=== PATIENT | female | born 1950 | race Caucasian/White ===

== ENCOUNTER → 2018-01-26 11:09 | Outpatient (REF) | payer MEDICARE, OTHER, SELFPAY ==
[2018-01-26 13:25] LABS: Magnesium 1.4 mg/dL (1.8-2.4)
== END ==
LOC: NCHCN 11:09
PROVIDERS: Visit Provider Nurse Practitioner Family
DX: E83.42 Hypomagnesemia (principal)
CPT/HCPCS: 83735

== ENCOUNTER 2018-03-09 00:25 | Outpatient (CLI) | payer MEDICARE, OTHER, SELFPAY ==
--- NOTE | 2018-03-09 07:42 | DI.MAMMO_ITS ---
SYMPTOM/DIAGNOSIS: SCREENING, Z12.31 MAMMOGRAMS: Mammograms were interpreted according to the usual protocol including computer analysis with CAD system, tomosynthesis and C view imaging. Comparison with prior examinations. Breast density D. Stable calcifications are seen in both breasts. No suspicious masses or microcalcifications are seen. The skin and axilla are unremarkable. No evidence for malignancy. IMPRESSION: No evidence for malignancy, yearly mammography is recommended. Category 2, D. MQSA ASSESSMENT OF FINDINGS: Negative with benign findings. Category 2. Patient will receive a letter notifying them of these results. BI-RADS category D. The breasts are extremely dense, which lowers the sensitivity of mammography.
== END 2018-03-09 00:45 ==
PROVIDERS: PCP Nurse Practitioner Family; Visit Provider Nurse Practitioner Family
DX: Z12.31 Encounter for screening mammogram for malignant neoplasm of breast (principal)
CPT/HCPCS: 77063; 77067

== ENCOUNTER 2018-03-09 12:53 | Outpatient (REF) | payer MEDICARE, OTHER, SELFPAY ==
[2018-03-09 14:09] LABS: Magnesium 1.7 mg/dL (1.8-2.4)
== END 2018-03-09 13:13 ==
LOC: NCHCN 12:53
PROVIDERS: PCP Nurse Practitioner Family; Visit Provider Nurse Practitioner Family
DX: K74.60 Unspecified cirrhosis of liver (principal); R16.0 Hepatomegaly, not elsewhere classified; M81.0 Age-related osteoporosis without current pathological fracture; G62.9 Polyneuropathy, unspecified; E83.42 Hypomagnesemia; G47.00 Insomnia, unspecified; I10 Essential (primary) hypertension; N39.3 Stress incontinence (female) (male)
CPT/HCPCS: 83735

== ENCOUNTER 2018-07-12 21:37 | Outpatient (REF) | payer MEDICARE, OTHER, SELFPAY ==
[2018-07-12 22:28] LABS: Abs Immature Grans 0.02 k/cumm (0.0-0.09); Absolute Eosinophil Count 0.14 k/cumm (0.0-0.7); Absolute Lymphocyte Count 1.79 k/cumm (1.2-3.4); Absolute Monocyte Count 1.99 k/cumm (0.11-0.7); Absolute Neutrophil Count 4.21 k/cumm (1.2-6.7); Basophils % 1.2; Eosinophils % 1.7; HCT 40.5 % (36.0-46.0); HGB 13.7 g/dL (12.0-15.5); Immature Grans % 0.2; Lymphocytes % 21.7; Mean Corp. HGB Concentration 33.8 g/dL (32.0-36.0); Mean Corpuscular Hemoglobin 35.2 pg (27.0-33.0); Mean Corpuscular Volume 104.1 fL (80-95); Monocytes % 24.1; Neutrophils % 51.1; RBC 3.89 m/cumm (4.00-5.20); RBC Distribution Width 16.2 % (11.7-14.6); White Blood Cell Count 8.25 k/cumm (4.4-10.8)
[2018-07-12 22:48] LABS: Platelet Count 88 x1000/uL (130-400)
[2018-07-12 22:49] LABS: Diff Comment Agrees w/ Instrument
[2018-07-12 22:50] LABS: Polychromasia Present
[2018-07-12 23:28] LABS: ALT 75 U/L (12-78); AST 221 U/L (15-37); Albumin 2.9 g/dL (3.4-5.0); Alkaline Phosphatase 183 U/L (46-116); Anion Gap 14.4 mmol/L (3-11); BUN 17 mg/dL (7-18); Bilirubin, Total 2.7 mg/dL (0.2-1.0); CO2 24.6 mmol/L (21.0-32.0); CREATININE 0.76 mg/dL (0.55-1.02); Calcium 8.7 mg/dL (8.5-10.1); Chloride 103 mmol/L (98-107); Cholesterol 276 mg/dL (50-200); Glucose 111 mg/dL (70-100); HDL Cholesterol 26 mg/dL (40-60); LDL CHOLESTEROL 151 mg/dL (<100); Magnesium 1.5 mg/dL (1.8-2.4); Potassium 3.6 mmol/L (3.5-5.1); Sodium 142 mmol/L (136-145); Total Protein 7.3 g/dL (6.4-8.2); Triglyceride 619 mg/dL (30-150)
[2018-07-13 00:16] LABS: TSH (W/Ref FT4) 3.76 uIU/mL (0.358-3.74)
[2018-07-13 00:34] LABS: FREE T4 1.18 ng/dL (0.76-1.46)
== END 2018-07-12 21:57 ==
LOC: NCHCN 21:37
PROVIDERS: PCP Nurse Practitioner Family; Visit Provider Nurse Practitioner Family
DX: E83.42 Hypomagnesemia (principal); I10 Essential (primary) hypertension; R42 Dizziness and giddiness; F32.9 Major depressive disorder, single episode, unspecified; K74.60 Unspecified cirrhosis of liver; M81.0 Age-related osteoporosis without current pathological fracture; G62.9 Polyneuropathy, unspecified
CPT/HCPCS: 80053; 80061; 83721; 83735; 84439; 84443; 85025

== ENCOUNTER 2018-07-21 01:59 | Outpatient (CLI) | payer MEDICARE, OTHER, SELFPAY ==
[2018-07-21 09:21] LABS: Triglyceride 241 mg/dL (30-150); Vitamin B12 1882 pg/mL (193-986)
[2018-07-23 12:20] LABS: Thiamine (Vitamin B1), WB 150 nmol/L (70-180)
== END 2018-07-21 02:19 ==
PROVIDERS: PCP Nurse Practitioner Family; Visit Provider Nurse Practitioner Family
DX: E78.1 Pure hyperglyceridemia (principal); K74.60 Unspecified cirrhosis of liver; D75.89 Other specified diseases of blood and blood-forming organs; D69.6 Thrombocytopenia, unspecified
CPT/HCPCS: 36415; 82607; 84425; 84478

== ENCOUNTER 2018-10-12 09:00 | Outpatient (REF) | payer MEDICARE, OTHER, SELFPAY ==
[2018-10-12 13:25] LABS: Magnesium 1.4 mg/dL (1.8-2.4); TSH (W/Ref FT4) 2.66 uIU/mL (0.358-3.74)
== END 2018-10-12 09:20 ==
LOC: NCHCN 09:00
PROVIDERS: PCP Nurse Practitioner Family; Visit Provider Nurse Practitioner Family
DX: E83.42 Hypomagnesemia (principal); E03.9 Hypothyroidism, unspecified; E87.1 Hypo-osmolality and hyponatremia; I10 Essential (primary) hypertension
CPT/HCPCS: 83735; 84443

== ENCOUNTER 2019-02-11 12:17 | Emergency (ER) | payer MEDICARE, OTHER, SELFPAY ==
[2019-02-11] VITALS (15 sets, daily range): BP systolic 171–193; BP diastolic 76–93; PULSE 96–131; RESP 14–23; TEMP 37.2; O2SAT 94–97
--- NOTE | 2019-02-11 12:27 | W.ED.GENAD ---
Discharge Plan Disposition Patient Disposition: HOME Condition: Good Discharge Details Chief Complaint: GenMedical Clinical Impression: Acute dehydration Primary Care Provider: Nohemy Raines ED Provider: Mike Brower Home Meds and New Rx's Prescriptions: Continued niacin 250 MG capsule, extended release 250 mg PO Q OTHER DAY RF: 0 calcium carbonate [Calcium 500] 500 MG tablet 500 mg PO 2 tabs daily RF: 0 epinephrine 0.3 MG/0.3 ML auto-injector 0.3 mg IM PRN RF: 0 cholecalciferol (vitamin D3) 1,000 UNIT capsule 1,000 unit PO DAILY RF: 0 multivitamin [Multi-Day] 1 EACH tablet 1 ea PO DAILY RF: 0 magnesium oxide 400 MG tablet 250 mg PO DAILY RF: 0 VITAMIN C 500 mg PO DAILY RF: 0 lidocaine 15 GM cream 15 gm Topical Q4H PRN Qty: 1 RF: 1 lisinopril 10 MG tablet 10 mg PO DAILY RF: 0 Discharge Instructions Instructions: Dehydration (ED) Additional Instructions: At this time there is no clear evidence of infectious etiology. I am concerned that taking all of your pills on an empty stomach, and being dehydrated may have certainly been a cause of your symptoms. Please make sure to drink 10 to 12 cups of water per day, follow-up closely with your primary care provider. Your platelets are still low, and your bilirubin is still high. Please follow-up closely with your family doctor in regards to this. If you notice any worsening of your symptoms, or any new symptoms such as vomiting, diarrhea, fever, chills, shortness of breath, chest pain, numbness, weakness, or fainting , please return immediately to the emergency department for reevaluation. Please follow up with your primary care provider as soon as possible for reassessment and reevaluation. As always, it was a pleasure participating in your medical care today. Referrals: Nohemy Raines [Primary Care Provider] - Discharge Data Discharge Date/Time-TO BE ENTERED AT DEPARTURE: 02/11/19 16:04 Medical Decision Making This is a pleasant 68-year-old female without any significant past medical history who presents today for evaluation of Reiger's. She woke up this morning and had notable Reiger's and chills. She had no other complaints whatsoever. Review of systems is negative for pelvic, urinary, abdominal, or chest complaints. No clinical evidence of fever, chest pain or shortness of breath. She does have slightly atypical pupils, which may just be chronic anisocoria, however with her atypical symptoms we will get a CT scan of the head for further evaluation. Will evaluate for infectious etiology, rehydrate and reassess. 12 PM Work-up assessment demonstrates normal laboratory work-up, no white count, hemoglobin stable, platelets are slightly low at 61, and bilirubin is slightly high at 3.8. Platelets have been low like this before, bilirubin is usually slightly elevated but not this high. CT scan reveals no evidence of significant gallbladder or ductal pathology, however liver is notably inflamed. Transaminases demonstrate an elevated AST however this is lower than her normal. Troponin and proBNP are benign. TSH normal. Urinalysis negative for any evidence of infection. Ketones are slightly elevated in the urine. CT scan of the head is negative for acute process, chest x-ray negative for acute process and pneumonia, CT abdomen pelvis negative for acute process per Dr. Bonner. There is evidence of notable heterogenicity of the liver, as well as some esophageal varices. Patient denies any hematemesis. She states that she knows her liver is inflamed, and states that she is following up with her primary care provider in regards to this. Patient was given 1 L of normal saline, and after rehydration she states that she is feeling much better and would like to go home. Her shaking and rigors have completely resolved. She remains afebrile, heart rate is completely resolved, blood pressure normal. No clinical evidence of significant urosepsis or sepsis. With a relatively unremarkable work-up, signs and symptoms appear to be consistent with mild dehydration causing her symptomatology. In the absence of any other life-threatening or significant infectious etiology being determined at this point and with the patient requesting to go home I feel that she can be discharged home with close follow-up. Recommend continuation of hydration at home, we discussed red flags for which to return. I have extensively reviewed the treatment plan and discharge instructions with the patient. I have addressed all patient concerns at this time. The patient was made aware of what symptoms to monitor for that would warrant a return to the emergency department. Discussed the plan with the patient, they demonstrate verbal understanding and agreement with our assessment and plan at this time. EKG 12: 24 Rate 114, intervals normal, sinus tachycardia, no significant ST elevation, minimal nonspecific T wave depression less than 1 mm in V5, no reciprocal elevations, Q waves in lead III. NONCONTRAST HEAD CT: There are no prior comparison exams. There is mild atrophy consistent with the patient's age. The ventricles are normal in size. There is no evidence of mass, acute infarct or hemorrhage. There is minimal mucosal thickening of the ethmoid sinuses. The mastoid air cells appear clear. The orbits are unremarkable. IMPRESSION: Negative head CT. ABDOMEN AND PELVIC CT: The liver shows innumerable low density nodules, the largest near the diaphragm in the left lobe. Ascites is seen around the liver. There is some nodularity to the liver surface and the liver is enlarged and extends into the pelvis. The liver size appears to have increased when compared with the previous exam. There is no biliary dilatation. Stones are seen in the gallbladder. There is no abnormal gallbladder distension or wall thickening. The spleen is normal in size. There are numerous varices in a recannulated umbilical vein and extending along the abdominal wall. The portal vein appears patent. There are dilated veins on the right side of the pelvis extending cephalad and terminating in the splenic vein. The pancreas and adrenals appear normal. The kidneys and bladder are unremarkable. A fibroid is seen in the uterus. There is a small amount of fluid in the pelvis. There are prominent diverticula of the descending and sigmoid colon. The appendix appears normal. There is no abnormal bowel distension or wall thickening. No abscess is seen. The lung bases are clear. The bones have a patchy appearance which could be related to osteoporosis. There are degenerative disc changes at L 4-5. IMPRESSION: Markedly enlarged liver with extremely heterogeneous enhancement with numerous low density lesions. There are prominent varices and a small amount of ascites. PA AND LATERAL CHEST: Comparison is made with 07/24/10. The heart size is at the upper limits of normal. The lungs are clear. No infiltrate, effusion, pulmonary edema or mass is seen. IMPRESSION: No acute abnormality. HPI General Date/Time Provider Initiated Documentation: 02/11/19 12:25. HPI Narrative: This is a 68-year-old female with a past medical history of high cholesterol, who presents today for evaluation of Reiger's. Patient states that this morning when she woke up she had mild shaking, she went to her PCP for assessment, was notably concerned with her symptoms and recommended evaluation in the ER. She does admit to mild intermittent headaches over the last week or so, but is currently asymptomatic. She denies any other symptoms. She denies chest pain, shortness of breath, fever, nausea, vomiting, abdominal pain, flank pain, dysuria, hematuria, increase in urinary frequency, numbness, tingling, or weakness. She denies any symptoms like this before. Patient was brought by EMS, EMS did note normal vitals and blood sugar, but also did note slight asymmetry between her right and left eye. Uncertain if this is acute or chronic. Related Data Home Medications Medication Instructions Recorded Confirmed calcium carbonate [Calcium 500] 500 mg PO 2 tabs daily 09/01/13 02/11/19 cholecalciferol (vitamin D3) 1,000 unit PO DAILY 09/01/13 02/11/19 epinephrine 0.3 mg IM PRN 09/01/13 02/11/19 multivitamin [Multi-Day] 1 ea PO DAILY 09/01/13 02/11/19 niacin 250 mg PO Q OTHER DAY 09/01/13 02/11/19 magnesium oxide 250 mg PO DAILY 10/26/15 02/11/19 Vitamin C 500 mg PO DAILY 08/27/16 02/11/19 lidocaine 15 gm TOPICAL Q4H PRN #1 tube 09/24/16 02/11/19 lisinopril 10 mg PO DAILY 09/26/16 02/11/19 Allergies Allergy/AdvReac Type Severity Reaction Status Date / Time hydrochlorothiazide Allergy Severe Unverified 02/11/19 12:31 simvastatin Allergy Severe Kidney Unverified 02/11/19 12:31 failure venom-honey bee Allergy Severe Unverified 02/11/19 12:31 General Stated Complaint: GenMedical KARTHIK: 2 Review of Systems Review of Systems All systems reviewed & are unremarkable except as noted in HPI and below PFSH Medical History Hyperlipidemia Surgical History (Updated 10/02/16 @ 15:40 by Mariya Mcnamara) Colonoscopy - MAC (09/29/16) Social History Smoking/Tobacco Use Status: Former Tobacco Use Alcohol Intake: current Alcohol Intake frequency: holidays/special occasions only Drug use: Never Substance use type: does not use Do you feel safe at home: Yes Do you feel safe in your relationship?: Yes Exam Narrative Exam Narrative: 1.Const: Well-nourished, Well-developed, appearing stated age 2.Eyes: Pupils reactive to light bilaterally, right pupil is slightly smaller when compared to the left. Uncertain if this is acute or chronic. 3.ENT: Atraumatic external nose and ears. Moist MM. Neck: Symmetric, trachea midline, No thyromegaly. Patient demonstrates good movement of cervical neck. There is no nuchal rigidity, no nuchal tenderness. Patient is able to flex the neck without any difficulty or significant pain. Negative Kernig's and Brudzinski sign. 4.CVS: +S1/S2, No murmurs or gallops. Peripheral pulses 2+ and equal in all extremities. Brisk capillary refill in all extremities. 5.RESP: Unlabored respiratory effort. Clear to auscultation bilaterally. No wheezes rales or rhonchi 6.GI: Soft, Nontender/Nondistended, No hepatosplenomegaly. No guarding or rebound. No suprapubic tenderness. 7.MSK: Normocephalic/Atraumatic, Extremities w/o deformity or ttp No cyanosis or clubbing, Normal movement of all extremities 8.Skin: Warm, Dry. No rashes or lesions. 9.Neuro: environmental studies professor II-XII grossly intact. Sensation grossly intact, no focal neurologic deficits. All 6 cardinal planes of vision are fully intact. No evidence of rotatory or vertical nystagmus. The patient demonstrated a normal [id number]-[id number], good dexterity. There was no evidence of dysdiadochokinesia. Patient was able to ambulate without difficulty. There was no wide-based gait. Romberg, and [id number]-[id number] are both normal on testing. Sensation was intact bilaterally as well as muscle strength bilaterally for all extremities. Patient was able to verbalize butter cup with no slurring, or miss pronunciation. No asterixis. Cerebellar function testing is normal. The patient demonstrates a normal hints exam with no findings concerning for a central event. No vertical nystagmus. The head impulse test is negative for any significant central abnormality. Normal test of skew. No suggestion of a central cerebellar event. 10.Psych: (AAO) x3. Appropriate mood and affect Course Vital Signs Temperature 37.2 C 02/11/19 12:16 Pulse 118 H 02/11/19 12:16 Respiratory Rate 20 02/11/19 12:16 Blood Pressure 193/93 H 02/11/19 12:16 Pulse Oximetry 96 02/11/19 12:16 Temperature 37.2 C 02/11/19 12:16 Pulse 118 H 02/11/19 12:16 Respiratory Rate 20 02/11/19 12:16 Blood Pressure 193/93 H 02/11/19 12:16 Blood Pressure Position Sitting 02/11/19 12:16 Pulse Oximetry 96 02/11/19 12:16 Oxygen Delivery Method Room Air 02/11/19 12:16 Oxygen Flow Rate 0 02/11/19 12:16
[2019-02-11] MEDS: Normal Saline 500 ML 1000 ML IV ×2 (12:43→15:30)
[2019-02-11 12:50] LABS: Absolute Basophil Count 0.08 k/cumm (0.0-0.2); Absolute Eosinophil Count 0.02 k/cumm (0.0-0.7); Absolute Lymphocyte Count 0.99 k/cumm (1.2-3.4); Absolute Monocyte Count 1.53 k/cumm (0.11-0.7); Absolute Neutrophil Count 3.28 k/cumm (1.2-6.7); Basophils % 1.4; Eosinophils % 0.3; HCT 41.5 % (36.0-46.0); HGB 14.1 g/dL (12.0-15.5); Lymphocytes % 16.8; Mean Corpuscular Hemoglobin 34.4 pg (27.0-33.0); Mean Corpuscular Volume 101.2 fL (80-95); Mean Platelet Volume 12.1 fL (8.0-11.0); Monocytes % 25.9; Neutrophils % 55.6; RBC Distribution Width 14.5 % (11.7-14.6)
[2019-02-11 13:09] LABS: Bilirubin Negative (Negative); Blood Negative (Negative); Glucose Negative (Negative); Ketones 15 mg/dL (Negative); Leukocyte Esterase Negative (Negative); Nitrite Negative (Negative); Specific Gravity 1.015 (1.005-1.025); pH >= 9.0 (5-8)
[2019-02-11 13:12] LABS: Diff Comment Diff Reviewed; Platelet Count 61 x1000/uL (130-400)
[2019-02-11 13:13] LABS: Macrocytosis 2+
[2019-02-11 13:17] LABS: ALT 55 U/L (14-59); AST 165 U/L (15-37); Albumin 3.4 g/dL (3.4-5.0); Alkaline Phosphatase 135 U/L (46-116); Anion Gap 15.1 mmol/L (3-11); BUN 14 mg/dL (7-18); Bilirubin, Total 3.8 mg/dL (0.2-1.0); CO2 23.9 mmol/L (21.0-32.0); CREATININE 0.65 mg/dL (0.55-1.02); Calcium 9.8 mg/dL (8.5-10.1); Chloride 103 mmol/L (98-107); Glucose 142 mg/dL (70-100); NT-proBNP 162 pg/mL; Potassium 3.6 mmol/L (3.5-5.1); Sodium 142 mmol/L (136-145); TSH (W/Ref FT4) 3.08 uIU/mL (0.36-3.74); Total Protein 8.4 g/dL (6.4-8.2); Troponin I < 0.05 ng/mL (0.00-0.06)
[2019-02-11 13:19] LABS: Bacteria Negative HPF (Negative); Clarity CLOUDY (Clear); Epithelial Cells Rare HPF (Negative); RBC 0-2 (0-2); WBC 0-2 HPF (0-5)
[2019-02-11 13:20] LABS: C & S Indicated? No; Casts Negative LPF (Negative); Crystals Many Amorphous HPF (Negative); Mucus Negative (Negative)
[2019-02-11 13:25] LABS: INR 1.2 (0.9-1.1); PTT Activated 26.9 sec (21.0-31.4); Prothrombin Time 12.1 sec (9.3-11.0)
--- NOTE | 2019-02-11 13:47 | NUR.NOTE ---
Nursing Note: MD Brower made aware of patient BP 190 systolic.
--- NOTE | 2019-02-11 14:04 | DI.CT_ITS ---
SYMPTOM/DIAGNOSIS: HEADACHES, DIZZY, RIGORS NONCONTRAST HEAD CT: There are no prior comparison exams. There is mild atrophy consistent with the patient's age. The ventricles are normal in size. There is no evidence of mass, acute infarct or hemorrhage. There is minimal mucosal thickening of the ethmoid sinuses. The mastoid air cells appear clear. The orbits are unremarkable. IMPRESSION: Negative head CT.
--- NOTE | 2019-02-11 14:12 | DI.COMBO_ITS ---
SYMPTOM/DIAGNOSIS: RIGORS, MILD COUGH, ELEVATED BILI ABDOMEN AND PELVIC CT: The liver shows innumerable low density nodules, the largest near the diaphragm in the left lobe. Ascites is seen around the liver. There is some nodularity to the liver surface and the liver is enlarged and extends into the pelvis. The liver size appears to have increased when compared with the previous exam. There is no biliary dilatation. Stones are seen in the gallbladder. There is no abnormal gallbladder distension or wall thickening. The spleen is normal in size. There are numerous varices in a recannulated umbilical vein and extending along the abdominal wall. The portal vein appears patent. There are dilated veins on the right side of the pelvis extending cephalad and terminating in the splenic vein. The pancreas and adrenals appear normal. The kidneys and bladder are unremarkable. A fibroid is seen in the uterus. There is a small amount of fluid in the pelvis. There are prominent diverticula of the descending and sigmoid colon. The appendix appears normal. There is no abnormal bowel distension or wall thickening. No abscess is seen. The lung bases are clear. The bones have a patchy appearance which could be related to osteoporosis. There are degenerative disc changes at L 4-5. IMPRESSION: Markedly enlarged liver with extremely heterogeneous enhancement with numerous low density lesions. There are prominent varices and a small amount of ascites. PA AND LATERAL CHEST: Comparison is made with 07/24/10. The heart size is at the upper limits of normal. The lungs are clear. No infiltrate, effusion, pulmonary edema or mass is seen. IMPRESSION: No acute abnormality.
== END 2019-02-11 16:04 | disposition home or self-care (01) ==
PROVIDERS: Emergency Provider Student in an Organized Health Care Education/Training Program; PCP Nurse Practitioner Family
DX: E86.0 Dehydration (principal); I85.00 Esophageal varices without bleeding; D69.6 Thrombocytopenia, unspecified; R82.4 Acetonuria; R93.2 Abnormal findings on diagnostic imaging of liver and biliary tract
CPT/HCPCS: 36415; 80053; 87040; 93005; 99285; 70450; 71046; 74177; 81003; 81015; 83880; 84443; 84484; 85025; 85610; 85730; 93010

== ENCOUNTER 2019-05-27 04:56 | Inpatient (IN) | payer MEDICARE, OTHER, SELFPAY ==
[2019-05-27] VITALS (58 sets, daily range): BP systolic 110–196; BP diastolic 50–88; PULSE 83–113; RESP 0–28; TEMP 36.5–38; O2SAT 88–99
--- NOTE | 2019-05-27 04:36 | ED.GENADUL_ITS ---
Discharge Plan Disposition Patient Disposition: [facility] INPATIENT Condition: Stable Discharge Details Chief Complaint: AMS/LOC Clinical Impression: Loss of consciousness, Hyperbilirubinemia Primary Care Provider: Nohemy Raines ED Provider: Dillan Davis Home Meds and New Rx's Prescriptions: No Action niacin 250 MG capsule, extended release 250 mg PO Q OTHER DAY RF: 0 calcium carbonate [Calcium 500] 500 MG tablet 500 mg PO 2 tabs daily RF: 0 epinephrine 0.3 MG/0.3 ML auto-injector 0.3 mg IM PRN RF: 0 cholecalciferol (vitamin D3) 1,000 UNIT capsule 1,000 unit PO DAILY RF: 0 multivitamin [Multi-Day] 1 EACH tablet 1 ea PO DAILY RF: 0 magnesium oxide 400 MG tablet 250 mg PO DAILY RF: 0 VITAMIN C 500 mg PO DAILY RF: 0 lidocaine 15 GM cream 15 gm Topical Q4H PRN Qty: 1 RF: 1 lisinopril 10 MG tablet 10 mg PO DAILY RF: 0 Medical Decision Making 69 yo female with hx of htn and alcohol abuse comes in after a fall. She is not sure why she was awake but fell to the ground. Her reportedly per EMS heard her fall and she was unresponsive for 10 minutes without reported seizure activity then slowly came to and initially was combative. When ems arrived she was oriented x1 and on arrival to the ED is caox4 and has no focal neuro deficits and NIH of 0. She has no complaints other than posterior head pain where she has a hematoma. No chest pain/tenderness, no abdominal pain/tenderness and no pain in extremities with full rom and noback pain or tenderness. Suspect she may have had a seizure given she was not responding for 10 minutes then didn't return to baseline quickly making syncope less likely and she also had incontinence. Will obtian ct head and c spine and obtain lab work and monitor. BGFS per ems was 120. She does have dried blood from both nares and apparently had a nose bleed earlier in the night where ems went to and it had stopped so she refused transport pt's labs show thrombocytopenia, bilirubin of 7 likely from her heavy alcohol use for years, and mild anion gap acidosis. imaging unremarkable. She remains hd stable, is very unsteady on her feet. Spoke with Dr. Murry who will admit for syncope vs seizure Differential Diagnosis Differential Diagnosis: seizure, syncope, tbi, concussion Medical Records Medical records reviewed: Yes I reviewed the patient's medical records. Imaging Data Radiologic Study: Attestation: I personally reviewed and interpreted this imaging study as follows: Imaging: CT Scan Radiologist's impression: no acute findings on head or c spine ct Lab Data Lab results reviewed: Yes I reviewed the patient's lab results. ECG Data Attestation: I personally reviewed and interpreted this ECG (s) as follows: Prior ECG tracings: not available for review Interpretation: sinus rhythm, rate of 99, pr 131, qtc 475 HPI General Mode of arrival: EMS . Date/Time Provider Initiated Documentation: 05/27/19 05:37 . Limitations to Documentation: no limitations . Information obtained by: patient . History of Present Illness 69 year old F presents to the emergency department with the chief complaint of fall, described as moderate, Patient started experiencing this hour(s) (1) and it has been constant. No relieving factors improve symptom(s), No exacerbating factors reported . Related Data Home Medications Medication Instructions Recorded Confirmed calcium carbonate [Calcium 500] 500 mg PO 2 tabs daily 09/01/13 02/11/19 cholecalciferol (vitamin D3) 1,000 unit PO DAILY 09/01/13 02/11/19 epinephrine 0.3 mg IM PRN 09/01/13 02/11/19 multivitamin [Multi-Day] 1 ea PO DAILY 09/01/13 02/11/19 niacin 250 mg PO Q OTHER DAY 09/01/13 02/11/19 magnesium oxide 250 mg PO DAILY 10/26/15 02/11/19 Vitamin C 500 mg PO DAILY 08/27/16 02/11/19 lidocaine 15 gm TOPICAL Q4H PRN #1 tube 09/24/16 02/11/19 lisinopril 10 mg PO DAILY 09/26/16 02/11/19 Allergies Allergy/AdvReac Type Severity Reaction Status Date / Time hydrochlorothiazide Allergy Severe Unverified 02/11/19 12:31 simvastatin Allergy Severe Kidney Unverified 02/11/19 12:31 failure venom-honey bee Allergy Severe Unverified 02/11/19 12:31 General KARTHIK: 2 Review of Systems All systems reviewed & are unremarkable except as noted in HPI and below Constitutional Constitutional: Denies chills, Denies fever(s) and Denies weakness Cardiovascular Cardiovascular: Denies chest pain and Denies dyspnea Respiratory Respiratory: Denies cough and Denies dyspnea Gastrointestinal Gastrointestinal: Denies abdominal pain, Denies nausea and Denies vomiting Musculoskeletal Musculoskeletal: Denies joint swelling Neurologic Neurologic: Denies weakness PFSH Medical History Hyperlipidemia Surgical History (Updated 10/02/16 @ 15:40 by Mariya Mcnamara) Colonoscopy - MAC (09/29/16) Social History Smoking/Tobacco Use Status: Former Tobacco Use Alcohol Intake: current Alcohol Intake frequency: holidays/special occasions only Drug use: Never Substance use type: does not use Do you feel safe at home: Yes Do you feel safe in your relationship?: Yes Exam Const General: no acute distress Orientation: alert HENMT Head: no palpable skull fracture Ears: external ears normal General nose exam: no nasal discharge Mouth: moist mucous membranes Eyes General: appearance normal, both eyes and all related structures Neck Neck: normal visual inspection Resp Effort & Inspection: normal respiratory effort and able to speak in complete sentences Cardio Rate: regular rate Skin General skin exam: jaundice Neuro General: alert and oriented x3 Extrem General: normal to inspection Psych Mental Status: mental status grossly normal
[2019-05-27 04:45] LABS: Abs Immature Grans 0.02 k/cumm (0.0-0.09); HGB 12.8 g/dL (12.0-15.5); Mean Corp. HGB Concentration 34.6 g/dL (32.0-36.0); Mean Corpuscular Hemoglobin 36.2 pg (27.0-33.0); Mean Corpuscular Volume 104.5 fL (80-95); Mean Platelet Volume 11.8 fL (8.0-11.0); RBC 3.54 m/cumm (4.00-5.20); RBC Distribution Width 15.7 % (11.7-14.6); White Blood Cell Count 7.59 k/cumm (4.4-10.8)
--- NOTE | 2019-05-27 05:04 | NUR.NOTE ---
Nursing Note: Pt cleaned up, was incontinent of stool during fall. Slow to respond but appropriate answers. Denies every having ETOH withdrawl or similar symptoms. States drinks ETOH daily, and had been drinking on the evening of 05/26/19.
[2019-05-27 05:06] LABS: Absolute Eosinophil Count 0.08 k/cumm (0.0-0.7); Absolute Lymphocyte Count 1.59 k/cumm (1.2-3.4); Absolute Monocyte Count 2.35 k/cumm (0.11-0.7); Absolute Neutrophil Count 3.57 k/cumm (1.2-6.7); Diff Comment Manual Differential
--- NOTE | 2019-05-27 05:06 | NUR.NOTE ---
Nursing Note: Pt to CT scan for scans of head and neck. Accompanied by polysomnographic technologist.
[2019-05-27 05:07] LABS: ALT 30 U/L (14-59); AST 103 U/L (15-37); Albumin 2.5 g/dL (3.4-5.0); Alkaline Phosphatase 136 U/L (46-116); Anion Gap 15.6 mmol/L (3-11); BUN 11 mg/dL (7-18); Bilirubin, Total 7.1 mg/dL (0.2-1.0); CO2 20.4 mmol/L (21.0-32.0); CREATININE 0.83 mg/dL (0.55-1.02); Calcium 8.6 mg/dL (8.5-10.1); Chloride 103 mmol/L (98-107); ETHANOL BLOOD < 3.0 mg/dL (<3); Glucose 127 mg/dL (74-106); Macrocytosis 2+; Magnesium 1.2 mg/dL (1.8-2.4); NT-proBNP 890 pg/mL (<300); Potassium 3.5 mmol/L (3.5-5.1); Sodium 139 mmol/L (136-145)
[2019-05-27 05:09] LABS: Troponin I < 0.05 ng/Ml (<0.06)
--- NOTE | 2019-05-27 05:10 | DI.CT_ITS ---
EXAM: CT HEAD CERVICAL SPINE WO CLINICAL HISTORY: fall, pain TECHNIQUE: The exam was performed according to the usual protocol. COMPARISON: CT HEAD WO from 02/11/2019 FINDINGS: CT head: The ventricles and sulci are consistent with the patient's age. There is no acute intracranial hemor rhage, midline shift or mass effect. The ventricles are intact. The basilar cisterns are patent. T he calvarium is intact. There are findings of chronic sinus disease. No fluid levels are seen in th e visualized paranasal sinuses. The mastoid air cells are well pneumatized. There is a scalp hemato ma overlying the right parietal bone. CT spine: No acute fractures or subluxations are seen in the cervical spine. Degenerative changes are present throughout the cervical spine. The odontoid is intact. The lateral masses are well aligned. The so ft tissues are unremarkable. IMPRESSION: 1. No acute intracranial process or calvarial fracture. 2. Right parietal scalp hematoma. 3. No acute fracture or subluxation in the cervical spine.
--- NOTE | 2019-05-27 05:24 | DI.VRAD_ITS ---
PROCEDURE INFORMATION: Exam: CT Head Without Contrast Exam date and time: 05/27/2019 4:58 AM Age: 69 years old Clinical history: Injury or trauma; Fall; Initial encounter; Blunt trauma (contusions or hematomas); Consciousness not specified; Injury date: 05/27/2019 TECHNIQUE: Imaging protocol: Computed tomography of the head without contrast. Radiation optimization: All CT scans at this facility use at least one of these dose optimization techniques: automated exposure control; mA and/or kV adjustment per patient size (includes targeted exams where dose is matched to clinical indication); or iterative reconstruction. COMPARISON: CT HEAD WO 02/11/2019 1:58 PM FINDINGS: Brain: Age-related involutional changes and chronic microvascular ischemic disease. No evidence for acute transcortical infarct. No mass effect or midline shift. No extra-axial collection. No acute intracranial hemorrhage. Basal cisterns are patent. Ventricles: Normal. No ventriculomegaly. Bones/joints: No acute calvarial fracture. Sinuses: Mucosal thickening involving the maxillary sinuses. Mastoid air cells: Visualized mastoid air cells are well aerated. Soft tissues: Right frontal scalp hematoma. No radiopaque foreign body. IMPRESSION: 1. Right frontal scalp hematoma. No radiopaque foreign body. No acute calvarial fracture. 2. No evidence for acute transcortical infarct, acute intracranial hemorrhage, or mass effect. PROCEDURE INFORMATION: Exam: CT Cervical Spine Without Contrast Exam date and time: 05/27/2019 4:58 AM Age: 69 years old Clinical history: Injury or trauma; Fall; Initial encounter; Blunt trauma (contusions or hematomas); Consciousness not specified; Injury date: 05/27/2019 TECHNIQUE: Imaging protocol: Computed tomography images of the cervical spine without contrast. Radiation optimization: All CT scans at this facility use at least one of these dose optimization techniques: automated exposure control; mA and/or kV adjustment per patient size (includes targeted exams where dose is matched to clinical indication); or iterative reconstruction. COMPARISON: CT HEAD WO 02/11/2019 1:58 PM FINDINGS: Vertebrae: No acute fracture or traumatic subluxation. No spondylolisthesis. The atlantooccipital and atlantoaxial articulations are intact. Facet joint alignments are maintained. Discs/Spinal canal/Neural foramina: Age-related degenerative disc disease. Multilevel degenerative changes of the cervical spine. Other bones/joints: Occipital condyles are intact. Prevertebral Space: No prevertebral soft tissue swelling. Soft tissues: Unremarkable. Lungs: Interlobular septal thickening seen at both lung apices. IMPRESSION: 1. No acute fracture or traumatic subluxation. 2. Interlobular septal thickening seen at both lung apices. This may represent pulmonary vascular congestion. Dictated and Authenticated by: Danish Lares MD. Ordering:MITESH Grimaldo MD
--- NOTE | 2019-05-27 05:42 | NUR.NOTE ---
Nursing Note:Pt very shaky on initial attempt to get out bed.
[2019-05-27 05:57] LABS: INR 1.4 (0.9-1.1); PTT Activated 27.8 sec (21.0-31.4); Prothrombin Time 13.8 sec (9.3-11.0)
[2019-05-27 06:00] LABS: Bilirubin, Direct 4.58 mg/dL (0.00-0.20)
--- NOTE | 2019-05-27 06:04 | W.PM.HP.N ---
Date of service: 05/27/19 Time of Service: 06:04 Assessment and Plan Assessment and plan (1) Loss of consciousness: Status: Acute Assessment and plan: LOC. Unclear if primary event was seizure, syncope or mechanical fall -- and whether subsequent confusion was due to primary inciting event or to concussion. All of this in the setting of worsening hepatic synthetic function (and unsteadiness) which in turn is likely secondary to ongoing alcohol use. LOC: will watch on telemetry and use seizure precautions. Unsteadiness PT consult Liver failure, w/o encephalopathy. trial dose Vitamin K, track labs Etoh: [place] protocol History of Present Illness History of Present Illness Chief Complaint: LOC Narrative: 69 female with h/o alcohol abuse. In usual state of health earlier today, then heard a crash, found patient on floor unresponsive, lasting 10 minutes. Came to , combative, confusion resolved by time of arrival in ER. In ER findings of note for scalp hematoma, bilirubin of 7.1 (most recent prior 3.8), Mg 1.2, INR 1.[address] head and spine (except for scalp hematoma). patient noted to be very unsteady on feet, admitted for further management. Patient has no recollection of these events, history per and ER. Review of Systems All systems reviewed & are unremarkable except as noted in HPI and below PFSH Medical History Hyperlipidemia Surgical History Colonoscopy - MAC (09/29/16) Social History Smoking/Tobacco Use Status: Former Tobacco Use Alcohol Intake: current Alcohol Intake frequency: holidays/special occasions only Drug use: Never Substance use type: does not use Do you feel safe at home: Yes Do you feel safe in your relationship?: Yes Meds Home Medications and Allergies Home Medications Medication Instructions Recorded Confirmed Type calcium carbonate [Calcium 500] 500 mg PO 2 tabs daily 09/01/13 02/11/19 History cholecalciferol (vitamin D3) 1,000 unit PO DAILY 09/01/13 02/11/19 History epinephrine 0.3 mg IM PRN 09/01/13 02/11/19 History multivitamin [Multi-Day] 1 ea PO DAILY 09/01/13 02/11/19 History niacin 250 mg PO Q OTHER DAY 09/01/13 02/11/19 History magnesium oxide 250 mg PO DAILY 10/26/15 02/11/19 History Vitamin C 500 mg PO DAILY 08/27/16 02/11/19 History lidocaine 15 gm TOPICAL Q4H PRN #1 tube 09/24/16 02/11/19 History lisinopril 10 mg PO DAILY 09/26/16 02/11/19 History Allergies Allergy/AdvReac Type Severity Reaction Status Date / Time hydrochlorothiazide Allergy Severe Unverified 02/11/19 12:31 simvastatin Allergy Severe Kidney Unverified 02/11/19 12:31 failure venom-honey bee Allergy Severe Unverified 02/11/19 12:31 Exam Narrative Exam Narrative: 147/81, 102, 16, 36.9. HEENT blood per nares, and contusion of tip of tongue. Neck supple; lungs clear; heart RRR; abdomen distended, some guarding, no hepatomegaly by palpation or percussion, no splenomegaly; pelvic/rectal deferred; extremities w/o edema; neuro Ox3, moves all 4s, tremulous, no asterixis Results Labs Result diagrams: 05/27/19 04:15 05/27/19 04:15 Labs: Laboratory Results - last 24 hr 05/27/19 05/27/19 05/27/19 04:15 04:15 04:15 WBC 7.59 RBC 3.54 L Hgb 12.8 Hct 37.0 MCV 104.5 H MCH 36.2 H MCHC 34.6 RDW 15.7 H Plt Count 70 L MPV 11.8 H Immature Gran % 0.0 Neutrophils % 47.0 Lymphocytes % 21.0 Monocytes % 31.0 Eosinophils % 1.0 Basophils % 0.0 Absolute Neutrophils 3.57 Absolute Lymphocytes 1.59 Absolute Monocytes 2.35 H Absolute Eosinophils 0.08 Absolute Basophils 0.00 Differential Comment Manual differential RBC Morphology See below Macrocytosis 2+ PT INR APTT Sodium 139 Potassium 3.5 Chloride 103 Carbon Dioxide 20.4 L Anion Gap 15.6 H BUN 11 Creatinine 0.83 Estimated GFR/1.73 m2 >= 60.00 Glucose 127 H Calcium 8.6 Magnesium 1.2 L Total Bilirubin 7.1 H Conjugated Bilirubin 4.58 H AST 103 H ALT 30 Alkaline Phosphatase 136 H Troponin I < 0.05 NT-Pro-B Natriuret Pep 890 Total Protein 7.0 Albumin 2.5 L Ethyl Alcohol < 3.0 05/27/19 04:15 WBC RBC Hgb Hct MCV MCH MCHC RDW Plt Count MPV Immature Gran % Neutrophils % Lymphocytes % Monocytes % Eosinophils % Basophils % Absolute Neutrophils Absolute Lymphocytes Absolute Monocytes Absolute Eosinophils Absolute Basophils Differential Comment RBC Morphology Macrocytosis PT 13.8 H INR 1.4 H APTT 27.8 Sodium Potassium Chloride Carbon Dioxide Anion Gap BUN Creatinine Estimated GFR/1.73 m2 Glucose Calcium Magnesium Total Bilirubin Conjugated Bilirubin AST ALT Alkaline Phosphatase Troponin I NT-Pro-B Natriuret Pep Total Protein Albumin Ethyl Alcohol Last Vital Signs Temp 36.9 C 05/27/19 04:52 Pulse 102 H 05/27/19 04:52 Resp 16 05/27/19 04:57 BP 147/81 H 05/27/19 04:52 Pulse Ox 99 05/27/19 04:52
[2019-05-27] MEDS: MAGNESIUM SULFATE 2 GM/50 ML BAG IVPB ×2 (06:40→11:22)
[2019-05-27] MEDS: levETIRAcetam 1,000 MG in Normal Saline 100 ML 400 MG IVPB (06:45)
[2019-05-27] MEDS: LORazepam 2 MG/ML VIAL 1 MG IVP (06:49)
--- NOTE | 2019-05-27 07:36 | DI.CT_ITS ---
EXAM: CT ABDOMEN WO CLINICAL HISTORY: abdominal distension, liver failure TECHNIQUE: The exam was performed according to the usual protocol. COMPARISON: CT ABDOMEN PELVIS W from 02/11/2019 FINDINGS: Small bilateral pleural effusions and bilateral subjacent infiltrates. These may represent atelectas is or pneumonia. There is a nodular contour to the liver. There is an enlarged left lobe. There are numerous hypoden se nodules seen throughout the liver. This is unchanged compared to the CT scan from 02/11/2019. Th e findings are consistent with a cirrhotic liver. There is cholelithiasis. There is gallbladder wall thickening and pericholecystic fluid. This may b e due to the abdominal ascites. No biliary ductal dilatation is present. Pancreas is unremarkable. The spleen is at the upper limits of normal in size. The adrenal glands are unremarkable. The kidneys show no evidence of nephrolithiasis or hydronephrosis. There is atherosclerosis of the abdominal aorta but no aneurysmal dilatation. There is mild to moderate amount of abdominal ascites. There are prominent varices seen in the anterior abdomen and abdominal wall. Bowel shows no evidence of obstruction. There is colonic diverticulosis but no evidence of acute div erticulitis. Degenerative changes are seen in the spine. IMPRESSION: 1. Findings of hepatic cirrhosis and sequelae of portal venous hypertension. [id number] ascite s. 2. Small bilateral pleural effusions and subjacent infiltrates which may represent atelectasis or pne umonia. 3. Cholelithiasis and gallbladder wall thickening. This may be due to the abdominal ascites. Acute cholecystitis should also be considered. 4. Colonic diverticulosis but no evidence of acute diverticulitis.
--- NOTE | 2019-05-27 07:58 | DI.VRAD_ITS ---
PROCEDURE INFORMATION: Exam: CT Abdomen Without Contrast Exam date and time: 05/27/2019 7:37 AM Age: 69 years old Clinical history: Other: Abdominal distention, liver failure TECHNIQUE: Imaging protocol: Computed tomography images of the abdomen without contrast. Radiation optimization: All CT scans at this facility use at least one of these dose optimization techniques: automated exposure control; mA and/or kV adjustment per patient size (includes targeted exams where dose is matched to clinical indication); or iterative reconstruction. COMPARISON: CT ABDOMEN PELVIS W 02/11/2019 2:04 PM report 02/11/2019. FINDINGS: Lungs: Bibasilar consolidations which may be atelectasis or less likely pneumonia. Pleural space: Small pleural effusions, left side larger than right. Liver: Enlarged cirrhotic appearing liver. There are numerous tiny hypodensities throughout the liver which may be small cysts or regenerating nodules. These were previously described. Gallbladder and bile ducts: Cholelithiasis. Gallbladder is moderately distended with a thickened wall which may be related to acute cholecystitis versus hydrops. No biliary ductal dilatation. Pancreas: Normal. No ductal dilation. Spleen: Spleen is within upper limits of normal. Adrenals: Normal. No mass. Kidneys and ureters: No renal stones or hydronephrosis. Stomach and bowel: Scattered colonic diverticula. Normal caliber small bowel. Intraperitoneal space: No free air. Mild ascites. Lymph nodes: Unremarkable. No enlarged lymph nodes. Vasculature: Prominent varices are seen in the anterior abdominal wall. Atherosclerotic aorta without aneurysm . Bones/joints: Degenerative changes in the spine IMPRESSION: 1. Cholelithiasis and gallbladder wall thickening which may be related to inflammation or hydrops. Correlate clinically for possible acute cholecystitis. 2. Mild ascites. 3. Cirrhotic liver with sequela of portal venous hypertension. 4. Small pleural effusions and bibasilar consolidations which likely represent atelectasis. 5. Colonic diverticulosis. Dictated and Authenticated by: Meredith Duncan MD. Ordering:RHETT Clements MD
[2019-05-27] MEDS: Multivitamin TAB 1 TAB PO (08:15)
[2019-05-27] MEDS: Folic Acid 1 MG TAB PO (08:42)
[2019-05-27] MEDS: Thiamine 100 MG TAB PO (08:42)
--- NOTE | 2019-05-27 10:00 | PT.INNT ---
Date of service: 05/27/19 Time of Service: 10:01 PT Notes Visit Reasons: SYNCOPE VS SEIZURE Referral for skilled PT services received today at 12/07/2018 for unsteadiness and recent fall. Per ICU nurse, patient has had no sleep and and recently had two episodes of tonic-clonic seizures. Patient is currently sleeping at time of visit. PT and nurse both agreed to hold off on evaluation until later today to have a more productive session. Patient will be seen this afternoon for PT evaluation as ordered. Thank you very much for this referral. Onelia Means PT, DPT, CLT [facility] Inpatient [facility] at [facility]
--- NOTE | 2019-05-27 10:46 | PHARADMIT ---
Addendum entered by Eleonora Layne 05/31/19 12:41: Pharmacy Note Subjective low grade fevers but improving Objective CIWA zero, temp 37.7, stool heme negative, cloudy/dark urine K+ 3.5, Mag 1.6, LFT's/Bili down Imaging shows possible Gallstones on ultrasound, enlarged liver Assessment Lorazepam for CIWA dc'd Lactulose continues (via NG tube) Zosyn changed to Unasyn for 5 days Holding DVT prophylaxis due to heme+ stool yesterday and epistaxis Plan Possible Cholecysectomy as outpt, discharge likely Thursday06/01/19 Addendum entered by Jaison Barrera III 05/30/19 15:07: Pharmacy Note Subjective Alcoholic cirrhosis, CIWA withdrawal appears complete. NG tube removed. Fever of unresolved origin has subsided. Paracentesis and CSK,urine and blood cultures:negative.Plan is to continue IV ABX as proph for aspiration pneumonia Objective BP-106/46 VS-OK Mag-1.6 K+3.4 SCr-0.86 INR-1.4 stool heme + (Lovenox dc'd) Assessment Zyson continues, No Lorazepam usage since 05/29 (10:39).Lactulose for encephalopathy continues (Ammonia -41H) Plan Hepatic encephalopathy improving on Lactulose, Addendum entered by Mary Patino 05/29/19 14:54: Pharmacy Note Subjective continues to be febrile Objective BP-105/51 RR-18 Tmax-39.2 mag-1.6 CIWA-22 this morning Assessment ongoing fever despite starting zosyn(cover for possible aspiration pneumonia) paracentesis and LP done zosyn continues (day 2 starts this evening) IV mag replacement given lactulose changed from MT to PO, IV fluids stopped and X1 dose lasix give Plan ECHO tomorrow, watch VS and mag, micro results Addendum entered by Mary Patino 05/28/19 14:12: Pharmacy Note Subjective pt actively withdrawing per morning report Objective Bp-115/53 other VS okay K+3.3 mag-1.4 CIWA-16 Assessment mag replacement given CIWA meds changed, currently has oxazepam PO and lorazepam IV ordered Plan continue to watch VS, labs and for med changes Original Note: Admission Pharmacy Clinical Review Syncope vs. seizure Code Status Full Code Current Weight 57.5 kg Renally Cleared and Narrow Therapeutic Index Meds Crcl ~48.9 mL/min current meds okay QTc Value / Action Taken QTc 475 BP Control, Fever BP 128/69 afebrile Electrolytes reviewed mag 1.2 replacement given DVT Prophylaxis none Opiate Usage / Scheduled Bowel Regimen Ordered no/no Plt/SCr for Heparin / Enoxaparin plt 70 SCr 0.83 INR for Warfarin n/a H/H stable, WBC/Bands h/h 12.8/37.0 WBC 7.59 Antibiotic appropriateness none Cultures and Sensitivities none Surgical ABX d/c within 24 hr n/a DM control / Insulin Dosing BG 127 none Heart Failure (Check EF%) (MELODIE's, B-Block, Diuretics) none IV to PO Switch n/a Home Meds Reviewed -multiple forms of vitamin D increase risk of toxicity -separate admin of calcium carbonate from multivitamin Home Meds Not Ordered niacin, magnesium oxide(IV replacement given), ascorbic acid, lisinopril, cholecalciferol, calcium carbonate, lidocaine(PRN/unconfirmed), epinephrine(PRN) Comments pt. had seizure in ED per morning report/ED visit note AST-103, T.Bilirubin-7.1
[2019-05-27] MEDS: LORazepam 1 MG TAB PO/SL ×5 (11:20→23:06)
--- NOTE | 2019-05-27 12:12 | PDOC.CMIN ---
Care Management Initial Assess REASON FOR HOSPITALIZATION:: [id number] PAST MEDICAL HISTORY/PAST SURGICAL HISTORY:: Alcohol abuse, Hyperlipidemia, Colonoscopy-MAC PREVIOUS FUNCTIONAL STATUS/SOCIAL/FAMILY SUPPORTS:: Meredith resides in [place], [place] with her , Tyree. She is independent with all ADLs in the community. CURRENT FUNCTIONAL STATUS:: Per ICU nurse, patient has had no sleep and and recently had two episodes of tonic-clonic seizures. Patient is currently sleeping at time of visit. She remains on CIWA protocol at this time. ADVANCE DIRECTIVES:: None on file at [facility]. Has patient been provided with information about the portal?: Yes Did the patient sign up for the portal?: Yes (Previously ) CODE STATUS:: Full Code INSURANCE COVERAGE / FINANCIAL ISSUES:: Medicare: [employer] notice. [employer] CURRENT HOME/COMMUNITY SERVICES/EQUIPMENT:: No current services or equipment. PRIMARY CARE PHYSICIAN:: Nohemy Raines POTENTIAL DISCHARGE NEEDS:: Discussion re: community [id number] supports for alcohol treatment. Referral to Bench Technician. Evaluations for futher needs. PATIENT/FAMILY EDUCATION NEEDS:: Review discharge instructions, discuss Ask Me Three. ANTICIPATED BARRIERS TO DISCHARGE:: None identified at this time. TRANSPORTATION:: Via private vehicle with her . PLAN:: Meredith will discharge home when ready per MD. She will be provided sober resources and meet with a Bench Technician, when able. CM will continue to follow and support discharge planning considerations.
[2019-05-27] MEDS: Lactated Ringers 1,000 ML 1000 ML IV (13:57)
[2019-05-27] MEDS: Normal Saline Flush 10 ML SYR IVP ×2 (13:57→21:14)
--- NOTE | 2019-05-27 15:09 | CHAPLAIN ---
Meredith was in bed, awake but not totally coherent when I visited. I explained my role and offered support. Meredith is a member of the [facility] and I let her know that Fr. Aguirre may be visiting today and she can accept or decline his offer to visit.
--- NOTE | 2019-05-27 15:53 | CHAPLAIN ---
I went back to meet Meredith's Darren. He's staying a bit longer and then going home to take care of animals. I explained my role and offered support and brought a prayer shawl for Meredith who was sleeping at the time.
--- NOTE | 2019-05-27 16:19 | PT.INTREAT ---
Date of service: 05/27/19 Time of Service: 16:19 PT Notes Visit Reasons: SYNCOPE VS SEIZURE A second attempt at evaluation was made in the afternoon for patient but nurses stated that patient continues to be not appropriate for PT due to withrawal symptoms and ill-response to Ativan intake. Will wait for another referral as soon as patient becomes suitable and ready for services. STAFF DEVELOPER consulted and updated of plan. Thank you very much for this referral. Onelia Means PT, DPT, CLT [facility] Inpatient [facility] at [facility]
--- NOTE | 2019-05-27 16:38 | W.PM.PROGNOT ---
Date of Service Date of service: 05/27/19 Time of Service: 16:38 Assessment and Plan Assessment and plan (1) Alcohol withdrawal: Status: Acute Assessment and plan: with alcohol withdrawal seizure on arrival. will continue to monitor on CIWA and lorazepam per protocol (2) Alcoholic cirrhosis: Status: Acute Assessment and plan: MELD score is currently 31 indicating a 52.6% 3 month mortality. she does have mild-moderate ascites and peripheral edema, she may ultimately benefit from diuretic regimen. she is having some intermittent somnolence which may be secondary to benzos, however we will check an ammonia level (3) Thrombocytopenia: Status: Chronic Assessment and plan: secondary to alcohol abuse, will monitor (4) Hypomagnesemia: Status: Acute Assessment and plan: monitor and replete prn Objective Objective Clinical Data: Abnormal lab results 05/27/19 05/27/19 05/27/19 Range/Units 04:15 04:15 04:15 RBC 3.54 L (4.00-5.20) m/cumm MCV 104.5 H (80-95) fL MCH 36.2 H (27.0-33.0) pg RDW 15.7 H (11.7-14.6) % Plt Count 70 L (130-400) x1000/uL MPV 11.8 H (8.0-11.0) fL Absolute Monocytes 2.35 H (0.11-0.7) k/cumm PT (9.3-11.0) sec INR (0.9-1.1) Carbon Dioxide 20.4 L (21.0-32.0) mmol/L Anion Gap 15.6 H (3-11) mmol/L Glucose 127 H (74-106) mg/dL Magnesium 1.2 L (1.8-2.4) mg/dL Total Bilirubin 7.1 H (0.2-1.0) mg/dL Conjugated Bilirubin 4.58 H (0.00-0.20) mg/dL AST 103 H (15-37) U/L Alkaline Phosphatase 136 H (46-116) U/L Albumin 2.5 L (3.4-5.0) g/dL 05/27/19 Range/Units 04:15 RBC (4.00-5.20) m/cumm MCV (80-95) fL MCH (27.0-33.0) pg RDW (11.7-14.6) % Plt Count (130-400) x1000/uL MPV (8.0-11.0) fL Absolute Monocytes (0.11-0.7) k/cumm PT 13.8 H (9.3-11.0) sec INR 1.4 H (0.9-1.1) Carbon Dioxide (21.0-32.0) mmol/L Anion Gap (3-11) mmol/L Glucose (74-106) mg/dL Magnesium (1.8-2.4) mg/dL Total Bilirubin (0.2-1.0) mg/dL Conjugated Bilirubin (0.00-0.20) mg/dL AST (15-37) U/L Alkaline Phosphatase (46-116) U/L Albumin (3.4-5.0) g/dL Vital Signs Temperature 37.6 C H 05/27/19 12:55 Temperature Source Tympanic 05/27/19 12:55 Pulse 92 H 05/27/19 16:03 Pulse 86 05/27/19 15:30 Respiratory Rate 16 05/27/19 15:30 Respiratory Effort Non-Labored 05/27/19 12:55 Respiratory Depth Normal 05/27/19 12:55 Respiratory Pattern Normal 05/27/19 12:55 Blood Pressure 132/71 05/27/19 14:52 Blood Pressure Mean 86 05/27/19 14:52 Blood Pressure Position Supine 05/27/19 09:55 Pulse Oximetry 95 05/27/19 15:30 Oxygen Delivery Method Room Air 05/27/19 12:55 Oxygen Flow Rate 0 05/27/19 12:55 Pain Level 3 05/27/19 12:55 Intake & Output 05/26/19 05/27/19 05/27/19 23:59 11:59 23:59 Intake Total 160 / 1400 1240 / 1400 Output Total 200 / 200 Balance 160 / 1200 1040 / 1200 Weight 57.5 kg Intake: IV 160 / 1160 1000 / 1160 Oral 240 / 240 Output: Urine 200 / 200 Other: Urine Color Dark Moni Brown Urine Odor Strong Voiding Methods Bedpan Laboratory Results WBC 7.59 k/cumm (4.4-10.8) 05/27/19 04:15 RBC 3.54 m/cumm (4.00-5.20) L 05/27/19 04:15 Hgb 12.8 g/dL (12.0-15.5) 05/27/19 04:15 Hct 37.0 % (36.0-46.0) 05/27/19 04:15 MCV 104.5 fL (80-95) H 05/27/19 04:15 MCH 36.2 pg (27.0-33.0) H 05/27/19 04:15 MCHC 34.6 g/dL (32.0-36.0) 05/27/19 04:15 RDW 15.7 % (11.7-14.6) H 05/27/19 04:15 Plt Count 70 x1000/uL (130-400) L 05/27/19 04:15 MPV 11.8 fL (8.0-11.0) H 05/27/19 04:15 Immature Gran % 0.0 05/27/19 04:15 Neutrophils % 47.0 05/27/19 04:15 Lymphocytes % 21.0 05/27/19 04:15 Monocytes % 31.0 05/27/19 04:15 Eosinophils % 1.0 05/27/19 04:15 Basophils % 0.0 05/27/19 04:15 Absolute Neutrophils 3.57 k/cumm (1.2-6.7) 05/27/19 04:15 Absolute Lymphocytes 1.59 k/cumm (1.2-3.4) 05/27/19 04:15 Absolute Monocytes 2.35 k/cumm (0.11-0.7) H 05/27/19 04:15 Absolute Eosinophils 0.08 k/cumm (0.0-0.7) 05/27/19 04:15 Absolute Basophils 0.00 k/cumm (0.0-0.2) 05/27/19 04:15 Differential Comment Manual differential 05/27/19 04:15 RBC Morphology See below 05/27/19 04:15 Macrocytosis 2+ 05/27/19 04:15 PT 13.8 sec (9.3-11.0) H 05/27/19 04:15 INR 1.4 (0.9-1.1) H 05/27/19 04:15 APTT 27.8 sec (21.0-31.4) 05/27/19 04:15 Sodium 139 mmol/L (136-145) 05/27/19 04:15 Potassium 3.5 mmol/L (3.5-5.1) 05/27/19 04:15 Chloride 103 mmol/L (98-107) 05/27/19 04:15 Carbon Dioxide 20.4 mmol/L (21.0-32.0) L 05/27/19 04:15 Anion Gap 15.6 mmol/L (3-11) H 05/27/19 04:15 BUN 11 mg/dL (7-18) 05/27/19 04:15 Creatinine 0.83 mg/dL (0.55-1.02) 05/27/19 04:15 Estimated GFR/1.73 m2 >= 60.00 (mL/min/1.73m2) 05/27/19 04:15 Glucose 127 mg/dL (74-106) H 05/27/19 04:15 Calcium 8.6 mg/dL (8.5-10.1) 05/27/19 04:15 Magnesium 1.2 mg/dL (1.8-2.4) L 05/27/19 04:15 Total Bilirubin 7.1 mg/dL (0.2-1.0) H 05/27/19 04:15 Conjugated Bilirubin 4.58 mg/dL (0.00-0.20) H 05/27/19 04:15 AST 103 U/L (15-37) H 05/27/19 04:15 ALT 30 U/L (14-59) 05/27/19 04:15 Alkaline Phosphatase 136 U/L (46-116) H 05/27/19 04:15 Troponin I < 0.05 ng/Ml (<0.06) 05/27/19 04:15 NT-Pro-B Natriuret Pep 890 pg/mL (<300) 05/27/19 04:15 Total Protein 7.0 g/dL (6.4-8.2) 05/27/19 04:15 Albumin 2.5 g/dL (3.4-5.0) L 05/27/19 04:15 Ethyl Alcohol < 3.0 mg/dL (<3) 05/27/19 04:15
[2019-05-27 18:09] LABS: Ammonia 62 umol/L (11-32)
[2019-05-28] VITALS (37 sets, daily range): BP systolic 112–155; BP diastolic 53–97; PULSE 80–119; RESP 15–34; TEMP 37.2–38.9; O2SAT 80–98
[2019-05-28] MEDS: LORazepam 1 MG TAB PO/SL ×3 (01:22→07:08)
[2019-05-28] MEDS: Normal Saline Flush 10 ML SYR IVP ×2 (03:31→04:11)
[2019-05-28] MEDS: LORazepam 2 MG/ML VIAL IVP ×6 (03:31→21:58)
[2019-05-28 06:55] LABS: HCT 33.6 % (36.0-46.0); HGB 11.5 g/dL (12.0-15.5); Mean Corp. HGB Concentration 34.2 g/dL (32.0-36.0); Mean Corpuscular Hemoglobin 35.7 pg (27.0-33.0); Mean Corpuscular Volume 104.3 fL (80-95); Mean Platelet Volume 11.3 fL (8.0-11.0); RBC 3.22 m/cumm (4.00-5.20); RBC Distribution Width 15.9 % (11.7-14.6)
[2019-05-28 07:11] LABS: Ammonia 73 umol/L (11-32); INR 1.4 (0.9-1.1); Prothrombin Time 14.2 sec (9.3-11.0)
[2019-05-28 07:14] LABS: ALT 26 U/L (14-59); AST 78 U/L (15-37); Anion Gap 7.8 mmol/L (3-11); BUN 11 mg/dL (7-18); Bilirubin, Total 5.6 mg/dL (0.2-1.0); CO2 25.2 mmol/L (21.0-32.0); CREATININE 0.64 mg/dL (0.55-1.02); Calcium 8.2 mg/dL (8.5-10.1); Chloride 108 mmol/L (98-107); Glucose 93 mg/dL (74-106); Magnesium 1.4 mg/dL (1.8-2.4); Potassium 3.3 mmol/L (3.5-5.1); Sodium 141 mmol/L (136-145)
[2019-05-28 07:18] LABS: Platelet Count 74 x1000/uL (130-400)
--- NOTE | 2019-05-28 08:18 | PDOC.CMPRO ---
Care Management Progress Note S/O: Meredith remains in the ICU at this time on CIWA protocol with lorazepam for alcohol withdrawal with seizure. She was lying in bed, and unable to meaningfully engage with this medical technical writer. Per MD, Meredith has alcoholic cirrhosis, mild-moderate ascites and peripheral edema. Per RN, Meredith is disoriented, has had periods of agitation and is requiring increased medications. CM continues to follow. A: 69 year old female admitted to [facility] 05/27/19 for [id number] P: Meredith will discharge home when ready per MD. She will be provided sober resources and meet with a Environmental Consultant, when able. CM will continue to follow and support discharge planning considerations.
[2019-05-28] MEDS: MAGNESIUM SULFATE 4 GM/100 ML BAG IVPB (09:37)
--- NOTE | 2019-05-28 14:07 | W.PM.PROGNOT ---
Date of Service Date of service: 05/28/19 Time of Service: 14:07 Assessment and Plan Assessment and plan (1) Alcohol withdrawal: Status: Acute Assessment and plan: Reported alcohol withdrawal seizure on arrival. will continue to monitor on CIWA. Oxezapam prefered with cirrhosis, but will have to use lorazepam for now given not taking PO. (2) Alcoholic cirrhosis: Status: Acute Assessment and plan: MELD score 31 on admission, Child Frances Medina score 12, both suggesting poor prognosis. She may recover some synthetic function off alcohol, continue to monitor. Per ascites developing over the past 2 months, has likely had ongoing alcohol consumption. Report of low grade fever overnight. No fever currently, no abdominal pain to suggest SBP. Alternative explanation for mental status. Will d/w surgery. (3) Hypomagnesemia: Status: Acute Assessment and plan: monitor and continue to supplument, given another 4g today. also replacing potassium in fluids (4) Hepatic encephalopathy: Status: Acute Assessment and plan: Ammonia only mildly elevated, but I am concerned that may be contributing to mental status. She isn't able to take po, will write for enemas. (5) Alcohol dependence: Status: Acute Assessment and plan: As above, discuss treatment supports when MS improves. (6) DVT prophylaxis: Status: Acute Assessment and plan: Will give lovenox as cirrhosis is pro-coagulant state despite low platelets and elevated INR. Subjective Subjective Interval history since last seen: Patient is not responding to questioning, mumbles concerns about her mother who is moving to a SNF. Per she was alert and oriented prior to her seizure-like event. He has never seen her like this. He states he has caught her sneaking alcohol on 2-3 occaisions. Exam Narrative Exam Narrative: 147/81, 102, 16, 36.9. HEENT blood per nares, and contusion of tip of tongue. Neck supple; lungs clear; heart RRR; abdomen distended, some guarding, no hepatomegaly by palpation or percussion, no splenomegaly; pelvic/rectal deferred; extremities w/o edema; neuro Ox3, moves all 4s, tremulous, no asterixis Objective Objective Clinical Data: Abnormal lab results 05/27/19 05/28/19 05/28/19 Range/Units 17:39 06:32 06:32 RBC 3.22 L (4.00-5.20) m/cumm Hgb 11.5 L (12.0-15.5) g/dL Hct 33.6 L (36.0-46.0) % MCV 104.3 H (80-95) fL MCH 35.7 H (27.0-33.0) pg RDW 15.9 H (11.7-14.6) % Plt Count 74 L (130-400) x1000/uL MPV 11.3 H (8.0-11.0) fL PT (9.3-11.0) sec INR (0.9-1.1) Potassium 3.3 L (3.5-5.1) mmol/L Chloride 108 H (98-107) mmol/L Calcium 8.2 L (8.5-10.1) mg/dL Magnesium 1.4 L (1.8-2.4) mg/dL Total Bilirubin 5.6 H (0.2-1.0) mg/dL AST 78 H (15-37) U/L Ammonia 62 H (11-32) umol/L 05/28/19 05/28/19 Range/Units 06:32 06:32 RBC (4.00-5.20) m/cumm Hgb (12.0-15.5) g/dL Hct (36.0-46.0) % MCV (80-95) fL MCH (27.0-33.0) pg RDW (11.7-14.6) % Plt Count (130-400) x1000/uL MPV (8.0-11.0) fL PT 14.2 H (9.3-11.0) sec INR 1.4 H (0.9-1.1) Potassium (3.5-5.1) mmol/L Chloride (98-107) mmol/L Calcium (8.5-10.1) mg/dL Magnesium (1.8-2.4) mg/dL Total Bilirubin (0.2-1.0) mg/dL AST (15-37) U/L Ammonia 73 H (11-32) umol/L Vital Signs Temperature 37.4 C 05/28/19 03:45 Temperature Source Temporal Artery Scan 05/27/19 19:51 Pulse 80 05/28/19 08:01 Pulse 80 05/28/19 08:01 Respiratory Rate 21 05/28/19 11:31 Respiratory Effort Non-Labored 05/28/19 11:31 Respiratory Depth Normal 05/28/19 11:31 Respiratory Pattern Normal 05/28/19 11:31 Blood Pressure 115/53 L 05/28/19 08:01 Blood Pressure Mean 68 05/28/19 08:01 Blood Pressure Position Supine 05/27/19 09:55 Pulse Oximetry 96 05/28/19 11:32 Oxygen Delivery Method Room Air 05/28/19 11:32 Oxygen Flow Rate 0 05/28/19 11:32 Pain Level 0 05/28/19 03:45 Comment 05/28/19 01:05 Intake & Output 05/27/19 05/28/19 05/28/19 23:59 11:59 23:59 Intake Total 2290 / 2450 120 / 120 Output Total 450 / 450 Balance 1840 / 2000 120 / 120 Weight 55.7 kg Intake: IV 2050 / 2210 Oral 240 / 240 120 / 120 Output: Urine 450 / 450 Other: Urine Color Dark Moni Dark Moni Brown Urine Appearance Clear Hematuria Urine Odor Strong Strong Comment pt voided last to commode. moderate amt of urine voided into brief Stool Size Small Stool Characteristics Soft Brown Voiding Methods Bedside Commode Diaper Incontinent Laboratory Results WBC 6.00 k/cumm (4.4-10.8) 05/28/19 06:32 RBC 3.22 m/cumm (4.00-5.20) L 05/28/19 06:32 Hgb 11.5 g/dL (12.0-15.5) L 05/28/19 06:32 Hct 33.6 % (36.0-46.0) L 05/28/19 06:32 MCV 104.3 fL (80-95) H 05/28/19 06:32 MCH 35.7 pg (27.0-33.0) H 05/28/19 06:32 MCHC 34.2 g/dL (32.0-36.0) 05/28/19 06:32 RDW 15.9 % (11.7-14.6) H 05/28/19 06:32 Plt Count 74 x1000/uL (130-400) L 05/28/19 06:32 MPV 11.3 fL (8.0-11.0) H 05/28/19 06:32 Immature Gran % 0.0 05/27/19 04:15 Neutrophils % 47.0 05/27/19 04:15 Lymphocytes % 21.0 05/27/19 04:15 Monocytes % 31.0 05/27/19 04:15 Eosinophils % 1.0 05/27/19 04:15 Basophils % 0.0 05/27/19 04:15 Absolute Neutrophils 3.57 k/cumm (1.2-6.7) 05/27/19 04:15 Absolute Lymphocytes 1.59 k/cumm (1.2-3.4) 05/27/19 04:15 Absolute Monocytes 2.35 k/cumm (0.11-0.7) H 05/27/19 04:15 Absolute Eosinophils 0.08 k/cumm (0.0-0.7) 05/27/19 04:15 Absolute Basophils 0.00 k/cumm (0.0-0.2) 05/27/19 04:15 Differential Comment Manual differential 05/27/19 04:15 RBC Morphology See below 05/27/19 04:15 Macrocytosis 2+ 05/27/19 04:15 PT 14.2 sec (9.3-11.0) H 05/28/19 06:32 INR 1.4 (0.9-1.1) H 05/28/19 06:32 APTT 27.8 sec (21.0-31.4) 05/27/19 04:15 Sodium 141 mmol/L (136-145) 05/28/19 06:32 Potassium 3.3 mmol/L (3.5-5.1) L 05/28/19 06:32 Chloride 108 mmol/L (98-107) H 05/28/19 06:32 Carbon Dioxide 25.2 mmol/L (21.0-32.0) 05/28/19 06:32 Anion Gap 7.8 mmol/L (3-11) 05/28/19 06:32 BUN 11 mg/dL (7-18) 05/28/19 06:32 Creatinine 0.64 mg/dL (0.55-1.02) 05/28/19 06:32 Estimated GFR/1.73 m2 >= 60.00 (mL/min/1.73m2) 05/28/19 06:32 Glucose 93 mg/dL (74-106) 05/28/19 06:32 Calcium 8.2 mg/dL (8.5-10.1) L 05/28/19 06:32 Magnesium 1.4 mg/dL (1.8-2.4) L 05/28/19 06:32 Total Bilirubin 5.6 mg/dL (0.2-1.0) H 05/28/19 06:32 Conjugated Bilirubin 4.58 mg/dL (0.00-0.20) H 05/27/19 04:15 AST 78 U/L (15-37) H 05/28/19 06:32 ALT 26 U/L (14-59) 05/28/19 06:32 Alkaline Phosphatase 136 U/L (46-116) H 05/27/19 04:15 Ammonia 73 umol/L (11-32) H 05/28/19 06:32 Troponin I < 0.05 ng/Ml (<0.06) 05/27/19 04:15 NT-Pro-B Natriuret Pep 890 pg/mL (<300) 05/27/19 04:15 Total Protein 7.0 g/dL (6.4-8.2) 05/27/19 04:15 Albumin 2.5 g/dL (3.4-5.0) L 05/27/19 04:15 Ethyl Alcohol < 3.0 mg/dL (<3) 05/27/19 04:15
--- NOTE | 2019-05-28 17:00 | SCONE_ITS ---
Date of service: 05/28/19 Time of Service: 17:00 Assessment and Plan Assessment and plan (1) Fever of undetermined origin: Status: Acute Assessment and plan: A\\ 69 year old female with hx of alcohol abuse and ascitis presented to ER after fall. She was confused and had a seizure. Today patient has had fevers without known source. I was asked to do a paracenthesis to get fluid for cultures. Patient unable to consent herself. Called and spoke to patients and got consent over the phone. P\\ Parasenthesis with US Risks, benefits, complications of the procedure were reviewed with her . Complications include but are not limited to bleeding, pain, infection, injury to his bowel. Questions were entertained and answered to his satisfaction and he wished to proceed. No guarantees were given or implied. History of Present Illness History of Present Illness Chief Complaint: alcoholic cirrhosis, fevers of unknown origin Narrative: 69 female with h/o alcohol abuse. In usual state of health earlier today, then heard a crash, found patient on floor unresponsive, lasting 10 minutes. Came to , combative, confusion resolved by time of arrival in ER yesterday 05/27/19. In ER findings of note for scalp hematoma, bilirubin of 7.1 (most recent prior 3.8), Mg 1.2, INR 1.[address] head and spine (except for scalp hematoma). patient noted to be very unsteady on feet, admitted for further management. I was called to evaluate patient for a Paracenthesis for fevers of unknown origin. Patient is not able to give me a history. History from chart Consults Consult date: 05/28/19 Requesting physician: Bishop Sainz Review of Systems Unobtainable due to mental status Constitutional Constitutional: Reports fever(s) [facility] Social History (Updated 05/28/19 @ 17:05 by Chanel Cuevas MD) Smoking/Tobacco Use Status: Former Tobacco Use Alcohol Intake: current Alcohol Intake frequency: 3 or more drinks per day Drug use: Never Substance use type: does not use Do you feel safe at home: Yes Do you feel safe in your relationship?: Yes Exam Const General: ill appearing Orientation: alert and confused HENMT Head: hematoma Eyes Sclera: scleral abnormality bilaterally GI Inspection: caput medusae present Palpation: soft, hepatomegaly and ascites Results Last Vital Signs Temp 101.3 F H 05/28/19 15:45 Pulse 93 H 05/28/19 15:45 Resp 21 05/28/19 15:45 BP 134/67 05/28/19 15:45 Pulse Ox 95 05/28/19 15:45 Labs Result diagrams: 05/28/19 06:32 05/28/19 06:32 Labs: Laboratory Results - last 24 hr 05/27/19 05/28/19 05/28/19 17:39 06:32 06:32 WBC 6.00 RBC 3.22 L Hgb 11.5 L Hct 33.6 L MCV 104.3 H MCH 35.7 H MCHC 34.2 RDW 15.9 H Plt Count 74 L MPV 11.3 H PT INR Sodium 141 Potassium 3.3 L Chloride 108 H Carbon Dioxide 25.2 Anion Gap 7.8 BUN 11 Creatinine 0.64 Estimated GFR/1.73 m2 >= 60.00 Glucose 93 Calcium 8.2 L Magnesium 1.4 L Total Bilirubin 5.6 H AST 78 H ALT 26 Ammonia 62 H 05/28/19 05/28/19 06:32 06:32 WBC RBC Hgb Hct MCV MCH MCHC RDW Plt Count MPV PT 14.2 H INR 1.4 H Sodium Potassium Chloride Carbon Dioxide Anion Gap BUN Creatinine Estimated GFR/1.73 m2 Glucose Calcium Magnesium Total Bilirubin AST ALT Ammonia 73 H Procedures Paracentesis Time out performed: Yes Indication: possible spontaneous bacterial peritonitis Procedure: diagnostic paracentesis Location: LLQ Local anesthetic used: lidocaine 1% Amount of anesthesia used (ml): 5 Bedside ultrasound used: yes, Ascites confirmed and location marked Preparation: sterile prep and drape Amount of fluid obtained (ml): 20 Fluid: clear Post procedure exam: normal BP, normal HR and normal SpO2 Patient tolerated procedure: well Complications: none
--- NOTE | 2019-05-28 17:13 | NUR.NOTE ---
Nursing Note: At approx 1655 MD Cuevas in to perform paracentesis on patient. Consent obtained from over the phone as patient is not oriented and unable to consent for self at this time. Procedure performed without incident, fluid obtained and sent to the lab for testing. Patient tolerated procedure well.
[2019-05-28] MEDS: POTASSIUM CHLORIDE/D5-0.45NACL 1,000 ML 100 MEQ IV (17:58)
[2019-05-28] MEDS: PIPERACILLIN/TAZO 3.375 GM in Normal Saline 50 ML IVPB (18:06)
[2019-05-28] MEDS: Enoxaparin 40 MG/0.4 ML SYR SC (20:42)
[2019-05-28] MEDS: Lactulose 20 GM/30 ML CUP 200 GM PR (20:42)
[2019-05-29] VITALS (46 sets, daily range): BP systolic 105–161; BP diastolic 51–94; PULSE 81–126; RESP 13–32; TEMP 38–39.2; O2SAT 91–97
[2019-05-29] MEDS: PIPERACILLIN/TAZO 3.375 GM in Normal Saline 50 ML IVPB ×4 (00:36→17:14)
[2019-05-29] MEDS: LORazepam 2 MG/ML VIAL IVP ×2 (04:12→10:39)
[2019-05-29 06:05] LABS: *AMPHETAMINES SCREEN URINE Negative (Negative); *BARBITURATES SCREEN URINE Negative (Negative); *BENZODIAZEPINES SCREEN URINE Negative (Negative); Cannabinoids THC Negative (Negative); Cocaine Screen,Urine Negative (Negative); METHADONE URINE SCREEN Negative (Negative); OPIATES URINE SCREEN Negative (Negative)
[2019-05-29 06:10] LABS: Tricyclic Antidepressants Negative (Negative)
[2019-05-29 06:11] LABS: Clarity Sl Cloudy (Clear); Leukocyte Esterase Negative (Negative); Nitrite Negative (Negative); pH 7.5 (5-8)
[2019-05-29 06:12] LABS: Bilirubin Moderate (Negative); Glucose Negative (Negative); Ketones Negative (Negative); Urobilinogen >=8.0 EU/dL (Up TO 0.2)
[2019-05-29 06:13] LABS: Blood Small (Negative)
[2019-05-29 06:15] LABS: Epithelial Cells Moderate HPF (Negative); Other Cells Negative (Negative)
[2019-05-29 06:16] LABS: Bacteria Few HPF (Negative); C & S Indicated? No; Casts Negative LPF (Negative); Crystals Negative HPF (Negative); Mucus Negative (Negative)
[2019-05-29 07:20] LABS: Abs Immature Grans 0.03 k/cumm (0.0-0.09); HCT 34.9 % (36.0-46.0); Mean Corp. HGB Concentration 34.4 g/dL (32.0-36.0); Mean Corpuscular Hemoglobin 35.8 pg (27.0-33.0); Mean Corpuscular Volume 104.2 fL (80-95); Mean Platelet Volume 11.6 fL (8.0-11.0); RBC 3.35 m/cumm (4.00-5.20); RBC Distribution Width 16.1 % (11.7-14.6); White Blood Cell Count 6.49 k/cumm (4.4-10.8)
[2019-05-29 07:33] LABS: ALT 26 U/L (14-59); AST 77 U/L (15-37); Albumin 2.3 g/dL (3.4-5.0); Alkaline Phosphatase 117 U/L (46-116); Anion Gap 11.3 mmol/L (3-11); BUN 9 mg/dL (7-18); Bilirubin, Total 6.5 mg/dL (0.2-1.0); CO2 21.7 mmol/L (21.0-32.0); CREATININE 0.78 mg/dL (0.55-1.02); Chloride 106 mmol/L (98-107); Glucose 108 mg/dL (74-106); Magnesium 1.6 mg/dL (1.8-2.4); Potassium 3.9 mmol/L (3.5-5.1); Sodium 139 mmol/L (136-145); Total Protein 6.5 g/dL (6.4-8.2)
[2019-05-29 07:38] LABS: Absolute Lymphocyte Count 0.32 k/cumm (1.2-3.4); Absolute Monocyte Count 1.69 k/cumm (0.11-0.7); Absolute Neutrophil Count 4.48 k/cumm (1.2-6.7); Atypical Lymphocytes % 3; Platelet Count 85 x1000/uL (130-400)
[2019-05-29 07:40] LABS: Diff Comment Manual Differential; Macrocytosis 2+; Nucleated RBC 1 /100WBC; Polychromasia Present; Target Cells 2+
[2019-05-29] MEDS: POTASSIUM CHLORIDE/D5-0.45NACL 1,000 ML 100 MEQ IV (08:34)
[2019-05-29] MEDS: MAGNESIUM SULFATE 2 GM/50 ML BAG IVPB (10:40)
[2019-05-29 11:10] LABS: Glucose (CSF) 73 mg/dL (40-70); Total Protein (CSF) 31 mg/dL (15-45)
--- NOTE | 2019-05-29 11:29 | W.ED.PROC ---
Procedures Lumbar Puncture Time Out Performed: Yes Patient Position: right lateral decubitus Skin Prep: Povidone-Iodine 1% Local Anesthetic: Lidocaine 1% Amount of anesthesia used (mL): 6 Spinal Needle Gauge: 20G Interspace Used: L4-L5 Fluid Initially Obtained: clear Additional Comments: minimal bleeding, approximately 5cc.
[2019-05-29 11:42] LABS: Clarity Clear; RBC 40 /mm3 (0-5); Tube # 5; Xanthochromia Absent
[2019-05-29 11:44] LABS: RBC Tube#1 CSF 1238 /mm3 (0-5); WBC 2 /mm3 (0-5)
--- NOTE | 2019-05-29 12:13 | DI.RAD_ITS ---
EXAM: XR PORTABLE CHEST AP INDICATION: fever. COMPARISON: XR CHEST 2V PA LATERAL from 02/11/2019 TECHNIQUE: 2D digital imaging was performed. FINDINGS: Lungs are not well inflated. Leads overlie the chest. There is mild respiratory motion. There is vascular prominence, peribronchial thickening and increased interstitial markings suspicious for pulm onary edema. There are asymmetric increased densities at the right lung base which could represent a symmetric edema, small effusion versus pneumonia. IMPRESSION: Findings consistent with CHF. Superimposed pneumonia is also a possibility.
--- NOTE | 2019-05-29 12:23 | DI.VRAD_ITS ---
PROCEDURE INFORMATION: Exam: XR Chest, 1 View Exam date and time: 05/29/2019 11:35 AM Age: 69 years old Clinical history: Other: Fever TECHNIQUE: Imaging protocol: XR of the chest Views: 1 view. COMPARISON: CR XR CHEST 2V PA LATERAL 02/11/2019 2:16 PM FINDINGS: Lungs: Markedly worsened appearance of the lungs compared to 02/11/19; streaky opacities in both lungs may represent pulmonary edema. Superimposed pneumonia is difficult to exclude. Pleural space: Small right pleural effusion is noted. No pneumothorax is seen Heart/Mediastinum: The cardiac silhouette appears normal in size Bones/joints: Visualized bones are grossly intact IMPRESSION: New onset pulmonary edema and small right pleural effusion Superimposed pneumonia is difficult to exclude Dictated and Authenticated by: Modesto Paz MD. Ordering:TRISH Alas MD
--- NOTE | 2019-05-29 13:10 | W.PM.PROGNOT ---
Date of Service Date of service: 05/29/19 Time of Service: 13:11 Assessment and Plan Assessment and plan (1) Fever of undetermined origin: Status: Acute Assessment and plan: I am concerned with ongoing fever that has developed since admission, a/w depressed mental status. Paracentesis not c/w SBP, LP not c/w CSF infection. U/a not c/w UTI. CT abd/pelvis on admission did not suggest infection. CT chest did suggest possible pneumonia. Given this and risk of aspiration, tachypnea, continued on Pip/tazo to cover aspiration pneumonia. Repeat CXR today difficult to assess for pneumonia, but did suggest CHF, see below. (2) Alcohol withdrawal: Status: Acute Assessment and plan: No longer scoring significantly on CIWA, may have residual lorazepam effect, especially with liver disease, but I'm not sure this fully explains depressed mental status. (3) Alcoholic cirrhosis: Status: Acute Assessment and plan: MELD score 31 on admission, Child Frances Medina score 12, both suggesting poor prognosis. Liver function roughly stable, monitor periodically. (4) Hypomagnesemia: Status: Acute Assessment and plan: monitor and continue to supplument, given another 2g today. also replacing potassium in fluids, improved. (5) Hepatic encephalopathy: Status: Acute Assessment and plan: Ammonia only mildly elevated, but I am still concerned that may be contributing to mental status. She isn't able to take po, enemas haven't been working. Will use NGT. (6) CHF (congestive heart failure): Status: Chronic Assessment and plan: No h/o CHF but at risk for dilated cardiomyopathy with alcohol use disorder. Get echo when available tomorrow. For now, try furosemide and stop IV fluids for now. (7) DVT prophylaxis: Status: Acute Assessment and plan: Will give lovenox as cirrhosis is pro-coagulant state despite low platelets and slightly elevated INR, as long as not actively bleeding. Subjective Subjective Patient reports: denies diarrhea and vomiting Interval history since last seen: Pt not responsive. 24 hr: Surgery performed paracentesis, cell count not c/w SBP Pip/tazo started at time of paracentesis Continued febrile overnight, depressed mental status. no seizure events Attempted lactulose enema but not retaining Dr. Vyas from ED performed LP this morning per request Repeat CXR c/w CHF, cannot rule out pneumonia Exam Narrative Exam Narrative: GEN: Not responsive to voice, withdrawls from pain. HEENT: no new bleeding/bruising. +icterus, eyelids crusty, pupils 3mm and reactive alla. MMM. Neck supple, no masses/LAD lungs: CTAB. tachypneic but not coughing. Heart: RRR, no murmurs/gallops. abdomen: distended with shifting dullness, fluid wave. not tender, no palpable organomegaly. +caput medusa. extremities no cyanosis or edema; neuro: moves all 4s but not to command. not tremulous, no asterixis Objective Objective Clinical Data: Abnormal lab results 05/29/19 05/29/19 05/29/19 Range/Units 04:50 06:21 06:21 RBC 3.35 L (4.00-5.20) m/cumm Hct 34.9 L (36.0-46.0) % MCV 104.2 H (80-95) fL MCH 35.8 H (27.0-33.0) pg RDW 16.1 H (11.7-14.6) % Plt Count 85 L (130-400) x1000/uL MPV 11.6 H (8.0-11.0) fL Absolute Lymphocytes 0.32 L (1.2-3.4) k/cumm Absolute Monocytes 1.69 H (0.11-0.7) k/cumm Anion Gap 11.3 H (3-11) mmol/L Glucose 108 H (74-106) mg/dL Calcium 8.0 L (8.5-10.1) mg/dL Magnesium 1.6 L (1.8-2.4) mg/dL Total Bilirubin 6.5 H (0.2-1.0) mg/dL AST 77 H (15-37) U/L Alkaline Phosphatase 117 H (46-116) U/L Albumin 2.3 L (3.4-5.0) g/dL Urine Blood Small H (Negative) Urine Bilirubin Moderate H (Negative) Urine RBC 10-20 H (0-2) HPF CSF RBC (0-5) /mm3 CSF RBC (1) (0-5) /mm3 CSF Glucose (40-70) mg/dL 05/29/19 05/29/19 Range/Units 10:15 10:15 RBC (4.00-5.20) m/cumm Hct (36.0-46.0) % MCV (80-95) fL MCH (27.0-33.0) pg RDW (11.7-14.6) % Plt Count (130-400) x1000/uL MPV (8.0-11.0) fL Absolute Lymphocytes (1.2-3.4) k/cumm Absolute Monocytes (0.11-0.7) k/cumm Anion Gap (3-11) mmol/L Glucose (74-106) mg/dL Calcium (8.5-10.1) mg/dL Magnesium (1.8-2.4) mg/dL Total Bilirubin (0.2-1.0) mg/dL AST (15-37) U/L Alkaline Phosphatase (46-116) U/L Albumin (3.4-5.0) g/dL Urine Blood (Negative) Urine Bilirubin (Negative) Urine RBC (0-2) HPF CSF RBC 40 H (0-5) /mm3 CSF RBC (1) 1238 H (0-5) /mm3 CSF Glucose 73 H (40-70) mg/dL Vital Signs Temperature 38.2 C H 05/29/19 11:01 Temperature Source Temporal Artery Scan 05/29/19 11:01 Pulse 111 H 05/29/19 10:00 Pulse 112 H 05/29/19 10:00 Respiratory Rate 27 H 05/29/19 10:00 Respiratory Effort 05/29/19 08:30 Respiratory Depth Normal 05/29/19 08:30 Respiratory Pattern Normal 05/29/19 08:30 Blood Pressure 122/94 H 05/29/19 10:00 Blood Pressure Mean 102 05/29/19 10:00 Blood Pressure Position Left Lateral 05/29/19 08:30 Pulse Oximetry 97 05/29/19 10:00 Oxygen Delivery Method Room Air 05/29/19 08:30 Oxygen Flow Rate 0 05/29/19 08:30 Pain Level 0 05/29/19 08:30 Comment 05/28/19 01:05 Intake & Output 05/28/19 05/29/19 05/29/19 23:59 11:59 23:59 Intake Total 50 / 170 1150 / 1150 Output Total 585 / 585 Balance 50 / 170 565 / 565 Weight 55.7 kg Intake: IV 50 / 50 1150 / 1150 Output: Urine 585 / 585 Other: Urine Color Dark Moni Dark Moni Urine Appearance Clear Urine Odor Strong Strong Comment inc of urine pollard catheter placed 0500 Stool Occult Blood Positive Negative Stool Size Small Small Stool Characteristics Soft Liquid Voiding Methods Incontinent Incontinent Laboratory Results WBC 6.49 k/cumm (4.4-10.8) 05/29/19 06:21 RBC 3.35 m/cumm (4.00-5.20) L 05/29/19 06:21 Hgb 12.0 g/dL (12.0-15.5) 05/29/19 06:21 Hct 34.9 % (36.0-46.0) L 05/29/19 06:21 MCV 104.2 fL (80-95) H 05/29/19 06:21 MCH 35.8 pg (27.0-33.0) H 05/29/19 06:21 MCHC 34.4 g/dL (32.0-36.0) 05/29/19 06:21 RDW 16.1 % (11.7-14.6) H 05/29/19 06:21 Plt Count 85 x1000/uL (130-400) L 05/29/19 06:21 MPV 11.6 fL (8.0-11.0) H 05/29/19 06:21 Immature Gran % 0.0 05/29/19 06:21 Neutrophils % 69.0 05/29/19 06:21 Lymphocytes % 2.0 05/29/19 06:21 Atypical Lymphs % 3 05/29/19 06:21 Monocytes % 26.0 05/29/19 06:21 Eosinophils % 0.0 05/29/19 06:21 Basophils % 0.0 05/29/19 06:21 Absolute Neutrophils 4.48 k/cumm (1.2-6.7) 05/29/19 06:21 Absolute Lymphocytes 0.32 k/cumm (1.2-3.4) L 05/29/19 06:21 Absolute Monocytes 1.69 k/cumm (0.11-0.7) H 05/29/19 06:21 Absolute Eosinophils 0.00 k/cumm (0.0-0.7) 05/29/19 06:21 Absolute Basophils 0.00 k/cumm (0.0-0.2) 05/29/19 06:21 Nucleated RBCs 1 /100WBC 05/29/19 06:21 Differential Comment Manual differential 05/29/19 06:21 RBC Morphology See below 05/29/19 06:21 Polychromasia Present 05/29/19 06:21 Xanthochromia Absent 05/29/19 10:15 Macrocytosis 2+ 05/29/19 06:21 Target Cells 2+ 05/29/19 06:21 PT 14.2 sec (9.3-11.0) H 05/28/19 06:32 INR 1.4 (0.9-1.1) H 05/28/19 06:32 APTT 27.8 sec (21.0-31.4) 05/27/19 04:15 Sodium 139 mmol/L (136-145) 05/29/19 06:21 Potassium 3.9 mmol/L (3.5-5.1) 05/29/19 06:21 Chloride 106 mmol/L (98-107) 05/29/19 06:21 Carbon Dioxide 21.7 mmol/L (21.0-32.0) 05/29/19 06:21 Anion Gap 11.3 mmol/L (3-11) H 05/29/19 06:21 BUN 9 mg/dL (7-18) 05/29/19 06:21 Creatinine 0.78 mg/dL (0.55-1.02) 05/29/19 06:21 Estimated GFR/1.73 m2 >= 60.00 (mL/min/1.73m2) 05/29/19 06:21 Glucose 108 mg/dL (74-106) H 05/29/19 06:21 Calcium 8.0 mg/dL (8.5-10.1) L 05/29/19 06:21 Magnesium 1.6 mg/dL (1.8-2.4) L 05/29/19 06:21 Total Bilirubin 6.5 mg/dL (0.2-1.0) H 05/29/19 06:21 Conjugated Bilirubin 4.58 mg/dL (0.00-0.20) H 05/27/19 04:15 AST 77 U/L (15-37) H 05/29/19 06:21 ALT 26 U/L (14-59) 05/29/19 06:21 Alkaline Phosphatase 117 U/L (46-116) H 05/29/19 06:21 Ammonia 73 umol/L (11-32) H 05/28/19 06:32 Troponin I < 0.05 ng/Ml (<0.06) 05/27/19 04:15 NT-Pro-B Natriuret Pep 890 pg/mL (<300) 05/27/19 04:15 Total Protein 6.5 g/dL (6.4-8.2) 05/29/19 06:21 Albumin 2.3 g/dL (3.4-5.0) L 05/29/19 06:21 Urine Color Yellow (Yellow) 05/29/19 04:50 Urine Clarity Sl cloudy (Clear) 05/29/19 04:50 Urine pH 7.5 (5-8) 05/29/19 04:50 Ur Specific Sebastian 1.020 (1.005-1.025) 05/29/19 04:50 Urine Protein Negative mg/dL (Negative) 05/29/19 04:50 Urine Ketones Negative mg/dL (Negative) 05/29/19 04:50 Urine Blood Small (Negative) H 05/29/19 04:50 Urine Nitrite Negative (Negative) 05/29/19 04:50 Urine Bilirubin Moderate (Negative) H 05/29/19 04:50 Urine Urobilinogen >=8.0 EU/dL (Up TO 0.2) 05/29/19 04:50 Ur Leukocyte Esterase Negative (Negative) 05/29/19 04:50 Urine RBC 10-20 HPF (0-2) H 05/29/19 04:50 Urine WBC 3-5 HPF (0-5) 05/29/19 04:50 Ur Epithelial Cells Moderate HPF (Negative) 05/29/19 04:50 Urine Crystals Negative HPF (Negative) 05/29/19 04:50 Urine Bacteria Few HPF (Negative) 05/29/19 04:50 Urine Casts Negative LPF (Negative) 05/29/19 04:50 Urine Mucus Negative (Negative) 05/29/19 04:50 Urine Other Negative (Negative) 05/29/19 04:50 Ur Culture Indicated? No 05/29/19 04:50 Urine Glucose Negative mg/dL (Negative) 05/29/19 04:50 CSF Tube Number 5 05/29/19 10:15 CSF Color Colorless 05/29/19 10:15 CSF Clarity Clear 05/29/19 10:15 CSF WBC 2 /mm3 (0-5) 05/29/19 10:15 CSF RBC 40 /mm3 (0-5) H 05/29/19 10:15 CSF RBC (1) 1238 /mm3 (0-5) H 05/29/19 10:15 CSF Diff Comment Not Applicable 05/29/19 10:15 CSF Glucose 73 mg/dL (40-70) H 05/29/19 10:15 CSF Total Protein 31 mg/dL (15-45) 05/29/19 10:15 Urine Opiates Screen Negative (Negative) 05/29/19 04:50 Urine Methadone Screen Negative (Negative) 05/29/19 04:50 Ur Barbiturates Screen Negative (Negative) 05/29/19 04:50 Ur Tricyclics Screen Negative (Negative) 05/29/19 04:50 Ur Amphetamines Screen Negative (Negative) 05/29/19 04:50 U Benzodiazepines Scrn Negative (Negative) 05/29/19 04:50 Urine Cocaine Screen Negative (Negative) 05/29/19 04:50 Ur THC Screen Negative (Negative) 05/29/19 04:50 Ethyl Alcohol < 3.0 mg/dL (<3) 05/27/19 04:15
[2019-05-29 13:25] LABS: Ammonia 66 umol/L (11-32)
[2019-05-29 14:02] LABS: Lactate 1.9 mmol/L (0.6-1.4)
[2019-05-29] MEDS: Lactulose 20 GM/30 ML CUP 30 GM NG ×2 (14:03→21:44)
[2019-05-29] MEDS: Normal Saline Flush 10 ML SYR IVP (14:04)
[2019-05-29] MEDS: Furosemide 20 MG/2 ML VIAL IVP (14:11)
[2019-05-29 14:25] LABS: Procalcitonin 0.3 ng/mL
--- NOTE | 2019-05-29 15:18 | PDOC.CMPRO ---
Care Management Progress Note S/O: Meredith remains in the ICU and continues to be unable to engage with this specifications writer at this time. Lumbar puncture performed today with no acute findings, Meredith remains febrile and unresponsive. CM continues to follow. A: 69 year old female admitted to [facility] 05/27/19 for [id number] P: Undetermined discharge plan at this time. CM will continue to follow and support discharge planning considerations and support Meredith's , Tyree, who is struggling with her current presentation with unknown origin at this time. Per MD: MELD score 31 on admission, Child Frances Medina score 12, both suggesting poor prognosis. Liver function roughly stable, monitor periodically. Meredith will have an ECHO tomorrow (05/30/19) due to concern for new CHF.
--- NOTE | 2019-05-29 20:46 | DI.RAD_ITS ---
EXAM: XR PORTABLE CHEST AP POST LINE INDICATION: confirm placement for NG tube. COMPARISON: XR CHEST 2V PA LATERAL from 02/11/2019 XR PORTABLE CHEST AP from 05/29/2019 XR PORTABLE CHEST AP from 05/29/2019 TECHNIQUE: 2D digital imaging was performed. FINDINGS: The heart is enlarged. A nasogastric tube is a pin in place which projects below the diaphragm. The re are increased interstitial markings, not significantly changed from the most recent exam, consiste nt with pulmonary edema. IMPRESSION: Stable cardiomegaly and CHF.
--- NOTE | 2019-05-29 21:12 | DI.VRAD_ITS ---
PROCEDURE INFORMATION: Exam: XR Chest, 1 View Exam date and time: 05/29/2019 9:06 PM Age: 69 years old Clinical history: Device placement; Patient HX: Ng tube placement confirmation TECHNIQUE: Imaging protocol: XR of the chest Views: 1 view. COMPARISON: XR PORTABLE CHEST AP 29/05/2019 11:57 FINDINGS: Tubes, catheters and devices: Nasogastric tube in place with the tip below the left hemidiaphragm. The catheter appears to be coiled back on itself. Lungs: Persistent bilateral infiltrates. Pleural space: Persistent bilateral pleural effusions. Heart/Mediastinum: Cardiomegaly. Bones/joints: Unremarkable for patient's age. IMPRESSION: 1. Interval placement of a nasogastric tube which is coiled on itself. The tip is below the left hemidiaphragm. 2. Bilateral airspace disease. Bilateral pleural effusions. Dictated and Authenticated by: Britni Faulkner MD. Ordering:NANI Clements MD
[2019-05-30] VITALS (47 sets, daily range): BP systolic 96–143; BP diastolic 41–75; PULSE 73–92; RESP 13–27; TEMP 37–38.9; O2SAT 93–98
[2019-05-30] MEDS: PIPERACILLIN/TAZO 3.375 GM in Normal Saline 50 ML IVPB ×4 (00:05→18:16)
[2019-05-30] MEDS: Normal Saline Flush 10 ML SYR IVP ×2 (00:12→21:08)
[2019-05-30 06:43] LABS: INR 1.4 (0.9-1.1); Prothrombin Time 14.2 sec (9.3-11.0)
[2019-05-30 06:45] LABS: Magnesium 1.6 mg/dL (1.8-2.4)
[2019-05-30 06:48] LABS: Ammonia 41 umol/L (11-32)
[2019-05-30 06:51] LABS: Anion Gap 11.1 mmol/L (3-11); BUN 11 mg/dL (7-18); CO2 20.9 mmol/L (21.0-32.0); CREATININE 0.86 mg/dL (0.55-1.02); Chloride 108 mmol/L (98-107); Glucose 106 mg/dL (74-106); Potassium 3.4 mmol/L (3.5-5.1); Sodium 140 mmol/L (136-145)
--- NOTE | 2019-05-30 07:47 | DI.US_ITS ---
APPROVED REPORT EXAM: Comprehensive 2D, Doppler, and color-flow Echocardiogram Patient Location: In-Patient [employer]: Delia Vieira RDCS (AE) Rhythm: NSR Indications: alcoholic, cirrhosis, new CHF Conclusion Left Ventricle : The left ventricle is normal. The posterior wall thickness is mildly increased. The septum is normal. Left ventricular systolic function is normal. There is normal LV segmental wall mot ion. LVEF is estimated to be 60-65%. The left ventricular diastolic function is normal. Right Ventricle : The right ventricle is normal size. The right ventricular systolic function is norm al. Atria : Left atrium is mildly dilated. Right atrium is mildly dilated. Aortic Valve : Aortic valve is trileaflet. No aortic regurgitation is present. There is no aortic elizabeth vular stenosis. Mitral Valve : Mitral valve leaflets are mildly thickened and myxomatous. Mild mitral annular calcifi cation. Mild mitral regurgitation. No evidence of mitral valve stenosis. Tricuspid Valve : Tricuspid valve leaflets are thickened mildly but open well. Mild to moderate tric uspid regurgitation. Great Vessels : The IVC was not visualized. Estimated RVSP is 28 mmHg plus RA pressure. Pericardium : trivial circumferential pericardial effusion was present. There is no prior echocardiogram available for comparison. Wall motion Left Ventricle The left ventricle is normal. Left ventricular systolic function is normal. The posterior wall thickn ess is mildly increased. The septum is normal. There is normal LV segmental wall motion. The left thomas tricular diastolic function is normal. LVEF is estimated to be 60-65%. Right Ventricle The right ventricle is normal size. The right ventricular systolic function is normal. Atria Left atrium is mildly dilated. Right atrium is mildly dilated. Aortic Valve Aortic valve is trileaflet. There is no aortic valvular stenosis. No aortic regurgitation is present. Mitral Valve Mitral valve leaflets are mildly thickened and myxomatous. Mild mitral annular calcification. No evid ence of mitral valve stenosis. Mild mitral regurgitation. Tricuspid Valve Tricuspid valve leaflets are thickened mildly but open well. Mild to moderate tricuspid regurgitation . Pulmonic Valve Pulmonic valve is not well visualized. Great Vessels The aortic root size is normal. The ascending aorta size is normal. The IVC was not visualized. Estim ated RVSP is 28 mmHg plus RA pressure. Pericardium trivial circumferential pericardial effusion was present. 2D Dimensions IVSd 0.80 cm F: 0.6-1.0 LV EDV A2C 58.00 mL PWd 1.00 cm F: 0.6 - 1.0 LV EDV A4C 93.00 mL LVDd 4.20 cm F: 3.8 - 5.2 LA Volume Index A2C 34.91 mL/m2 LVDs 3.10 cm F: 2.2 - 3.5 LA Volume Index A4C 49.17 mL/m2 Aortic Root 2.70 cm F: 2.7 - 3.3 LA Volume Index Biplane 43.23 mL/m2 RA Area A4C 15.79 cm2 LA Area A4C 21.78 cm2 LVOT 1.65 cm (M/F) 1.5-2.5 LA Area A2C 17.59 cm2 Ascending Aorta 3.01 cm F: 2.3 - 3.1 EF AP4 61.94 % LVEF (Teich) 50.90 % EF AP2 68.79 % LVEF (Acosta's) 65.68 % F: 54 - 74 EF BP 65.68 % LV Volume 60.81 mL F: 46 - 106 LV Volume Index 39.74 mL/m2 F: 29 - 61 FS 25.65 % LV Diastology E/A Ratio 1.1 MED E' 0.08 (>0.07 m/s) LV E/e MED 12.55 (<14) LAT E' 0.11 (>0.1 m/s) LV E/e LAT 8.80 (<14) Pulm Vein s 0.61 m/s PV S/D Ratio 1.35 Pulm Vein d 0.45 m/s Pulm Vein a 0.35 m/s Aortic Valve LVOT Area 2.26 cm2 LVOT Peak Ar. 1.30 m/s LVOT Mean Ar. 0.92 m/s LVOT Peak Gr. 7.00 mmHg RODERICK Vmax Index 1.21 cm2/m2 LVOT Mean Gr. 3.75 mmHg LVOT VTI 0.25 m RODERICK Mean Ar. Index 1.19 cm2/m2 AoV Peak Ar. 1.62 (0.5-1.3 m/s) AoV Mean Ar. 1.14 m/s AO Peak GR. 10.48 mmHg AO Mean GR. 5.72 (<5 mmHg) RODERICK (VTI) 1.76 (2.5-4.5 cm2) RODERICK (VTI) Index 1.15 cm/m2 Mitral Valve MV E Max Ar. 0.95 (0.4-1.3 m/s) MV A Velocity 0.90 (0.4-1.3 m/s) E/A Ratio 1.02 MV Decel. Time 196.05 (160-240 msec) MV PHT 56.86 msec MVA PHT 3.85 cm2 Tricuspid Valve TR P. Velocity 2.66 m/s TV Regurg Vmax 2.66 m/s RAP Estimate 10.00 mmHg RVSP 38.00 mmHg TR P. Gradient 28.35 mmHg
[2019-05-30] MEDS: MAGNESIUM SULFATE 4 GM/100 ML BAG IVPB (08:11)
[2019-05-30] MEDS: Folic Acid 1 MG TAB PO (08:44)
[2019-05-30] MEDS: Multivitamin TAB 1 TAB PO (08:47)
[2019-05-30] MEDS: Thiamine 100 MG TAB PO (08:47)
[2019-05-30] MEDS: Lactulose 20 GM/30 ML CUP 30 GM PO ×3 (09:30→21:09)
[2019-05-30] MEDS: Furosemide 20 MG/2 ML VIAL IVP (10:18)
--- NOTE | 2019-05-30 10:52 | W.PM.PROGNOT ---
Date of Service Date of service: 05/30/19 Time of Service: 10:52 Assessment and Plan Assessment and plan (1) Fever of undetermined origin: Status: Acute Assessment and plan: We never found a clear source for the fever, but it has defervesced. Paracentesis and CSF, urinr, blood cultures no growth. CT abd/pelvis on admission did not suggest infection other than possible pneumonia and gallbladder wall thickening. Given this and her risk of hepatic or portal vein thromboses that could also cause fever, I ordered an ultrasound of the liver with Doppler imaging. I will plan to continue the antibiotics for 48 hours after defervesced since for possible aspiration pneumonia. (2) Alcohol withdrawal: Status: Acute Assessment and plan: No longer scoring significantly on CIWA, no recent Lorazepam. I think she is through with withdrawal. (3) Alcoholic cirrhosis: Status: Acute Assessment and plan: MELD score 31 on admission, Child Frances Medina score 12, both suggesting poor prognosis. Liver function roughly stable, monitor periodically. I was able to discuss the advancing liver disease with the patient today with her and family present. Plan now is to focus on abstinence from alcohol and plan follow-up in hepatology to discuss transplant option and ongoing care. Given her decompensated state we will continue off beta-blockers. (4) Hypomagnesemia: Status: Acute Assessment and plan: monitor and continue to supplument, given another 2g today. also replacing potassium. (5) Hepatic encephalopathy: Status: Acute Assessment and plan: Patient's mental status much improved after finally getting adequate dosing of lactulose via NG tube. Given this, we are now that the hepatic encephalopathy was a major cause of her depressed mental status. She will need ongoing lactulose therapy or an alternative. She is now able to take it by mouth. I emphasized the importance of this therapy with the patient and her . (6) CHF (congestive heart failure): Status: Chronic Assessment and plan: No h/o CHF but at risk for dilated cardiomyopathy with alcohol use disorder. Get echo when available tomorrow. For now, try furosemide and stop IV fluids for now. (7) DVT prophylaxis: Status: Acute Assessment and plan: Off Lovenox given some occult blood in stool. Will give SCDs. Subjective Subjective Patient reports: blood in stool; denies nausea and shortness of breath Interval history since last seen: 24hr: LP done, cell counts not c/w infection NG tube placed and lactulose tolerated via NG Fevers stopped overnight CXRs concerning for fluid overload, responded to 20mg IV furosemide echocardiogram this morning showing normal LVEF but increase filling pressures report of heme positive stool but not grossly bloody, I stopped prophylactic LMWH this morning (was held and not given) Patient sleepy but alert and off to interact and answer questions morning. She denies feeling feverish. She has minimal appetite but did eat some this morning. She denies chest pain or shortness of breath while lying in bed. She thinks she can avoid alcohol. She is not been any formal treatment for alcohol use disorder. Exam Narrative Exam Narrative: GEN: Sleepy but arousable. Responds appropriately to questioning. HEENT: no new bleeding/bruising. +icterus, eyelids crusty. Mucous membranes dry. Neck supple, no masses/LAD lungs: CTAB. tachypneic but not coughing. Heart: RRR, no murmurs/gallops. abdomen: Less distended. not tender including right upper quadrant, no palpable organomegaly. +caput medusa. extremities no cyanosis or edema; neuro: moves all 4s but not to command. not tremulous. Objective Objective Clinical Data: Abnormal lab results 05/29/19 05/29/19 05/29/19 Range/Units 10:15 10:15 13:07 PT (9.3-11.0) sec INR (0.9-1.1) Potassium (3.5-5.1) mmol/L Chloride (98-107) mmol/L Carbon Dioxide (21.0-32.0) mmol/L Anion Gap (3-11) mmol/L Lactate (0.6-1.4) mmol/L Calcium (8.5-10.1) mg/dL Magnesium (1.8-2.4) mg/dL Ammonia 66 H (11-32) umol/L CSF RBC 40 H (0-5) /mm3 CSF RBC (1) 1238 H (0-5) /mm3 CSF Glucose 73 H (40-70) mg/dL 05/29/19 05/30/19 05/30/19 Range/Units 13:44 06:15 06:15 PT 14.2 H (9.3-11.0) sec INR 1.4 H (0.9-1.1) Potassium (3.5-5.1) mmol/L Chloride (98-107) mmol/L Carbon Dioxide (21.0-32.0) mmol/L Anion Gap (3-11) mmol/L Lactate 1.9 H (0.6-1.4) mmol/L Calcium (8.5-10.1) mg/dL Magnesium 1.6 L (1.8-2.4) mg/dL Ammonia (11-32) umol/L CSF RBC (0-5) /mm3 CSF RBC (1) (0-5) /mm3 CSF Glucose (40-70) mg/dL 05/30/19 05/30/19 Range/Units 06:15 06:15 PT (9.3-11.0) sec INR (0.9-1.1) Potassium 3.4 L (3.5-5.1) mmol/L Chloride 108 H (98-107) mmol/L Carbon Dioxide 20.9 L (21.0-32.0) mmol/L Anion Gap 11.1 H (3-11) mmol/L Lactate (0.6-1.4) mmol/L Calcium 8.0 L (8.5-10.1) mg/dL Magnesium (1.8-2.4) mg/dL Ammonia 41 H (11-32) umol/L CSF RBC (0-5) /mm3 CSF RBC (1) (0-5) /mm3 CSF Glucose (40-70) mg/dL Vital Signs Temperature 37.5 C 05/30/19 08:55 Temperature Source Temporal Artery Scan 05/30/19 08:55 Pulse 77 05/30/19 08:56 Pulse 81 05/30/19 08:56 Respiratory Rate 18 05/30/19 08:56 Respiratory Effort 05/30/19 08:55 Respiratory Depth Normal 05/30/19 08:55 Respiratory Pattern Normal 05/30/19 08:55 Blood Pressure 127/60 05/30/19 08:56 Blood Pressure Mean 74 05/30/19 08:56 Blood Pressure Position Supine 05/30/19 08:55 Pulse Oximetry 97 05/30/19 08:56 Oxygen Delivery Method Room Air 05/30/19 08:55 Oxygen Flow Rate 0 05/30/19 08:55 Pain Level 0 05/30/19 08:55 Comment 05/28/19 01:05 Intake & Output 05/29/19 05/29/19 05/30/19 11:59 23:59 11:59 Intake Total 1200 / 2210 1010 / 2210 100 / 100 Output Total 585 / 2185 1600 / 2185 450 / 450 Balance 615 / 25 -590 / 25 -350 / -350 Weight 55.7 kg Intake: IV 1200 / 2210 1010 / 2210 100 / 100 Output: Gastric Drainage 0 / 0 Right Nare 0 / 0 Urine 585 / 2185 1600 / 2185 350 / 350 Stool 100 / 100 Other: Urine Color Dark Jose Alejandro Pale Dark Jose Alejandro Yellow Urine Appearance Clear Clear Clear Urine Odor Strong Comment pollard catheter placed 0500 FC light jose alejandro urine noted Patient has a pollard catheter that is draining tea colored urine Stool Occult Blood Negative Negative Positive Stool Size Small Large Moderate Stool Characteristics Liquid Liquid Liquid Brown Gastric Occult Blood Right Nare Positive Voiding Methods Incontinent Laboratory Results WBC 6.49 k/cumm (4.4-10.8) 05/29/19 06:21 RBC 3.35 m/cumm (4.00-5.20) L 05/29/19 06:21 Hgb 12.0 g/dL (12.0-15.5) 05/29/19 06:21 Hct 34.9 % (36.0-46.0) L 05/29/19 06:21 MCV 104.2 fL (80-95) H 05/29/19 06:21 MCH 35.8 pg (27.0-33.0) H 05/29/19 06:21 MCHC 34.4 g/dL (32.0-36.0) 05/29/19 06:21 RDW 16.1 % (11.7-14.6) H 05/29/19 06:21 Plt Count 85 x1000/uL (130-400) L 05/29/19 06:21 MPV 11.6 fL (8.0-11.0) H 05/29/19 06:21 Immature Gran % 0.0 05/29/19 06:21 Neutrophils % 69.0 05/29/19 06:21 Lymphocytes % 2.0 05/29/19 06:21 Atypical Lymphs % 3 05/29/19 06:21 Monocytes % 26.0 05/29/19 06:21 Eosinophils % 0.0 05/29/19 06:21 Basophils % 0.0 05/29/19 06:21 Absolute Neutrophils 4.48 k/cumm (1.2-6.7) 05/29/19 06:21 Absolute Lymphocytes 0.32 k/cumm (1.2-3.4) L 05/29/19 06:21 Absolute Monocytes 1.69 k/cumm (0.11-0.7) H 05/29/19 06:21 Absolute Eosinophils 0.00 k/cumm (0.0-0.7) 05/29/19 06:21 Absolute Basophils 0.00 k/cumm (0.0-0.2) 05/29/19 06:21 Nucleated RBCs 1 /100WBC 05/29/19 06:21 Differential Comment Manual differential 05/29/19 06:21 RBC Morphology See below 05/29/19 06:21 Polychromasia Present 05/29/19 06:21 Xanthochromia Absent 05/29/19 10:15 Macrocytosis 2+ 05/29/19 06:21 Target Cells 2+ 05/29/19 06:21 PT 14.2 sec (9.3-11.0) H 05/30/19 06:15 INR 1.4 (0.9-1.1) H 05/30/19 06:15 APTT 27.8 sec (21.0-31.4) 05/27/19 04:15 Sodium 140 mmol/L (136-145) 05/30/19 06:15 Potassium 3.4 mmol/L (3.5-5.1) L 05/30/19 06:15 Chloride 108 mmol/L (98-107) H 05/30/19 06:15 Carbon Dioxide 20.9 mmol/L (21.0-32.0) L 05/30/19 06:15 Anion Gap 11.1 mmol/L (3-11) H 05/30/19 06:15 BUN 11 mg/dL (7-18) 05/30/19 06:15 Creatinine 0.86 mg/dL (0.55-1.02) 05/30/19 06:15 Estimated GFR/1.73 m2 >= 60.00 (mL/min/1.73m2) 05/30/19 06:15 Glucose 106 mg/dL (74-106) 05/30/19 06:15 Lactate 1.9 mmol/L (0.6-1.4) H 05/29/19 13:44 Calcium 8.0 mg/dL (8.5-10.1) L 05/30/19 06:15 Magnesium 1.6 mg/dL (1.8-2.4) L 05/30/19 06:15 Total Bilirubin 6.5 mg/dL (0.2-1.0) H 05/29/19 06:21 Conjugated Bilirubin 4.58 mg/dL (0.00-0.20) H 05/27/19 04:15 AST 77 U/L (15-37) H 05/29/19 06:21 ALT 26 U/L (14-59) 05/29/19 06:21 Alkaline Phosphatase 117 U/L (46-116) H 05/29/19 06:21 Ammonia 41 umol/L (11-32) H 05/30/19 06:15 Troponin I < 0.05 ng/Ml (<0.06) 05/27/19 04:15 NT-Pro-B Natriuret Pep 890 pg/mL (<300) 05/27/19 04:15 Total Protein 6.5 g/dL (6.4-8.2) 05/29/19 06:21 Albumin 2.3 g/dL (3.4-5.0) L 05/29/19 06:21 Procalcitonin 0.3 ng/mL 05/29/19 13:44 Urine Color Yellow (Yellow) 05/29/19 04:50 Urine Clarity Sl cloudy (Clear) 05/29/19 04:50 Urine pH 7.5 (5-8) 05/29/19 04:50 Ur Specific [place] 1.020 (1.005-1.025) 05/29/19 04:50 Urine Protein Negative mg/dL (Negative) 05/29/19 04:50 Urine Ketones Negative mg/dL (Negative) 05/29/19 04:50 Urine Blood Small (Negative) H 05/29/19 04:50 Urine Nitrite Negative (Negative) 05/29/19 04:50 Urine Bilirubin Moderate (Negative) H 05/29/19 04:50 Urine Urobilinogen >=8.0 EU/dL (Up TO 0.2) 05/29/19 04:50 Ur Leukocyte Esterase Negative (Negative) 05/29/19 04:50 Urine RBC 10-20 HPF (0-2) H 05/29/19 04:50 Urine WBC 3-5 HPF (0-5) 05/29/19 04:50 Ur Epithelial Cells Moderate HPF (Negative) 05/29/19 04:50 Urine Crystals Negative HPF (Negative) 05/29/19 04:50 Urine Bacteria Few HPF (Negative) 05/29/19 04:50 Urine Casts Negative LPF (Negative) 05/29/19 04:50 Urine Mucus Negative (Negative) 05/29/19 04:50 Urine Other Negative (Negative) 05/29/19 04:50 Ur Culture Indicated? No 05/29/19 04:50 Urine Glucose Negative mg/dL (Negative) 05/29/19 04:50 CSF Tube Number 5 05/29/19 10:15 CSF Color Colorless 05/29/19 10:15 CSF Clarity Clear 05/29/19 10:15 CSF WBC 2 /mm3 (0-5) 05/29/19 10:15 CSF RBC 40 /mm3 (0-5) H 05/29/19 10:15 CSF RBC (1) 1238 /mm3 (0-5) H 05/29/19 10:15 CSF Diff Comment Not Applicable 05/29/19 10:15 CSF Glucose 73 mg/dL (40-70) H 05/29/19 10:15 CSF Total Protein 31 mg/dL (15-45) 05/29/19 10:15 Urine Opiates Screen Negative (Negative) 05/29/19 04:50 Urine Methadone Screen Negative (Negative) 05/29/19 04:50 Ur Barbiturates Screen Negative (Negative) 05/29/19 04:50 Ur Tricyclics Screen Negative (Negative) 05/29/19 04:50 Ur Amphetamines Screen Negative (Negative) 05/29/19 04:50 U Benzodiazepines Scrn Negative (Negative) 05/29/19 04:50 Urine Cocaine Screen Negative (Negative) 05/29/19 04:50 Ur THC Screen Negative (Negative) 05/29/19 04:50 Ethyl Alcohol < 3.0 mg/dL (<3) 05/27/19 04:15
--- NOTE | 2019-05-30 10:57 | W.NUTCONSULT ---
Date of service: 05/30/19 Time of Service: 10:58 Nutritional Consult ASSESSMENT: 69 year old female in ICU with altered mental status on day 4 of NPO due to unresponsiveness. Met with nursing today, reports NPO for test this AM, but will advance diet for lunch today. Pt has awoken and asking for beverages. BMI indicates low end of normal for age. At high nutritional risk as with extended period of NPO. Will monitor po intake, weight trends and adjust meal plan as needed. Has stared to take glucerna BID and takes at home as well. Nutrient needs: 4269-5431 kcal, 50-60 g protein, 2335-2729 ml fluid. NUTRITIONAL DIAGNOSIS: Alcohol Dependence, Alcoholic cirrhosis, hepatic encephalopathy, hypomagnesemia, alcohol withdrawl INTERVENTION: monitor weight/po intake trends MONITORING AND EVALUATION: monitor weight and po intake trends Time Spent in Nutritional Counseling and Treatment: 0 time spent face to face
--- NOTE | 2019-05-30 11:15 | DI.US_ITS ---
EXAM: US ABDOMEN CLINICAL HISTORY: cirrhosis with new ascites, fever TECHNIQUE: Ultrasound performed using standard protocol. COMPARISON: ABDOMEN ULTRASOUND (P) from 07/24/2010 CT ABDOMEN PELVIS W from 02/11/2019 FINDINGS: The liver is enlarged at 21 centimeters in length. There is a diffuse coarse echotexture and nodular surface, consistent with cirrhosis. There is a moderate quantity of ascites seen around the liver a nd spleen and lower abdomen. There is no biliary dilatation. The gallbladder wall appears mildly th ickened. A few small mobile stones are noted in the gallbladder. There is a recanalized umbilical v ein. Portal vein shows reversal of flow. Splenic varices are seen. There is borderline splenomegal y. The kidneys and aorta are unremarkable. IMPRESSION: Enlarged, heterogeneous liver with reversal of portal venous flow consistent with severe cirrhosis. Splenic varices and borderline splenomegaly are noted. Gallstones are again noted to be present. Th ere is a moderate quantity of ascites.
[2019-05-30] MEDS: POTASSIUM CHLORIDE 20 MEQ/100 ML BAG 50 MEQ IVPB ×2 (12:06→14:40)
--- NOTE | 2019-05-30 17:37 | CMPROGNOTE_ITS ---
Care Management Progress Note S/O: Meredith was more alert today. CM was able to wake her up and Meredith provided appropriate answers though she appeared very tired and fell asleep mid- conversation. CM paged Supervisor [employer]: Vero who arrived and met with Meredith with success, Meredith accepted resources for follow up and Vero reported she would be returning to see Meredith tomorrow. CM continues to follow. A: 69 year old female admitted to [facility] 05/27/19 for [id number] P: Anticipate Meredith will return home upon discharge. She has resources for recovery support. She will follow up with her PCP and plan of care as prescribed. CM will continue to follow and support discharge planning considerations. Meredith will transport via private vehicle with her , Tyree.
[2019-05-31] VITALS (25 sets, daily range): BP systolic 105–142; BP diastolic 48–71; PULSE 75–105; RESP 14–24; TEMP 36.7–37.6; O2SAT 94–97
[2019-05-31] MEDS: PIPERACILLIN/TAZO 3.375 GM in Normal Saline 50 ML IVPB ×2 (00:18→05:46)
[2019-05-31] MEDS: Normal Saline Flush 10 ML SYR IVP ×4 (00:45→13:18)
[2019-05-31 06:53] LABS: ALT 23 U/L (14-59); AST 51 U/L (15-37); Albumin 1.9 g/dL (3.4-5.0); Alkaline Phosphatase 110 U/L (46-116); Anion Gap 8.2 mmol/L (3-11); BUN 15 mg/dL (7-18); Bilirubin, Total 4.2 mg/dL (0.2-1.0); CO2 21.8 mmol/L (21.0-32.0); CREATININE 0.86 mg/dL (0.55-1.02); Calcium 8.7 mg/dL (8.5-10.1); Chloride 113 mmol/L (98-107); Glucose 115 mg/dL (74-106); Magnesium 1.6 mg/dL (1.8-2.4); Potassium 3.5 mmol/L (3.5-5.1); Sodium 143 mmol/L (136-145); Total Protein 5.8 g/dL (6.4-8.2)
[2019-05-31 06:54] LABS: HCT 33.2 % (36.0-46.0); HGB 11.1 g/dL (12.0-15.5); Mean Corp. HGB Concentration 33.4 g/dL (32.0-36.0); Mean Corpuscular Volume 104.7 fL (80-95); Mean Platelet Volume 12.4 fL (8.0-11.0); Platelet Count 106 x1000/uL (130-400); RBC 3.17 m/cumm (4.00-5.20); RBC Distribution Width 16.8 % (11.7-14.6); White Blood Cell Count 7.66 k/cumm (4.4-10.8)
[2019-05-31 07:40] LABS: Absolute Lymphocyte Count 1.15 k/cumm (1.2-3.4); Absolute Neutrophil Count 3.83 k/cumm (1.2-6.7); Atypical Lymphocytes % 3
[2019-05-31 07:41] LABS: Absolute Eosinophil Count 0.23 k/cumm (0.0-0.7); Absolute Monocyte Count 2.45 k/cumm (0.11-0.7); Diff Comment Manual Differential
[2019-05-31 07:43] LABS: Anisocytosis 1+; Hypochromasia 1+; Polychromasia Present
[2019-05-31] MEDS: Folic Acid 1 MG TAB PO (08:41)
--- NOTE | 2019-05-31 08:41 | PDOC.CMPRO ---
- If Service Date Differs Date of service: 05/31/19 Time of Service: 08:41
[2019-05-31] MEDS: Lactulose 20 GM/30 ML CUP 30 GM PO ×3 (08:42→19:20)
[2019-05-31] MEDS: Thiamine 100 MG TAB PO (08:42)
[2019-05-31] MEDS: Multivitamin TAB 1 TAB PO (08:42)
[2019-05-31] MEDS: AMPICILLIN/SULBACTAM 1.5 GM in Normal Saline 50 ML IVPB ×2 (10:59→19:21)
--- NOTE | 2019-05-31 11:20 | CMPROGNOTE_ITS ---
- If Service Date Differs Date of service: 05/31/19 Time of Service: 11:20 Care Management Progress Note S/O: Meredith remains acute in the ICU at this time. trolley coach driver tried to meet with her today she was able to, she did meet with the spouse. No other changes today Meredith will need follow up with Liver specialist after discharge and need ongoing support with community providers including therapist. trolley coach driver continue to meet with her while she is inpatient daily. A: 69 year old female admitted to [facility] 05/27/19 for [id number], fevers, and alcohol withdrawal. P: Anticipate Meredith will return home upon discharge. She has met recovery support who are willing to meet with her and her spouse to assist with resources. She will follow up with her PCP and plan as directed. CM will continue to follow and support discharge planning considerations. Meredith will transport via private vehicle with her , Tyree.
--- NOTE | 2019-05-31 11:30 | PGE_ITS ---
Date of Service Date of service: 05/31/19 Time of Service: 11:30 Assessment and Plan Assessment and plan (1) Fever of undetermined origin: Status: Acute Assessment and plan: fever curve improving. LP negative, paracentesis negative, UA negative, CXR negative. Imaging was suggestive of possible cholecystitis which may be nidus of infection although clinical presentation without any abdominal pain is not classic, no biliary dilation. Will de escalate abx to unasyn today and plan for 5 days total abx. given that there are gallstones seen on US cholecysectomy could be considered when recoved from acute illness (2) Alcoholic cirrhosis: Status: Acute Assessment and plan: meld score 31 on admission indication over 50% 3 month mortality. she will need to follow up with hepatology on discharge. she would likely benefit from diuretic regimen when more stable. (3) Alcohol withdrawal: Status: Acute Assessment and plan: no longer requiring benzos, will d/c ciwa monitoring (4) Hepatic encephalopathy: Status: Acute Assessment and plan: improving with lactulose (5) Thrombocytopenia: Status: Chronic Assessment and plan: secondary to underlying liver disease, improving (6) DVT prophylaxis: Status: Acute Assessment and plan: coagulopathy from underlying liver disease. given thrombocytopenia, epistaxis and heme positive stool will hold pharmacologic ppx for now Subjective Subjective Interval history since last seen: Patient remains afebrile for the last 24 hrs. Echo without evidence CHF/dilated cardiomyopathy, portal venous dopplers without DVT. Mental status is slowly improving with lactulose. No longer requiring benzos. Denies fevers, chills, abdominal pain. Having some epistaxis. Exam Narrative Exam Narrative: GEN: NAD, non toxic HEENT: improving scleral icterus CV: RRR, nl s1 and s2 LUNGS: CTAB ABD: hyperactive bowel sounds, distended, +caput medusae over EXT: symmetrical, 2+ edema NEURO: oriented to person and place, not oriented to time, atremulous, non focal Objective Objective Clinical Data: Abnormal lab results 05/31/19 05/31/19 Range/Units 06:05 06:05 RBC 3.17 L (4.00-5.20) m/cumm Hgb 11.1 L (12.0-15.5) g/dL Hct 33.2 L (36.0-46.0) % MCV 104.7 H (80-95) fL MCH 35.0 H (27.0-33.0) pg RDW 16.8 H (11.7-14.6) % Plt Count 106 L (130-400) x1000/uL MPV 12.4 H (8.0-11.0) fL Absolute Lymphocytes 1.15 L (1.2-3.4) k/cumm Absolute Monocytes 2.45 H (0.11-0.7) k/cumm Chloride 113 H (98-107) mmol/L Glucose 115 H (74-106) mg/dL Magnesium 1.6 L (1.8-2.4) mg/dL Total Bilirubin 4.2 H (0.2-1.0) mg/dL AST 51 H (15-37) U/L Total Protein 5.8 L (6.4-8.2) g/dL Albumin 1.9 L (3.4-5.0) g/dL Vital Signs Temperature 37.4 C 05/31/19 09:13 Temperature Source Temporal Artery Scan 05/31/19 09:13 Pulse 75 05/31/19 09:13 Pulse 92 H 05/31/19 02:02 Respiratory Rate 20 05/31/19 09:13 Respiratory Effort 05/31/19 09:13 Respiratory Depth Normal 05/31/19 09:13 Respiratory Pattern Normal 05/31/19 09:13 Blood Pressure 107/54 L 05/31/19 09:13 Blood Pressure Mean 71 05/31/19 09:13 Blood Pressure Position Supine 05/31/19 09:13 Pulse Oximetry 96 05/31/19 09:13 Oxygen Delivery Method Room Air 05/31/19 09:13 Oxygen Flow Rate 0 05/31/19 09:13 Pain Level 0 05/31/19 09:13 Comment 05/28/19 01:05 Intake & Output 05/30/19 05/30/19 05/31/19 11:59 23:59 11:59 Intake Total 100 / 720 620 / 720 550 / 550 Output Total 450 / 750 300 / 750 300 / 300 Balance -350 / -30 320 / -30 250 / 250 Weight 55 kg Intake: IV 100 / 300 200 / 300 100 / 100 Oral 420 / 420 450 / 450 Output: Urine 350 / 600 250 / 600 300 / 300 Stool 100 / 150 50 / 150 Other: Urine Color Dark Moni Brown Dark Moni Brown Urine Appearance Clear Clear Cloudy Comment Patient has a pollard catheter that is draining tea colored urine pollard to gravity urine brown Pollard cath in place, draining clear, dark orange urine. Large billirubin and +2 urobilinogen, PH 8.5, SG 1.020. Stool Occult Blood Positive Negative Stool Size Moderate Small Moderate Stool Characteristics Liquid Liquid Liquid Brown Laboratory Results WBC 7.66 k/cumm (4.4-10.8) 05/31/19 06:05 RBC 3.17 m/cumm (4.00-5.20) L 05/31/19 06:05 Hgb 11.1 g/dL (12.0-15.5) L 05/31/19 06:05 Hct 33.2 % (36.0-46.0) L 05/31/19 06:05 MCV 104.7 fL (80-95) H 05/31/19 06:05 MCH 35.0 pg (27.0-33.0) H 05/31/19 06:05 MCHC 33.4 g/dL (32.0-36.0) 05/31/19 06:05 RDW 16.8 % (11.7-14.6) H 05/31/19 06:05 Plt Count 106 x1000/uL (130-400) L 05/31/19 06:05 MPV 12.4 fL (8.0-11.0) H 05/31/19 06:05 Immature Gran % See Differential 05/31/19 06:05 Neutrophils % 50.0 05/31/19 06:05 Lymphocytes % 12.0 05/31/19 06:05 Atypical Lymphs % 3 05/31/19 06:05 Monocytes % 32.0 05/31/19 06:05 Eosinophils % 3.0 05/31/19 06:05 Basophils % 0.0 05/31/19 06:05 Absolute Neutrophils 3.83 k/cumm (1.2-6.7) 05/31/19 06:05 Absolute Lymphocytes 1.15 k/cumm (1.2-3.4) L 05/31/19 06:05 Absolute Monocytes 2.45 k/cumm (0.11-0.7) H 05/31/19 06:05 Absolute Eosinophils 0.23 k/cumm (0.0-0.7) 05/31/19 06:05 Absolute Basophils 0.00 k/cumm (0.0-0.2) 05/31/19 06:05 Nucleated RBCs 1 /100WBC 05/29/19 06:21 Differential Comment Manual differential 05/31/19 06:05 RBC Morphology See below 05/31/19 06:05 Polychromasia Present 05/31/19 06:05 Hypochromasia 1+ 05/31/19 06:05 Xanthochromia Absent 05/29/19 10:15 Anisocytosis 1+ 05/31/19 06:05 Macrocytosis 2+ 05/29/19 06:21 Target Cells 2+ 05/29/19 06:21 PT 14.2 sec (9.3-11.0) H 05/30/19 06:15 INR 1.4 (0.9-1.1) H 05/30/19 06:15 APTT 27.8 sec (21.0-31.4) 05/27/19 04:15 Sodium 143 mmol/L (136-145) 05/31/19 06:05 Potassium 3.5 mmol/L (3.5-5.1) 05/31/19 06:05 Chloride 113 mmol/L (98-107) H 05/31/19 06:05 Carbon Dioxide 21.8 mmol/L (21.0-32.0) 05/31/19 06:05 Anion Gap 8.2 mmol/L (3-11) 05/31/19 06:05 BUN 15 mg/dL (7-18) 05/31/19 06:05 Creatinine 0.86 mg/dL (0.55-1.02) 05/31/19 06:05 Estimated GFR/1.73 m2 >= 60.00 (mL/min/1.73m2) 05/31/19 06:05 Glucose 115 mg/dL (74-106) H 05/31/19 06:05 Lactate 1.9 mmol/L (0.6-1.4) H 05/29/19 13:44 Calcium 8.7 mg/dL (8.5-10.1) 05/31/19 06:05 Magnesium 1.6 mg/dL (1.8-2.4) L 05/31/19 06:05 Total Bilirubin 4.2 mg/dL (0.2-1.0) H 05/31/19 06:05 Conjugated Bilirubin 4.58 mg/dL (0.00-0.20) H 05/27/19 04:15 AST 51 U/L (15-37) H 05/31/19 06:05 ALT 23 U/L (14-59) 05/31/19 06:05 Alkaline Phosphatase 110 U/L (46-116) 05/31/19 06:05 Ammonia 41 umol/L (11-32) H 05/30/19 06:15 Troponin I < 0.05 ng/Ml (<0.06) 05/27/19 04:15 NT-Pro-B Natriuret Pep 890 pg/mL (<300) 05/27/19 04:15 Total Protein 5.8 g/dL (6.4-8.2) L 05/31/19 06:05 Albumin 1.9 g/dL (3.4-5.0) L 05/31/19 06:05 Procalcitonin 0.3 ng/mL 05/29/19 13:44 Urine Color Yellow (Yellow) 05/29/19 04:50 Urine Clarity Sl cloudy (Clear) 05/29/19 04:50 Urine pH 7.5 (5-8) 05/29/19 04:50 Ur Specific [place] 1.020 (1.005-1.025) 05/29/19 04:50 Urine Protein Negative mg/dL (Negative) 05/29/19 04:50 Urine Ketones Negative mg/dL (Negative) 05/29/19 04:50 Urine Blood Small (Negative) H 05/29/19 04:50 Urine Nitrite Negative (Negative) 05/29/19 04:50 Urine Bilirubin Moderate (Negative) H 05/29/19 04:50 Urine Urobilinogen >=8.0 EU/dL (Up TO 0.2) 05/29/19 04:50 Ur Leukocyte Esterase Negative (Negative) 05/29/19 04:50 Urine RBC 10-20 HPF (0-2) H 05/29/19 04:50 Urine WBC 3-5 HPF (0-5) 05/29/19 04:50 Ur Epithelial Cells Moderate HPF (Negative) 05/29/19 04:50 Urine Crystals Negative HPF (Negative) 05/29/19 04:50 Urine Bacteria Few HPF (Negative) 05/29/19 04:50 Urine Casts Negative LPF (Negative) 05/29/19 04:50 Urine Mucus Negative (Negative) 05/29/19 04:50 Urine Other Negative (Negative) 05/29/19 04:50 Ur Culture Indicated? No 05/29/19 04:50 Urine Glucose Negative mg/dL (Negative) 05/29/19 04:50 CSF Tube Number 5 05/29/19 10:15 CSF Color Colorless 05/29/19 10:15 CSF Clarity Clear 05/29/19 10:15 CSF WBC 2 /mm3 (0-5) 05/29/19 10:15 CSF RBC 40 /mm3 (0-5) H 05/29/19 10:15 CSF RBC (1) 1238 /mm3 (0-5) H 05/29/19 10:15 CSF Diff Comment Not Applicable 05/29/19 10:15 CSF Glucose 73 mg/dL (40-70) H 05/29/19 10:15 CSF Total Protein 31 mg/dL (15-45) 05/29/19 10:15 Urine Opiates Screen Negative (Negative) 05/29/19 04:50 Urine Methadone Screen Negative (Negative) 05/29/19 04:50 Ur Barbiturates Screen Negative (Negative) 05/29/19 04:50 Ur Tricyclics Screen Negative (Negative) 05/29/19 04:50 Ur Amphetamines Screen Negative (Negative) 05/29/19 04:50 U Benzodiazepines Scrn Negative (Negative) 05/29/19 04:50 Urine Cocaine Screen Negative (Negative) 05/29/19 04:50 Ur THC Screen Negative (Negative) 05/29/19 04:50 Ethyl Alcohol < 3.0 mg/dL (<3) 05/27/19 04:15
[2019-05-31] MEDS: MAGNESIUM SULFATE 2 GM/50 ML BAG IVPB (13:11)
--- NOTE | 2019-05-31 13:29 | W.NUTRFU ---
Date of service: 05/31/19 Time of Service: 13:30 Nutritional Follow up NOTE: Meredith is down 5.5 lbs since admission 5 days ago, NPO x 4 days, has been PO x 24 hours with poor po intake. Averaging less than 300 kcal per meal, nursing reports does well with beverages. Sat with patient at lunch today, was unable to feed self due to lethargy and resisted assistance from commercial loan underwriter. Nursing to feed patient as willing. Will start ensure BID to aid in nutrient delivery. Continues at high nutritional risk. Expect po intake to increase as lethargy subsides. Time Spent in Nutritional Counseling and Treatment: 15 minutes face to face
--- NOTE | 2019-05-31 14:19 | CHAPLAIN ---
Meredith was sleeping when I visited. I have not spoke with her since the second day of her admission, when she was talking but not totally clear. I have visited with Henry few times, and spoke with him again today. Meredith is Hinduism and Fr. Aguirre visited yesterday. I will continue to visit.
[2019-06-01] VITALS (26 sets, daily range): BP systolic 114–144; BP diastolic 45–61; PULSE 76–102; RESP 13–28; TEMP 37.1–38.5; O2SAT 92–98
[2019-06-01] MEDS: AMPICILLIN/SULBACTAM 1.5 GM in Normal Saline 50 ML IVPB ×2 (02:00→11:30)
[2019-06-01] MEDS: Acetaminophen 325 MG TAB 650 MG PO (04:31)
[2019-06-01 06:46] LABS: HGB 11.4 g/dL (12.0-15.5); Mean Corp. HGB Concentration 33.5 g/dL (32.0-36.0); Mean Corpuscular Hemoglobin 35.4 pg (27.0-33.0); Mean Corpuscular Volume 105.6 fL (80-95); Mean Platelet Volume 12.3 fL (8.0-11.0); Platelet Count 130 x1000/uL (130-400); RBC 3.22 m/cumm (4.00-5.20); RBC Distribution Width 17.3 % (11.7-14.6); White Blood Cell Count 8.94 k/cumm (4.4-10.8)
[2019-06-01 07:35] LABS: ALT 22 U/L (14-59); AST 47 U/L (15-37); Alkaline Phosphatase 102 U/L (46-116); Anion Gap 9.6 mmol/L (3-11); BUN 16 mg/dL (7-18); Bilirubin, Total 4.1 mg/dL (0.2-1.0); CO2 21.4 mmol/L (21.0-32.0); CREATININE 0.64 mg/dL (0.55-1.02); Calcium 8.9 mg/dL (8.5-10.1); Chloride 113 mmol/L (98-107); Glucose 121 mg/dL (74-106); Magnesium 1.4 mg/dL (1.8-2.4); Sodium 144 mmol/L (136-145); Total Protein 6.3 g/dL (6.4-8.2)
[2019-06-01] MEDS: Folic Acid 1 MG TAB PO (08:53)
[2019-06-01] MEDS: Multivitamin TAB 1 TAB PO (08:53)
[2019-06-01] MEDS: Lactulose 20 GM/30 ML CUP 30 GM PO ×2 (08:53→14:03)
[2019-06-01] MEDS: Thiamine 100 MG TAB PO (08:53)
[2019-06-01] MEDS: MAGNESIUM SULFATE 4 GM/100 ML BAG IVPB (09:27)
--- NOTE | 2019-06-01 16:12 | W.PM.DS.N ---
Date of service: 06/01/19 Time of Service: 16:12 DS: Diagnosis Discharge Diagnosis (1) Cholecystitis: Status: Acute Asessment and Plan: Patient likely has acute cholecystitis based on the abdominal ultrasound that shows a thickened gallbladder and the presence of stones. This was discovered in the process of her work-up for fever of unknown origin. At this point it is a diagnosis of exclusion as all other sources of infection appear to be negative. Given her underlying cirrhosis and liver failure she is a very high surgical risk. The possibility of a cholecystotomy tube for biliary tract drainage or high risk abdominal surgery to remove her gallbladder or continued IV antibiotics are her main options. Given the high risk nature of her disease it was determined that a higher level of care was her best option at this time. (2) Fever of undetermined origin: Status: Acute Asessment and Plan: LP negative, paracentesis negative, blood cultures negative, urine culture negative, positive abdominal ultrasound for cholecystitis. (3) Alcoholic cirrhosis: Status: Acute Asessment and Plan: Abdominal ultrasound shows advanced cirrhosis. She has moderate coagulopathy with an INR of 1.4. Total bilirubin has come down from 7.124.1. M ELD score 16. (4) Alcohol withdrawal: Status: Acute Asessment and Plan: Patient underwent acute alcohol withdrawal which appears to be complete. It appears she presented with an alcohol withdrawal seizure on 05/28/2019. (5) Hepatic encephalopathy: Status: Acute Asessment and Plan: Currently on lactulose 30 g 3 times daily with improvement in her encephalopathy. (6) Seizure concurrent with and due to sedative withdrawal: Status: Acute Asessment and Plan: No further seizures with completion of her alcohol withdrawal. Discharge Plan Disposition Patient Disposition: [facility] Condition: Stable Discharge Details Chief Complaint: AMS/LOC Clinical Impression: Loss of consciousness, Hyperbilirubinemia Reason For Visit: SYNCOPE VS SEIZURE Admit Date/Time: 05/28/19 13:14 Admit Provider: Tyree Murry Attending Provider: Tyree Murry Primary Care Provider: Nohemy Raines ED Provider: Dillan Davis Hospital Course Hospital Course: 69-year-old female with a long history of alcohol use syndrome presented with unresponsive episode lasting 10 minutes followed by a period of combativeness and confusion. It was presumed that she had a seizure. She suffered a scalp hematoma. Initial bilirubin was 7.1, magnesium 1.2, INR 1.4. Her head CT was negative, C-spine negative. She went on to have intermittent fever as high as 38.5 ?C. Her fever work-up included lumbar puncture, paracentesis, blood cultures, chest x-ray, and urine culture. This far all cultures are negative. An abdominal ultrasound showed evidence of thickening of the gallbladder and gallstones. She was presumed to have cholecystitis and was started on Unasyn. Her withdrawal symptoms improved and she was taken off CIWA scoring. She has not required any further medication for her withdrawal symptoms. She has been on lactulose 30 g 3 times daily for symptoms of hepatic encephalopathy. Her sensorium has cleared markedly in the last 48 hours. General surgery was consulted regarding the evidence of cholecystitis and high fevers. She was deemed to be a very high surgical risk because of her underlying cirrhosis, liver failure, coagulopathy. We spoke with general surgery at [facility] and they accepted her for transfer likely to the medical service with surgical consultation. Home Meds and New Rx's Prescriptions: Continued niacin 250 MG capsule, extended release 250 mg PO Q OTHER DAY RF: 0 calcium carbonate [Calcium 500] 500 MG tablet 500 mg PO 2 tabs daily RF: 0 epinephrine 0.3 MG/0.3 ML auto-injector 0.3 mg IM PRN RF: 0 cholecalciferol (vitamin D3) 1,000 UNIT capsule 1,000 unit PO DAILY RF: 0 multivitamin [Multi-Day] 1 EACH tablet 1 ea PO DAILY RF: 0 magnesium oxide 400 MG tablet 400 mg PO DAILY RF: 0 VITAMIN C 500 mg PO DAILY RF: 0 lidocaine 15 GM cream 15 gm Topical Q4H PRN Qty: 1 RF: 1 lisinopril 10 MG tablet 10 mg PO DAILY RF: 0 Discharge Instructions Instructions: Cholecystitis (DC) Activity:: bedrest Diet:: NPO Discharge Orders Discharge Orders: Discharge Order (Routine); Ordered 06/01/19 Ordered By: Dillan Delacruz DS: Summary Status at Discharge Functional status at discharge: uses cane/walker Overall status at discharge: patient is not back to baseline Mental Status: other (Mild to moderate hepatic encephalopathy, improving) Speech and Movement: delayed speech Mood: other (Mild to moderate hepatic encephalopathy, improving) Affect: sad and anxious affect Time Spent with Patient providing and/or coordinating discharge services: Greater than 30 minutes Exam Narrative Exam Narrative: Patient exhibits some psychomotor slowing. She does appear to comprehend most of the discussion today. She has no tremor. No respiratory difficulty. Her lung sounds are clear on the right and left. Heart sounds are strong and regular. No apparent murmur. Her abdomen shows evidence of ascites with bloating. She has no right upper quadrant tenderness, negative Diaz sign. There are no palpable masses. Lower extremities no CCE. Psych Mental Status: other (Mild to moderate hepatic encephalopathy, improving) Speech and Movement: delayed speech Mood: other (Mild to moderate hepatic encephalopathy, improving) Affect: sad and anxious affect DS: Data Vitals/I&O Vitals and I&O: Vital Signs Temperature 37.6 C H 06/01/19 13:45 Temperature Source Temporal Artery Scan 06/01/19 13:45 Pulse 81 06/01/19 13:45 Pulse 96 H 06/01/19 06:00 Respiratory Rate 15 06/01/19 13:45 Respiratory Effort Non-Labored 06/01/19 13:45 Respiratory Depth Normal 06/01/19 13:45 Respiratory Pattern Normal 06/01/19 13:45 Blood Pressure 134/57 L 06/01/19 13:45 Blood Pressure Mean 82 06/01/19 13:45 Blood Pressure Position Supine 06/01/19 13:45 Pulse Oximetry 94 L 06/01/19 13:45 Oxygen Delivery Method Room Air 06/01/19 13:45 Oxygen Flow Rate 0 06/01/19 13:45 Pain Level 0 06/01/19 13:45 Comment 05/28/19 01:05 Intake & Output 05/31/19 06/01/19 06/01/19 23:59 11:59 23:59 Intake Total 1555 / 2155 690 / 740 50 / 740 Output Total 500 / 800 1150 / 1150 Balance 1055 / 1355 -460 / -410 50 / -410 Weight 58.8 kg Intake: IV 100 / 250 50 / 100 50 / 100 Oral 1455 / 1905 640 / 640 Output: Urine 350 / 650 1150 / 1150 Stool 150 / 150 Other: Urine Color Dark Jose Alejandro Dark Jose Alejandro Urine Appearance Clear Clear Urine Odor Normal Comment Cristina cath in place, draining clear, dark orange/tea urine. Fothy cath in place, patent, draining dark jose alejandro urine. Fothy cath in place, patent, draining dark jose alejandro urine. Stool Occult Blood Negative Positive Stool Size Small Small Stool Characteristics Liquid Soft Liquid Voiding Methods Urinal Data Completed and Pending Labs on day of discharge: Labs from last 24 hours 06/01/19 06/01/19 05/31/19 06:25 06:25 06:05 WBC 8.94 RBC 3.22 L Hgb 11.4 L Hct 34.0 L MCV 105.6 H MCH 35.4 H MCHC 33.5 RDW 17.3 H Plt Count 130 MPV 12.3 H Sodium 144 Potassium 4.0 Chloride 113 H Carbon Dioxide 21.4 Anion Gap 9.6 BUN 16 Creatinine 0.64 Estimated GFR/1.73 m2 >= 60.00 Glucose 121 H Calcium 8.9 Magnesium 1.4 L Total Bilirubin 4.1 H AST 47 H ALT 22 Alkaline Phosphatase 102 Total Protein 6.3 L Albumin 2.0 L Path Cons Comment See comment Preliminary micro results at discharge 05/28/19 16:58 Body Fluid Culture - Preliminary Peritoneal 05/28/19 16:58 Anaerobic Culture - Preliminary Paracentesis 05/29/19 10:15 Body Fluid Culture - Preliminary Cerebrospinal Fluid [facility] Medical History Alcohol dependence (Acute) Alcoholic cirrhosis (Acute) CHF (congestive heart failure) (Chronic) Hepatic encephalopathy (Acute) Hyperlipidemia Surgical History Colonoscopy - [facility] (09/29/16) Social History Smoking/Tobacco Use Status: Former Tobacco Use Alcohol Intake: current Alcohol Intake frequency: 3 or more drinks per day Drug use: Never Substance use type: does not use Do you feel safe at home: Yes Do you feel safe in your relationship?: Yes
--- NOTE | 2019-06-01 16:50 | CMPROGNOTE_ITS ---
Care Management Progress Note Meredith was transferred to tertiary [place] due to ongoing concerns and lack of progress. Refer to MD note for further information. Meredith met with Communications Operator today and contracted for services in the community. CM notified Communications Operator of transfer to ensure follow up.
--- NOTE | 2019-06-01 16:50 | PDOC.CMPRO ---
Care Management Progress Note Meredith was transferred to tertiary [place] due to ongoing concerns and lack of progress. Refer to MD note for further information. Meredith met with Outdoor Education Teacher today and contracted for services in the community. CM notified Outdoor Education Teacher of transfer to ensure follow up.
--- NOTE | 2019-06-02 10:50 | PT.INNT ---
Date of service: 06/02/19 Time of Service: 10:50 PT Notes Visit Reasons: SYNCOPE VS SEIZURE Patient was transferred to [facility] on 06/02/2019 for continued medical intervention and surgical consultation for cholecystitis and high fevers. Thank you very much for this referral. Onelia Means PT, DPT, CLT [facility] Inpatient PT at [facility]
[2019-06-17 16:20] LABS: Platelet Count 70 x1000/uL (130-400)
== END 2019-06-01 16:25 | disposition short-term general hospital (02) | DRG 81 ==
LOC: ER 07:51 → ICU 08:02
PROVIDERS: Family Medicine; Internal Medicine; Physician Assistant; Admitting Provider General Practice; Emergency Provider Emergency Medicine; PCP Nurse Practitioner Family; Visit Provider Family Medicine
DX: R40.20 Unspecified coma (principal); F10.239 Alcohol dependence with withdrawal, unspecified; K81.0 Acute cholecystitis; F10.288 Alcohol dependence with other alcohol-induced disorder; R56.9 Unspecified convulsions; R50.9 Fever, unspecified; K70.31 Alcoholic cirrhosis of liver with ascites; Z78.1 Physical restraint status; E80.6 Other disorders of bilirubin metabolism; D69.59 Other secondary thrombocytopenia; E83.42 Hypomagnesemia; I08.1 Rheumatic disorders of both mitral and tricuspid valves; K70.40 Alcoholic hepatic failure without coma; S00.03XA Contusion of scalp, initial encounter; W19.XXXA Unspecified fall, initial encounter; I86.8 Varicose veins of other specified sites; I50.9 Heart failure, unspecified; R04.0 Epistaxis; R19.5 Other fecal abnormalities
CPT/HCPCS: 36415; 49083; 62270; 71045; 74150; 80048; 80053; 80307; 82945; 84145; 85027; 89050; 89051; 93005; 93306; 96365; 96375; 99222; 99232; 99233; 99239; 99253; 99285; J1650; NC; 70450; 72125; 76700; 80320; 81003; 81015; 82140; 82247; 82248; 83605; 83735; 83880; 84157; 84450; 84460; 84484; 85025; 85610; 85730; 87070; 87075; 87205; 93010; 99218; 99284; G0378; J0295; J1941; J1953; J2060; J2543; J3475; J3480; J3490

== ENCOUNTER 2019-06-06 12:52 | Outpatient (REF) | payer MEDICARE, OTHER, SELFPAY ==
[2019-06-06 21:29] LABS: HCT 34.3 % (36.0-46.0); HGB 11.4 g/dL (12.0-15.5); Mean Corp. HGB Concentration 33.2 g/dL (32.0-36.0); Mean Corpuscular Hemoglobin 35.6 pg (27.0-33.0); Mean Corpuscular Volume 107.2 fL (80-95); Mean Platelet Volume 12.9 fL (8.0-11.0); Platelet Count 267 x1000/uL (130-400); White Blood Cell Count 8.67 k/cumm (4.4-10.8)
[2019-06-06 22:06] LABS: ALT 34 U/L (14-59); AST 59 U/L (15-37); Albumin 2.6 g/dL (3.4-5.0); Alkaline Phosphatase 99 U/L (46-116); Anion Gap 7.3 mmol/L (3-11); BUN 17 mg/dL (7-18); Bilirubin, Total 4.4 mg/dL (0.2-1.0); CO2 26.7 mmol/L (21.0-32.0); CREATININE 0.72 mg/dL (0.55-1.02); Calcium 9.7 mg/dL (8.5-10.1); Chloride 106 mmol/L (98-107); Glucose 99 mg/dL (74-106); Magnesium 1.4 mg/dL (1.8-2.4); Potassium 4.5 mmol/L (3.5-5.1); Sodium 140 mmol/L (136-145); Total Protein 6.9 g/dL (6.4-8.2)
== END 2019-06-06 13:12 ==
LOC: NCHCN 12:52
PROVIDERS: PCP Nurse Practitioner Family; Visit Provider Internal Medicine
DX: M70.41 Prepatellar bursitis, right knee (principal); D75.89 Other specified diseases of blood and blood-forming organs; D69.6 Thrombocytopenia, unspecified; E83.42 Hypomagnesemia
CPT/HCPCS: 80053; 85027; 83735; 87070; 87205

== ENCOUNTER 2019-06-21 01:22 | Outpatient (CLI) | payer MEDICARE, OTHER, SELFPAY ==
--- NOTE | 2019-06-21 08:08 | DI.US_ITS ---
EXAM: US AAA SCREENING CLINICAL HISTORY: SCREENING FOR ABDOMINAL AORTIC ANEURYSM TECHNIQUE: Ultrasound performed using standard protocol. COMPARISON: No exams were available for comparison FINDINGS: There is no evidence of abdominal aortic aneurysm. Ascites and cirrhotic appearing liver are again n oted. The iliac arteries are normal in diameter. Retrograde flow in the portal vein and recanalized umbilical vein are again demonstrated. IMPRESSION: No evidence of abdominal aortic aneurysm.
== END 2019-06-21 01:42 ==
PROVIDERS: PCP Nurse Practitioner Family; Visit Provider Nurse Practitioner Family
DX: Z13.6 Encounter for screening for cardiovascular disorders (principal); R18.8 Other ascites; K74.60 Unspecified cirrhosis of liver
CPT/HCPCS: 76706

== ENCOUNTER 2019-07-05 10:22 | Outpatient (REF) | payer MEDICARE, OTHER, SELFPAY ==
[2019-07-05 12:09] LABS: HCT 35.8 % (36.0-46.0); HGB 11.7 g/dL (12.0-15.5); Mean Corp. HGB Concentration 32.7 g/dL (32.0-36.0); Mean Corpuscular Hemoglobin 34.4 pg (27.0-33.0); Mean Corpuscular Volume 105.3 fL (80-95); Mean Platelet Volume 10.3 fL (8.0-11.0); Platelet Count 167 x1000/uL (130-400); RBC Distribution Width 13.2 % (11.7-14.6); White Blood Cell Count 4.41 k/cumm (4.4-10.8)
[2019-07-05 12:50] LABS: ALT 28 U/L (14-59); AST 41 U/L (15-37); Albumin 2.7 g/dL (3.4-5.0); Alkaline Phosphatase 66 U/L (46-116); Anion Gap 9.4 mmol/L (3-11); BUN 10 mg/dL (7-18); Bilirubin, Total 1.7 mg/dL (0.2-1.0); CO2 26.6 mmol/L (21.0-32.0); CREATININE 0.69 mg/dL (0.55-1.02); Calcium 9.7 mg/dL (8.5-10.1); Chloride 105 mmol/L (98-107); Glucose 109 mg/dL (74-106); Magnesium 1.5 mg/dL (1.8-2.4); Potassium 4.3 mmol/L (3.5-5.1); Sodium 141 mmol/L (136-145)
== END 2019-07-05 10:42 ==
LOC: NCHCN 10:22
PROVIDERS: PCP Nurse Practitioner Family; Visit Provider Nurse Practitioner Family
DX: K74.60 Unspecified cirrhosis of liver (principal)
CPT/HCPCS: 80053; 85027; 83735

== ENCOUNTER 2019-07-12 00:50 | Outpatient (CLI) | payer MEDICARE, OTHER, SELFPAY ==
--- NOTE | 2019-07-12 08:32 | DI.MAMMO_ITS ---
EXAM: MG MAMMO SCREENING CLINICAL HISTORY: SCREENING, Z12.31. TECHNIQUE: Bilateral full field digital CC and MLO mammographic images were obtained with 3D tomosyn thesis and utilizing computer aided detection (CAD). COMPARISON: 2009 through 2017 FINDINGS: The patient has undergone significant weight loss and there is increased breast density when compared with older examinations. Masses/Architectural Distortion: None seen. Microcalcifications: No suspicious pleomorphic-type are seen. Coarse, benign calcifications and vascu lar calcifications are again noted. Skin Thickening/Nipple Retraction: None. IMPRESSION: 1. No significant interval change with no specific features of malignancy noted. 2. Unless there is more urgent need, annual screening mammography is recommended, as per [place] [employer] guidelines. BI-RADS Cat 2 - Benign Findings Breast Density Category D: The mammogram demonstrates the patient's breast tissue is dense. Dense basilia ast tissue is very common and is not abnormal but dense breast tissue can make it harder to find canc er on a mammogram. Also, dense breast tissue may increase their breast cancer risk. This information about the result of the mammogram report was provided to the patient to raise their awareness. Use th is report when you speak with the patient about their risks for breast cancer, which includes their f amily history. At that time, you may recommend for more screening tests (Ultrasound or MRI) as they m ight be useful based on their risk. A negative radiographic report should not delay biopsy if a dominant or clinically suspicious mass is present. Up to ten percent of cancers are not identified on mammography. A negative report may reinforce clinical impression. Adenosis and dense breasts may obscure an underlying neoplasm. False positive reports average 6 to 10%.
== END 2019-07-12 01:10 ==
PROVIDERS: PCP Nurse Practitioner Family; Visit Provider Nurse Practitioner Family
DX: Z12.31 Encounter for screening mammogram for malignant neoplasm of breast (principal); N64.59 Other signs and symptoms in breast
CPT/HCPCS: 77063; 77067

== ENCOUNTER 2019-07-14 01:24 | Outpatient (CLI) | payer MEDICARE, OTHER, SELFPAY ==
--- NOTE | 2019-07-14 14:26 | DI.DEXA_ITS ---
EXAM: XR DEXA BONE DENSITY W/WO TREVA CLINICAL HISTORY: MENOPAUSAL Z78.0, OSTEOPOROSIS M81.0 TECHNIQUE: DEXA scan was performed according to the usual protocol. COMPARISON: No exams were available for comparison FINDINGS: Findings for left hip scanning are T-score of -2.4 with left femoral neck T-score of -2.7. Prior iman dy of September 2016 showed left hip T-score of -2.1. Lumbar spine scanning shows T-score of -1.1, prior study of 2017 showed lumbar T-score -0.1. Left forearm scanning shows T-score of -1.3, compared to -0.4 in 2017. IMPRESSION: Findings consistent with osteoporosis according to WHO criteria. The lateral vertebral scanogram issac ws no evidence of a vertebral compression fracture. I would note that the midthoracic spine is not i deally visualized and it would be impossible to exclude mild compression fracture in the midthoracic region. Additional evaluation with radiographs may be obtained if clinically indicated.
== END 2019-07-14 01:44 ==
PROVIDERS: PCP Nurse Practitioner Family; Visit Provider Nurse Practitioner Family
DX: M81.0 Age-related osteoporosis without current pathological fracture (principal); Z78.0 Asymptomatic menopausal state
CPT/HCPCS: 77080

== ENCOUNTER 2019-08-19 07:59 | Outpatient (CLI) | payer MEDICARE, OTHER, SELFPAY ==
[2019-08-19 08:36] LABS: HCT 37.8 % (36.0-46.0); HGB 12.7 g/dL (12.0-15.5); Mean Corp. HGB Concentration 33.6 g/dL (32.0-36.0); Mean Corpuscular Hemoglobin 33.2 pg (27.0-33.0); Mean Platelet Volume 9.4 fL (8.0-11.0); Platelet Count 140 x1000/uL (130-400); RBC 3.82 m/cumm (4.00-5.20); RBC Distribution Width 12.9 % (11.7-14.6); White Blood Cell Count 6.05 k/cumm (4.4-10.8)
[2019-08-19 08:45] LABS: Ammonia 28 umol/L (11-32)
[2019-08-19 09:43] LABS: ALT 30 U/L (14-59); AST 35 U/L (15-37); Alkaline Phosphatase 88 U/L (46-116); Anion Gap 10.3 mmol/L (3-11); BUN 16 mg/dL (7-18); Bilirubin, Total 1.4 mg/dL (0.2-1.0); CO2 25.7 mmol/L (21.0-32.0); CREATININE 0.68 mg/dL (0.55-1.02); Calcium 9.3 mg/dL (8.5-10.1); Chloride 105 mmol/L (98-107); Glucose 113 mg/dL (74-106); Magnesium 1.4 mg/dL (1.8-2.4); Potassium 3.8 mmol/L (3.5-5.1); Sodium 141 mmol/L (136-145); Total Protein 7.1 g/dL (6.4-8.2)
== END 2019-08-19 08:19 ==
PROVIDERS: PCP Nurse Practitioner Family; Visit Provider Nurse Practitioner Family
DX: K74.60 Unspecified cirrhosis of liver (principal)
CPT/HCPCS: 36415; 80053; 85027; 82140; 83735

== ENCOUNTER 2020-04-10 12:20 | Inpatient (IN) | payer MEDICARE, OTHER, SELFPAY ==
[2020-04-10] VITALS (20 sets, daily range): BP systolic 132–164; BP diastolic 69–82; PULSE 111–124; RESP 9–21; TEMP 37.2–38; O2SAT 93–97
--- NOTE | 2020-04-10 13:00 | RT.EKG_ITS ---
APPROVED REPORT Exam: Resting ECG Patient Location: E HR:113 bpm ECG Measurements Heart Rate 113 AXIS NJ 134 P 41 QRSd 144 QRS -7 QT 380 T 22 QTc 523 Conclusion Sinus tachycardia...rate> 99 Nonspecific intraventricular conduction delay...QRSd >115mS, not LBBB/RBBB sinus tach at 113, normal axis, wide QRS at 144, nonspecific ST changes, no STEMI, nondiagnostic EKG
[2020-04-10 13:22] LABS: Abs Immature Grans 0.06 10^3/uL (0.0-0.06); Absolute Basophil Count 0.09 10^3/uL (0.0-0.2); Absolute Eosinophil Count 0.02 10^3/uL (0.0-0.7); Absolute Lymphocyte Count 0.54 10^3/uL (1.2-3.4); Absolute Monocyte Count 1.76 10^3/uL (0.1-0.8); Absolute Neutrophil Count 4.07 10^3/uL (1.2-6.7); Basophils % 1.4; Eosinophils % 0.3; HCT 34.4 % (36.0-46.0); HGB 12.2 g/dL (11.2-15.7); Immature Grans % 0.9; Lymphocytes % 8.3; MCH 35.2 pg (27.0-33.0); MCHC 35.5 % (32.0-36.0); MCV 99.1 fL (80-95); MPV 10.7 fL (8.0-11.0); Monocytes % 26.9; Neutrophils % 62.2; Nucleated RBC 0 %; RBC 3.47 10^6/uL (3.93-5.22); RDW 16.7 % (11.7-14.6); RDW-SD 60.5 fL; WBC 6.54 10^3/uL (4.4-10.8)
[2020-04-10 13:24] LABS: Lactate 7.6 mmol/L (0.6-1.4)
[2020-04-10] MEDS: Normal Saline 250 ML IV ×2 (13:25→17:56)
--- NOTE | 2020-04-10 13:30 | DI.CT_ITS ---
EXAM: CT HEAD WO CLINICAL HISTORY: confusion. TECHNIQUE: Imaging Protocol: Axial computed tomography images with coronal and sagittal reformatted images were created and reviewed COMPARISON: CT CT HEAD CERVICAL SPINE WO from 05/27/2019 FINDINGS: There is mild generalized cerebral atrophy. No evidence of acute intracranial hemorrhage, mass effect, or midline shift. The orbital structures are unremarkable. The temporal bone structures appear intact. Calvarium: Normal. Visualized Paranasal sinuses/Mastoids: Clear. IMPRESSION: Normal cranial CT except for atrophy. RADIATION DOSE DELIVERED: 638.83mGy.cm Total DLP 638.83mGy.cm Total DLP DATA REPOSITORY: All CT scans at this facility are submitted to the National Radiology Data Registry (NRDR) Dose Index Registry (DIR) with the [employer] (ACR). RADIATION OPTIMIZATION: All CT scans at this facility use at least one of these dose optimization te chniques: automated exposure control; mA and/or kV adjustment per patient size (includes targeted exa ms where dose is matched to clinical indication); or iterative reconstruction.
[2020-04-10 13:38] LABS: Diff Comment Agrees w/ Instrument
[2020-04-10 13:39] LABS: Anisocytosis 1+; Poikilocytes 2+
[2020-04-10 13:41] LABS: ALT 59 U/L (14-59); AST 205 U/L (15-37); Albumin 2.6 g/dL (3.4-5.0); Alkaline Phosphatase 154 U/L (46-116); Anion Gap 16.8 mmol/L (3-11); BUN 16 mg/dL (7-18); CO2 20.2 mmol/L (21.0-32.0); CREATININE 0.62 mg/dL (0.55-1.02); Calcium 8.9 mg/dL (8.5-10.1); Chloride 100 mmol/L (98-107); Glucose 123 mg/dL (74-106); Magnesium 1.2 mg/dL (1.8-2.4); NT-proBNP 109 pg/mL (<300); Potassium 3.6 mmol/L (3.5-5.1); Sodium 137 mmol/L (136-145); Total Protein 7.4 g/dL (6.4-8.2)
[2020-04-10 13:42] LABS: Troponin I < 0.05 ng/mL (<0.06)
[2020-04-10 13:45] LABS: TSH (W/Ref FT4) 3.52 uIU/mL (0.36-3.74)
[2020-04-10 13:57] LABS: Ammonia 55 umol/L (11-32)
[2020-04-10 14:05] LABS: Bilirubin Negative (Negative); Blood Trace-intact (Negative); Clarity Clear (Clear); Glucose Negative (Negative); Ketones Negative (Negative); Leukocyte Esterase Negative (Negative); Nitrite Negative (Negative); Specific Gravity 1.025 (1.005-1.025); pH 6.5 (5-8)
[2020-04-10 14:17] LABS: Bacteria Rare HPF (Negative); Casts 5-10 Hyaline LPF (Negative); Crystals Rare Calcium Oxalate HPF (Negative); Epithelial Cells Few HPF (Negative); Mucus Moderate (Negative); Other Cells Few Renal (Negative); RBC 0-2 HPF (0-2); WBC 0-2 HPF (0-5)
[2020-04-10 14:18] LABS: C & S Indicated? No
--- NOTE | 2020-04-10 14:47 | W.PM.HP.N ---
Date of service: 04/10/20 Time of Service: 14:47 Assessment and Plan Assessment and plan (1) Hepatic encephalopathy: Status: Acute Assessment and plan: admit to med/surg. no source of infection identified, last drank alcohol today. safety precautions, consider CT in am, consider diagnostic paracentesis, no evidence of SBP at this time. increase lactulose dosing. stool for OB, H&H is stable. (2) Alcoholic cirrhosis: Status: Acute Assessment and plan: continue spironalactone, lasix and lactulose at increased dosing. add rifaxamin. avoid hepatotoxic drugs (3) Alcohol dependence: Status: Acute Assessment and plan: ciwa protocol (4) Hypomagnesemia: Status: Acute Assessment and plan: replete and follow (5) Thrombocytopenia: Status: Chronic Assessment and plan: hold dvt prophylaxis, no active bleeding noted. chronic from ETOH/liver dysfunction (6) DVT prophylaxis: Status: Acute Assessment and plan: no pharmacologic in setting of thromcytopenia (7) Discharge planning issues: Status: Acute Assessment and plan: case management following. discussed with Dr Whitaker who is in agreement History of Present Illness Narrative: referred to ED from [facility] for altered mental status. work up in the ED most consistent with hepatic encephalopathy. No identified source of infection identified, reports she's been alcohol free for 3 weeks until today when she drank some rum. she will be admitted to hospitalist services for further management and monitoring. Review of Systems All systems reviewed & are unremarkable except as noted in HPI and below PFSH Medical History (Updated 04/11/20 @ 09:31 by Elisa Bhagat NP) Alcohol dependence Alcoholic cirrhosis CHF (congestive heart failure) Hepatic encephalopathy Hyperlipidemia Surgical History Colonoscopy - MAC (09/29/16) Social History Smoking/Tobacco Use Status: Former Tobacco Use Smoking risk assessment performed?: Yes Alcohol Intake: former Drug use: Never Substance use type: does not use Do you feel safe at home: Yes Do you feel safe in your relationship?: Yes Meds Home Medications and Allergies Home Medications Medication Instructions Recorded Confirmed Type calcium carbonate [Calcium 500] 500 mg PO 2 tabs daily 09/01/13 04/10/20 History cholecalciferol (vitamin D3) 1,000 unit PO DAILY 09/01/13 04/10/20 History epinephrine 0.3 mg IM PRN 09/01/13 04/10/20 History multivitamin [Multi-Day] 1 ea PO DAILY 09/01/13 04/10/20 History niacin 500 mg PO Q OTHER DAY 09/01/13 04/10/20 History magnesium oxide 400 mg PO DAILY 10/26/15 04/10/20 History Vitamin C 500 mg PO DAILY 08/27/16 04/10/20 History lidocaine 15 gm TOPICAL Q4H PRN #1 tube 09/24/16 04/10/20 History lisinopril 10 mg PO DAILY 09/26/16 04/10/20 History furosemide 20 mg PO DAILY 04/10/20 04/10/20 History hydroxyzine HCl 25 mg PO .QHS PRN 04/10/20 04/10/20 History lactulose 2 PO BID 04/10/20 History spironolactone 50 mg PO DAILY 04/10/20 04/10/20 History Allergies Allergy/AdvReac Type Severity Reaction Status Date / Time hydrochlorothiazide Allergy Severe Unverified 04/10/20 12:42 simvastatin Allergy Severe Kidney Unverified 04/10/20 12:42 failure venom-honey bee Allergy Severe Unverified 04/10/20 12:42 Exam Const General: disheveled, frail appearing and ill appearing chronically Nutritional Appearance: thin Orientation: alert, awake and oriented x3 HENMT Head: normal to inspection, normocephalic and atraumatic Mouth: moist mucous membranes abnormal (dry) Eyes Sclera: scleral abnormality bilaterally other (icteric) Resp Effort & Inspection: normal respiratory effort Auscultation: clear to auscultation bilaterally Cardio Rate: regular rate Rhythm: regular rhythm GI Inspection: distended Palpation: soft, not firm, no guarding, no masses, not rigid, nontender and ascites Auscultation: normal bowel sounds Skin General skin exam: jaundice Neuro General: patient alert, patient awake and moves all extremities Extrem General: no pedal edema and other (upper extremity tremors) Psych Appearance: grossly normal (older than stated age,) Mental Status: mental status grossly normal Speech and Movement: speech and movement normal Mood: congruent mood Affect: normal affect Attitude: cooperative Results Labs Result diagrams: 04/11/20 06:17 04/11/20 06:17 Labs: Laboratory Results - last 24 hr 04/10/20 04/10/20 04/10/20 13:10 13:10 13:10 WBC 6.54 RBC 3.47 L Hgb 12.2 Hct 34.4 L MCV 99.1 H MCH 35.2 H MCHC 35.5 RDW 16.7 H Plt Count MPV 10.7 Immature Gran % 0.9 Neutrophils % 62.2 Lymphocytes % 8.3 Monocytes % 26.9 Eosinophils % 0.3 Basophils % 1.4 Nucleated RBC % 0 Absolute Neutrophils 4.07 Absolute Lymphocytes 0.54 L Absolute Monocytes 1.76 H Absolute Eosinophils 0.02 Absolute Basophils 0.09 RBC Morphology See below Poikilocytosis 2+ Anisocytosis 1+ VBG Lactate 7.6 H* Sodium 137 Potassium 3.6 Chloride 100 Carbon Dioxide 20.2 L Anion Gap 16.8 H BUN 16 Creatinine 0.62 Estimated GFR/1.73 m2 >= 60.00 Glucose 123 H Calcium 8.9 Magnesium 1.2 L Total Bilirubin 6.0 H AST 205 H ALT 59 Alkaline Phosphatase 154 H Ammonia Troponin I < 0.05 NT-Pro-B Natriuret Pep 109 Total Protein 7.4 Albumin 2.6 L TSH Urine Color Urine Clarity Urine pH Ur Specific [place] Urine Protein Urine Ketones Urine Blood Urine Nitrite Urine Bilirubin Urine Urobilinogen Ur Leukocyte Esterase Urine RBC Urine WBC Ur Epithelial Cells Urine Crystals Urine Bacteria Urine Casts Urine Mucus Urine Other Ur Culture Indicated? Urine Glucose 04/10/20 04/10/20 04/10/20 13:10 13:35 13:45 WBC RBC Hgb Hct MCV MCH MCHC RDW Plt Count MPV Immature Gran % Neutrophils % Lymphocytes % Monocytes % Eosinophils % Basophils % Nucleated RBC % Absolute Neutrophils Absolute Lymphocytes Absolute Monocytes Absolute Eosinophils Absolute Basophils RBC Morphology Poikilocytosis Anisocytosis VBG Lactate Sodium Potassium Chloride Carbon Dioxide Anion Gap BUN Creatinine Estimated GFR/1.73 m2 Glucose Calcium Magnesium Total Bilirubin AST ALT Alkaline Phosphatase Ammonia 55 H Troponin I NT-Pro-B Natriuret Pep Total Protein Albumin TSH 3.52 Urine Color Moni Urine Clarity Clear Urine pH 6.5 Ur Specific [place] 1.025 Urine Protein Negative Urine Ketones Negative Urine Blood Trace-intact H Urine Nitrite Negative Urine Bilirubin Negative Urine Urobilinogen 2.0 H Ur Leukocyte Esterase Negative Urine RBC 0-2 Urine WBC 0-2 Ur Epithelial Cells Few Urine Crystals Rare calcium oxalate Urine Bacteria Rare Urine Casts 5-10 hyaline Urine Mucus Moderate Urine Other Few renal Ur Culture Indicated? No Urine Glucose Negative 04/10/20 13:52 WBC RBC Hgb Hct MCV MCH MCHC RDW Plt Count MPV Immature Gran % Neutrophils % Lymphocytes % Monocytes % Eosinophils % Basophils % Nucleated RBC % Absolute Neutrophils Absolute Lymphocytes Absolute Monocytes Absolute Eosinophils Absolute Basophils RBC Morphology Poikilocytosis Anisocytosis VBG Lactate Sodium Potassium Chloride Carbon Dioxide Anion Gap BUN Creatinine Estimated GFR/1.73 m2 Glucose Calcium Magnesium Total Bilirubin AST ALT Alkaline Phosphatase Ammonia Troponin I NT-Pro-B Natriuret Pep Total Protein Albumin TSH Urine Color Cancelled Urine Clarity Cancelled Urine pH Cancelled Ur Specific [place] Cancelled Urine Protein Cancelled Urine Ketones Cancelled Urine Blood Cancelled Urine Nitrite Cancelled Urine Bilirubin Cancelled Urine Urobilinogen Cancelled Ur Leukocyte Esterase Cancelled Urine RBC Urine WBC Ur Epithelial Cells Urine Crystals Urine Bacteria Urine Casts Urine Mucus Urine Other Ur Culture Indicated? Urine Glucose Cancelled Last Vital Signs Temp 37.2 C 04/10/20 12:31 Pulse 111 H 04/10/20 14:00 Resp 18 04/10/20 14:00 BP 145/82 H 04/10/20 14:00 Pulse Ox 96 04/10/20 14:00 COVID-19 Screening Have you,or household,traveled outside OR in last 14 days?: No Had IN PERSON contact w/suspected or confirmed C-19 person: No
--- NOTE | 2020-04-10 14:54 | ED.GENADUL_ITS ---
Discharge Plan Disposition Condition: Improving Discharge Details Chief Complaint: GenMedical Admit Date/Time: 04/10/20 14:52 Admit Provider: Gab Whitaker Attending Provider: Gab Whitaker Primary Care Provider: Anna Marie Kaplan ED Provider: Elizabeth Lugo Discharge Instructions Activity:: Activity as Tolerated Equipment/Supplies:: No Equipment Needed Diet:: Low Sodium Discharge Orders Discharge Orders: Discharge Order (Routine); Ordered 04/12/20 Ordered By: Elisa Bhagat Discharge Data Discharge Date/Time-TO BE ENTERED AT DEPARTURE: 04/10/20 16:20 Medical Decision Making Meredith Shultz is a 70 y/o woman who presented to the emergency department with mild balance problems, mild confusion, generalized weakness and shakiness over past few days. On exam Pt is non-toxic appearing. Mild tremulousness of the hands. No asterixis. No focal neuro deficit. No apparent confusion or altered mental status. Benign abdominal exam. Afebrile. Concern for metabolic/lyte disturbance, hepatic encephalopathy, other. Doubt acute coronary syndrome. Possible infectious process, unlikely, possible etoh withdrawal though doubtful based on reported hx. Exam/hx at this time not c/w SBP, meningitis, sepsis. Plan for EKG, screening labs, CT head, IVF hydration. Labs reviewed, lactate >7, WBC 6, T bili 6, Mg 1.2. Significant metabolic derangements. Plan to continue hydration, replete magnesium, admit. Pt amenable to plan. Pt reports symptoms somewhat improved on reassessment. Clinical Impression: elevated lactate, confusion. Disposition: [facility] inpt Medical Records Medical records reviewed: Yes I reviewed the patient's medical records. Imaging Data Radiologic Study: Attestation: I personally reviewed and interpreted this imaging study as follows: Radiologist's impression: EXAM: CT HEAD WO CLINICAL HISTORY: confusion. TECHNIQUE: Imaging Protocol: Axial computed tomography images with coronal and sagittal reformatted images were created and reviewed COMPARISON: CT CT HEAD CERVICAL SPINE WO from 05/27/2019 FINDINGS: There is mild generalized cerebral atrophy. No evidence of acute intracranial hemorrhage, mass effect, or midline shift. The orbital structures are unremarkable. The temporal bone structures appear intact. Calvarium: Normal. Visualized Paranasal sinuses/Mastoids: Clear. IMPRESSION: Normal cranial CT except for atrophy. Lab Data Lab results reviewed: Yes I reviewed the patient's lab results. Labs: Laboratory Tests Range/Units 04/10/20 04/10/20 04/10/20 13:10 13:10 13:10 WBC (4.4-10.8) 10^3/uL 6.54 RBC (3.93-5.22) 10^6/uL 3.47 L Hgb (11.2-15.7) g/dL 12.2 Hct (36.0-46.0) % 34.4 L MCV (80-95) fL 99.1 H MCH (27.0-33.0) pg 35.2 H MCHC (32.0-36.0) % 35.5 RDW (11.7-14.6) % 16.7 H Plt Count (130-400) 10^3/uL MPV (8.0-11.0) fL 10.7 Immature Gran % 0.9 Neutrophils % 62.2 Lymphocytes % 8.3 Monocytes % 26.9 Eosinophils % 0.3 Basophils % 1.4 Nucleated RBC % % 0 Absolute Neutrophils (1.2-6.7) 10^3/uL 4.07 Absolute Lymphocytes (1.2-3.4) 10^3/uL 0.54 L Absolute Monocytes (0.1-0.8) 10^3/uL 1.76 H Absolute Eosinophils (0.0-0.7) 10^3/uL 0.02 Absolute Basophils (0.0-0.2) 10^3/uL 0.09 RBC Morphology See below Poikilocytosis 2+ Anisocytosis 1+ VBG Lactate (0.6-1.4) mmol/L 7.6 H* Sodium (136-145) mmol/L 137 Potassium (3.5-5.1) mmol/L 3.6 Chloride (98-107) mmol/L 100 Carbon Dioxide (21.0-32.0) mmol/L 20.2 L Anion Gap (3-11) mmol/L 16.8 H BUN (7-18) mg/dL 16 Creatinine (0.55-1.02) mg/dL 0.62 Estimated GFR/1.73 m2 (mL/min/1.73m2) >= 60.00 Glucose (74-106) mg/dL 123 H Calcium (8.5-10.1) mg/dL 8.9 Magnesium (1.8-2.4) mg/dL 1.2 L Total Bilirubin (0.2-1.0) mg/dL 6.0 H AST (15-37) U/L 205 H ALT (14-59) U/L 59 Alkaline Phosphatase (46-116) U/L 154 H Ammonia (11-32) umol/L Troponin I (<0.06) ng/mL < 0.05 NT-Pro-B Natriuret Pep (<300) pg/mL 109 Total Protein (6.4-8.2) g/dL 7.4 Albumin (3.4-5.0) g/dL 2.6 L TSH (0.36-3.74) uIU/mL Urine Color (Yellow) Urine Clarity (Clear) Urine pH (5-8) Ur Specific [place] (1.005-1.025) Urine Protein (Negative) mg/dL Urine Ketones (Negative) mg/dL Urine Blood (Negative) Urine Nitrite (Negative) Urine Bilirubin (Negative) Urine Urobilinogen (Up TO 0.2) EU/dL Ur Leukocyte Esterase (Negative) Urine RBC (0-2) HPF Urine WBC (0-5) HPF Ur Epithelial Cells (Negative) HPF Urine Crystals (Negative) HPF Urine Bacteria (Negative) HPF Urine Casts (Negative) LPF Urine Mucus (Negative) Urine Other (Negative) Ur Culture Indicated? Urine Glucose (Negative) mg/dL Range/Units 04/10/20 04/10/20 04/10/20 13:10 13:35 13:45 WBC (4.4-10.8) 10^3/uL RBC (3.93-5.22) 10^6/uL Hgb (11.2-15.7) g/dL Hct (36.0-46.0) % MCV (80-95) fL MCH (27.0-33.0) pg MCHC (32.0-36.0) % RDW (11.7-14.6) % Plt Count (130-400) 10^3/uL MPV (8.0-11.0) fL Immature Gran % Neutrophils % Lymphocytes % Monocytes % Eosinophils % Basophils % Nucleated RBC % % Absolute Neutrophils (1.2-6.7) 10^3/uL Absolute Lymphocytes (1.2-3.4) 10^3/uL Absolute Monocytes (0.1-0.8) 10^3/uL Absolute Eosinophils (0.0-0.7) 10^3/uL Absolute Basophils (0.0-0.2) 10^3/uL RBC Morphology Poikilocytosis Anisocytosis VBG Lactate (0.6-1.4) mmol/L Sodium (136-145) mmol/L Potassium (3.5-5.1) mmol/L Chloride (98-107) mmol/L Carbon Dioxide (21.0-32.0) mmol/L Anion Gap (3-11) mmol/L BUN (7-18) mg/dL Creatinine (0.55-1.02) mg/dL Estimated GFR/1.73 m2 (mL/min/1.73m2) Glucose (74-106) mg/dL Calcium (8.5-10.1) mg/dL Magnesium (1.8-2.4) mg/dL Total Bilirubin (0.2-1.0) mg/dL AST (15-37) U/L ALT (14-59) U/L Alkaline Phosphatase (46-116) U/L Ammonia (11-32) umol/L 55 H Troponin I (<0.06) ng/mL NT-Pro-B Natriuret Pep (<300) pg/mL Total Protein (6.4-8.2) g/dL Albumin (3.4-5.0) g/dL TSH (0.36-3.74) uIU/mL 3.52 Urine Color (Yellow) Moni Urine Clarity (Clear) Clear Urine pH (5-8) 6.5 Ur Specific [place] (1.005-1.025) 1.025 Urine Protein (Negative) mg/dL Negative Urine Ketones (Negative) mg/dL Negative Urine Blood (Negative) Trace-intact H Urine Nitrite (Negative) Negative Urine Bilirubin (Negative) Negative Urine Urobilinogen (Up TO 0.2) EU/dL 2.0 H Ur Leukocyte Esterase (Negative) Negative Urine RBC (0-2) HPF 0-2 Urine WBC (0-5) HPF 0-2 Ur Epithelial Cells (Negative) HPF Few Urine Crystals (Negative) HPF Rare calcium oxalate Urine Bacteria (Negative) HPF Rare Urine Casts (Negative) LPF 5-10 hyaline Urine Mucus (Negative) Moderate Urine Other (Negative) Few renal Ur Culture Indicated? No Urine Glucose (Negative) mg/dL Negative Range/Units 04/10/20 13:52 WBC (4.4-10.8) 10^3/uL RBC (3.93-5.22) 10^6/uL Hgb (11.2-15.7) g/dL Hct (36.0-46.0) % MCV (80-95) fL MCH (27.0-33.0) pg MCHC (32.0-36.0) % RDW (11.7-14.6) % Plt Count (130-400) 10^3/uL MPV (8.0-11.0) fL Immature Gran % Neutrophils % Lymphocytes % Monocytes % Eosinophils % Basophils % Nucleated RBC % % Absolute Neutrophils (1.2-6.7) 10^3/uL Absolute Lymphocytes (1.2-3.4) 10^3/uL Absolute Monocytes (0.1-0.8) 10^3/uL Absolute Eosinophils (0.0-0.7) 10^3/uL Absolute Basophils (0.0-0.2) 10^3/uL RBC Morphology Poikilocytosis Anisocytosis VBG Lactate (0.6-1.4) mmol/L Sodium (136-145) mmol/L Potassium (3.5-5.1) mmol/L Chloride (98-107) mmol/L Carbon Dioxide (21.0-32.0) mmol/L Anion Gap (3-11) mmol/L BUN (7-18) mg/dL Creatinine (0.55-1.02) mg/dL Estimated GFR/1.73 m2 (mL/min/1.73m2) Glucose (74-106) mg/dL Calcium (8.5-10.1) mg/dL Magnesium (1.8-2.4) mg/dL Total Bilirubin (0.2-1.0) mg/dL AST (15-37) U/L ALT (14-59) U/L Alkaline Phosphatase (46-116) U/L Ammonia (11-32) umol/L Troponin I (<0.06) ng/mL NT-Pro-B Natriuret Pep (<300) pg/mL Total Protein (6.4-8.2) g/dL Albumin (3.4-5.0) g/dL TSH (0.36-3.74) uIU/mL Urine Color (Yellow) Cancelled Urine Clarity (Clear) Cancelled Urine pH (5-8) Cancelled Ur Specific [place] (1.005-1.025) Cancelled Urine Protein (Negative) mg/dL Cancelled Urine Ketones (Negative) mg/dL Cancelled Urine Blood (Negative) Cancelled Urine Nitrite (Negative) Cancelled Urine Bilirubin (Negative) Cancelled Urine Urobilinogen (Up TO 0.2) EU/dL Cancelled Ur Leukocyte Esterase (Negative) Cancelled Urine RBC (0-2) HPF Urine WBC (0-5) HPF Ur Epithelial Cells (Negative) HPF Urine Crystals (Negative) HPF Urine Bacteria (Negative) HPF Urine Casts (Negative) LPF Urine Mucus (Negative) Urine Other (Negative) Ur Culture Indicated? Urine Glucose (Negative) mg/dL Cancelled ECG Data Attestation: I personally reviewed and interpreted this ECG (s) as follows: Interpretation: EKG shows sinus tach at 113, normal axis, wide QRS at 144, nonspecific ST changes, no STEMI, nondiagnostic EKG HPI General Date/Time Provider Initiated Documentation: 04/10/20 12:21 . Limitations to Documentation: no limitations . Information obtained by: patient, family, RN notes reviewed and old records reviewed . HPI Narrative: Meredith Shultz is a 60-year-old woman with a history of CHF, alcoholic cirrhosis, hyperlipidemia, alcohol abuse presenting to the emergency department with balance problems, confusion. Pt is accompanied by her who also provides the history. Pt reports that she is typically a heavy alcohol drinker, stopped drinking 3 weeks ago until this morning when she had a little rum. Pt reports that she has been feeling mildly unwell for the past few days, shakey and generally weak. Pt's reports that at times in the past few days she has seemed to be off balance. No falls. He also reports that she has been mildly confused at times. He reports that Pt has had somewhat similar symptoms intermittently in the past, but now worse. Pt states that she does not feel as though she is alcohol withdrawal. She reports diarrhea, attributes to lactulose. Denies pain, fevers, vomiting, numbness, focal weakness, rash. States decreased appetite for past few days. Related Data Home Medications Medication Instructions Recorded Confirmed calcium carbonate [Calcium 500] 500 mg PO 2 tabs daily 09/01/13 04/10/20 cholecalciferol (vitamin D3) 1,000 unit PO DAILY 09/01/13 04/10/20 epinephrine 0.3 mg IM PRN 09/01/13 04/10/20 multivitamin [Multi-Day] 1 ea PO DAILY 09/01/13 04/10/20 niacin 500 mg PO Q OTHER DAY 09/01/13 04/10/20 magnesium oxide 400 mg PO DAILY 10/26/15 04/10/20 Vitamin C 500 mg PO DAILY 08/27/16 04/10/20 lidocaine 15 gm TOPICAL Q4H PRN #1 tube 09/24/16 04/10/20 lisinopril 10 mg PO DAILY 09/26/16 04/10/20 furosemide 20 mg PO DAILY 04/10/20 04/10/20 hydroxyzine HCl 25 mg PO .QHS PRN 04/10/20 04/10/20 spironolactone 50 mg PO DAILY 04/10/20 04/10/20 lactulose 20 g PO TID #0 ml 04/12/20 Previous Rx's Medication Instructions Recorded lactulose 20 g PO TID #0 ml 04/12/20 Allergies Allergy/AdvReac Type Severity Reaction Status Date / Time hydrochlorothiazide Allergy Severe Unverified 04/10/20 12:42 simvastatin Allergy Severe Kidney Unverified 04/10/20 12:42 failure venom-honey bee Allergy Severe Unverified 04/10/20 12:42 General Stated Complaint: GenMedical KARTHIK: 2 Review of Systems Narrative: Constitutional: denies fevers, reports decreased appetite, fatigue, generalized weakness Eyes: denies eye pain ENT: denies ear pain, dental pain, sore throat Cardiovascular: denies chest pain, edema Respiratory: denies SOB, cough GI: denies abdominal pain, vomiting, diarrhea : denies flank pain MSK: denies back pain, neck pain, arthralgias, myalgias Skin: denies rash Neuro: denies headaches, numbness, focal weakness, reports tremulousness PFSH Medical History Alcohol dependence Alcoholic cirrhosis CHF (congestive heart failure) Hepatic encephalopathy Hyperlipidemia Surgical History Colonoscopy - MAC (09/29/16) Social History Smoking/Tobacco Use Status: Former Tobacco Use Smoking risk assessment performed?: Yes Alcohol Intake: former Drug use: Never Substance use type: does not use Do you feel safe at home: Yes Do you feel safe in your relationship?: Yes Exam Narrative Exam Narrative: Constitutional: well and [id number], pleasant, conversing normally HENT: head atraumatic/normocephalic/normal inspection, mucous membranes moist Eyes: conjunctiva normal, sclera normal, pupils 3mm b/l Neck: no stridor, normal ROM, trachea midline Chest: normal inspection Resp: normal work of breathing, speaking in full sentences Cardio: normal rate, normal rhythm GI: abdomen soft, non-tender, non-distended Back: normal inspection, no rash Skin: warm, dry, normal color, no rash Neuro: alert & oriented x3, not altered, grossly non-focal, normal tone, mild tremor of the upper extremities, no asterixis Ext: no edema Psych: normal mood, normal affect, normal behavior Course Vital Signs Vital signs: Vital Signs Temperature 37.2 C 04/10/20 12:31 Pulse 118 H 04/10/20 12:31 Respiratory Rate 16 04/10/20 12:31 Blood Pressure 164/75 H 04/10/20 12:31 Pulse Oximetry 96 04/10/20 12:31 Temperature 37.2 C 04/10/20 12:31 Temperature Source Oral 04/10/20 12:31 Pulse 111 H 04/10/20 14:00 Pulse 115 H 04/10/20 14:00 Respiratory Rate 18 04/10/20 14:00 Respiratory Effort Non-Labored 04/10/20 13:53 Respiratory Depth Normal 04/10/20 13:53 Respiratory Pattern Normal 04/10/20 13:53 Blood Pressure 145/82 H 04/10/20 14:00 Blood Pressure Mean 98 04/10/20 14:00 Blood Pressure Position Sitting 04/10/20 12:31 Pulse Oximetry 96 04/10/20 14:00 Oxygen Delivery Method Room Air 04/10/20 12:31 Oxygen Flow Rate 0 04/10/20 12:31 Pain Level 0 04/10/20 12:31 Lab/Test Results Lab/Test Results: Laboratory Tests Range/Units 04/10/20 04/10/20 04/10/20 13:10 13:10 13:10 WBC (4.4-10.8) 10^3/uL 6.54 RBC (3.93-5.22) 10^6/uL 3.47 L Hgb (11.2-15.7) g/dL 12.2 Hct (36.0-46.0) % 34.4 L MCV (80-95) fL 99.1 H MCH (27.0-33.0) pg 35.2 H MCHC (32.0-36.0) % 35.5 RDW (11.7-14.6) % 16.7 H Plt Count (130-400) 10^3/uL MPV (8.0-11.0) fL 10.7 Immature Gran % 0.9 Neutrophils % 62.2 Lymphocytes % 8.3 Monocytes % 26.9 Eosinophils % 0.3 Basophils % 1.4 Nucleated RBC % % 0 Absolute Neutrophils (1.2-6.7) 10^3/uL 4.07 Absolute Lymphocytes (1.2-3.4) 10^3/uL 0.54 L Absolute Monocytes (0.1-0.8) 10^3/uL 1.76 H Absolute Eosinophils (0.0-0.7) 10^3/uL 0.02 Absolute Basophils (0.0-0.2) 10^3/uL 0.09 RBC Morphology See below Poikilocytosis 2+ Anisocytosis 1+ VBG Lactate (0.6-1.4) mmol/L 7.6 H* Sodium (136-145) mmol/L 137 Potassium (3.5-5.1) mmol/L 3.6 Chloride (98-107) mmol/L 100 Carbon Dioxide (21.0-32.0) mmol/L 20.2 L Anion Gap (3-11) mmol/L 16.8 H BUN (7-18) mg/dL 16 Creatinine (0.55-1.02) mg/dL 0.62 Estimated GFR/1.73 m2 (mL/min/1.73m2) >= 60.00 Glucose (74-106) mg/dL 123 H Calcium (8.5-10.1) mg/dL 8.9 Magnesium (1.8-2.4) mg/dL 1.2 L Total Bilirubin (0.2-1.0) mg/dL 6.0 H AST (15-37) U/L 205 H ALT (14-59) U/L 59 Alkaline Phosphatase (46-116) U/L 154 H Ammonia (11-32) umol/L Troponin I (<0.06) ng/mL < 0.05 NT-Pro-B Natriuret Pep (<300) pg/mL 109 Total Protein (6.4-8.2) g/dL 7.4 Albumin (3.4-5.0) g/dL 2.6 L TSH (0.36-3.74) uIU/mL Urine Color (Yellow) Urine Clarity (Clear) Urine pH (5-8) Ur Specific [place] (1.005-1.025) Urine Protein (Negative) mg/dL Urine Ketones (Negative) mg/dL Urine Blood (Negative) Urine Nitrite (Negative) Urine Bilirubin (Negative) Urine Urobilinogen (Up TO 0.2) EU/dL Ur Leukocyte Esterase (Negative) Urine RBC (0-2) HPF Urine WBC (0-5) HPF Ur Epithelial Cells (Negative) HPF Urine Crystals (Negative) HPF Urine Bacteria (Negative) HPF Urine Casts (Negative) LPF Urine Mucus (Negative) Urine Other (Negative) Ur Culture Indicated? Urine Glucose (Negative) mg/dL Range/Units 04/10/20 04/10/20 04/10/20 13:10 13:35 13:45 WBC (4.4-10.8) 10^3/uL RBC (3.93-5.22) 10^6/uL Hgb (11.2-15.7) g/dL Hct (36.0-46.0) % MCV (80-95) fL MCH (27.0-33.0) pg MCHC (32.0-36.0) % RDW (11.7-14.6) % Plt Count (130-400) 10^3/uL MPV (8.0-11.0) fL Immature Gran % Neutrophils % Lymphocytes % Monocytes % Eosinophils % Basophils % Nucleated RBC % % Absolute Neutrophils (1.2-6.7) 10^3/uL Absolute Lymphocytes (1.2-3.4) 10^3/uL Absolute Monocytes (0.1-0.8) 10^3/uL Absolute Eosinophils (0.0-0.7) 10^3/uL Absolute Basophils (0.0-0.2) 10^3/uL RBC Morphology Poikilocytosis Anisocytosis VBG Lactate (0.6-1.4) mmol/L Sodium (136-145) mmol/L Potassium (3.5-5.1) mmol/L Chloride (98-107) mmol/L Carbon Dioxide (21.0-32.0) mmol/L Anion Gap (3-11) mmol/L BUN (7-18) mg/dL Creatinine (0.55-1.02) mg/dL Estimated GFR/1.73 m2 (mL/min/1.73m2) Glucose (74-106) mg/dL Calcium (8.5-10.1) mg/dL Magnesium (1.8-2.4) mg/dL Total Bilirubin (0.2-1.0) mg/dL AST (15-37) U/L ALT (14-59) U/L Alkaline Phosphatase (46-116) U/L Ammonia (11-32) umol/L 55 H Troponin I (<0.06) ng/mL NT-Pro-B Natriuret Pep (<300) pg/mL Total Protein (6.4-8.2) g/dL Albumin (3.4-5.0) g/dL TSH (0.36-3.74) uIU/mL 3.52 Urine Color (Yellow) Moni Urine Clarity (Clear) Clear Urine pH (5-8) 6.5 Ur Specific [place] (1.005-1.025) 1.025 Urine Protein (Negative) mg/dL Negative Urine Ketones (Negative) mg/dL Negative Urine Blood (Negative) Trace-intact H Urine Nitrite (Negative) Negative Urine Bilirubin (Negative) Negative Urine Urobilinogen (Up TO 0.2) EU/dL 2.0 H Ur Leukocyte Esterase (Negative) Negative Urine RBC (0-2) HPF 0-2 Urine WBC (0-5) HPF 0-2 Ur Epithelial Cells (Negative) HPF Few Urine Crystals (Negative) HPF Rare calcium oxalate Urine Bacteria (Negative) HPF Rare Urine Casts (Negative) LPF 5-10 hyaline Urine Mucus (Negative) Moderate Urine Other (Negative) Few renal Ur Culture Indicated? No Urine Glucose (Negative) mg/dL Negative Range/Units 04/10/20 13:52 WBC (4.4-10.8) 10^3/uL RBC (3.93-5.22) 10^6/uL Hgb (11.2-15.7) g/dL Hct (36.0-46.0) % MCV (80-95) fL MCH (27.0-33.0) pg MCHC (32.0-36.0) % RDW (11.7-14.6) % Plt Count (130-400) 10^3/uL MPV (8.0-11.0) fL Immature Gran % Neutrophils % Lymphocytes % Monocytes % Eosinophils % Basophils % Nucleated RBC % % Absolute Neutrophils (1.2-6.7) 10^3/uL Absolute Lymphocytes (1.2-3.4) 10^3/uL Absolute Monocytes (0.1-0.8) 10^3/uL Absolute Eosinophils (0.0-0.7) 10^3/uL Absolute Basophils (0.0-0.2) 10^3/uL RBC Morphology Poikilocytosis Anisocytosis VBG Lactate (0.6-1.4) mmol/L Sodium (136-145) mmol/L Potassium (3.5-5.1) mmol/L Chloride (98-107) mmol/L Carbon Dioxide (21.0-32.0) mmol/L Anion Gap (3-11) mmol/L BUN (7-18) mg/dL Creatinine (0.55-1.02) mg/dL Estimated GFR/1.73 m2 (mL/min/1.73m2) Glucose (74-106) mg/dL Calcium (8.5-10.1) mg/dL Magnesium (1.8-2.4) mg/dL Total Bilirubin (0.2-1.0) mg/dL AST (15-37) U/L ALT (14-59) U/L Alkaline Phosphatase (46-116) U/L Ammonia (11-32) umol/L Troponin I (<0.06) ng/mL NT-Pro-B Natriuret Pep (<300) pg/mL Total Protein (6.4-8.2) g/dL Albumin (3.4-5.0) g/dL TSH (0.36-3.74) uIU/mL Urine Color (Yellow) Cancelled Urine Clarity (Clear) Cancelled Urine pH (5-8) Cancelled Ur Specific [place] (1.005-1.025) Cancelled Urine Protein (Negative) mg/dL Cancelled Urine Ketones (Negative) mg/dL Cancelled Urine Blood (Negative) Cancelled Urine Nitrite (Negative) Cancelled Urine Bilirubin (Negative) Cancelled Urine Urobilinogen (Up TO 0.2) EU/dL Cancelled Ur Leukocyte Esterase (Negative) Cancelled Urine RBC (0-2) HPF Urine WBC (0-5) HPF Ur Epithelial Cells (Negative) HPF Urine Crystals (Negative) HPF Urine Bacteria (Negative) HPF Urine Casts (Negative) LPF Urine Mucus (Negative) Urine Other (Negative) Ur Culture Indicated? Urine Glucose (Negative) mg/dL Cancelled
[2020-04-10] MEDS: MAGNESIUM SULFATE 2 GM/50 ML BAG IVPB (15:02)
--- NOTE | 2020-04-10 15:45 | RT.EKG_ITS ---
APPROVED REPORT Exam: Resting ECG Patient Location: E HR:117 bpm ECG Measurements Heart Rate 117 AXIS MI 147 P 51 QRSd 80 QRS 6 QT 348 T 31 QTc 484 Conclusion Sinus tachycardia...rate> 99. Less than 1mm ST depression in I, II, aVL, V4-6. No STEMI. No significant change from previous.
[2020-04-10 16:53] LABS: Troponin I < 0.05 ng/mL (<0.06)
[2020-04-10] MEDS: Lactulose 20 GM/30 ML CUP 30 GM PO (20:38)
[2020-04-10] MEDS: Rifaximin 550 MG TAB PO (20:40)
[2020-04-11 06:28] LABS: Abs Immature Grans 0.04 10^3/uL (0.0-0.06); Absolute Basophil Count 0.07 10^3/uL (0.0-0.2); Absolute Eosinophil Count 0.03 10^3/uL (0.0-0.7); Absolute Lymphocyte Count 0.64 10^3/uL (1.2-3.4); Absolute Neutrophil Count 4.25 10^3/uL (1.2-6.7); Eosinophils % 0.4; HCT 33.8 % (36.0-46.0); HGB 12.2 g/dL (11.2-15.7); Immature Grans % 0.6; Lymphocytes % 9.1; MCH 35.8 pg (27.0-33.0); MCHC 36.1 % (32.0-36.0); MCV 99.1 fL (80-95); MPV 11.7 fL (8.0-11.0); Monocytes % 28.4; Neutrophils % 60.5; Nucleated RBC 0 %; RBC 3.41 10^6/uL (3.93-5.22); RDW 16.7 % (11.7-14.6); RDW-SD 60.5 fL; WBC 7.03 10^3/uL (4.4-10.8)
[2020-04-11 06:40] LABS: Ammonia 55 umol/L (11-32)
[2020-04-11 06:42] LABS: ALT 57 U/L (14-59); AST 163 U/L (15-37); Albumin 2.4 g/dL (3.4-5.0); Alkaline Phosphatase 154 U/L (46-116); Anion Gap 9.2 mmol/L (3-11); BUN 14 mg/dL (7-18); Bilirubin, Total 7.1 mg/dL (0.2-1.0); CO2 25.8 mmol/L (21.0-32.0); CREATININE 0.67 mg/dL (0.55-1.02); Calcium 8.7 mg/dL (8.5-10.1); Chloride 102 mmol/L (98-107); Glucose 138 mg/dL (74-106); Magnesium 1.4 mg/dL (1.8-2.4); Potassium 3.4 mmol/L (3.5-5.1); Sodium 137 mmol/L (136-145)
[2020-04-11 07:03] LABS: Diff Comment Agrees w/ Instrument; Platelet Count 50 10^3/uL (130-400)
[2020-04-11 07:04] LABS: Polychromasia Present
[2020-04-11 07:05] LABS: Poikilocytes 2+
[2020-04-11 08:10] VITALS: BP 155/75; PULSE 108; RESP 19; TEMP 37.1; O2SAT 96
[2020-04-11 08:20] VITALS: O2SAT 96
[2020-04-11] MEDS: Lactulose 20 GM/30 ML CUP 30 GM PO ×2 (08:22→12:26)
[2020-04-11] MEDS: Magnesium Oxide 400 MG TAB PO (08:22)
[2020-04-11] MEDS: Spironolactone 50 MG TAB PO (08:22)
[2020-04-11] MEDS: Lisinopril 10 MG TAB PO (08:23)
[2020-04-11] MEDS: Rifaximin 550 MG TAB PO ×2 (08:23→19:14)
[2020-04-11] MEDS: Furosemide 20 MG TAB PO (08:24)
[2020-04-11] MEDS: Calcium Carbonate 1.25 GM TAB 2.5 GM PO (08:24)
[2020-04-11] MEDS: Ascorbic Acid 500 MG TAB PO (08:24)
[2020-04-11] MEDS: Multivitamin TAB 1 TAB PO (08:24)
[2020-04-11] MEDS: LORazepam 1 MG TAB PO/SL ×2 (08:25→19:30)
[2020-04-11] MEDS: Cholecalciferol (Vitamin D3) 1,000 UNIT TAB 1000 UNITS PO (08:25)
--- NOTE | 2020-04-11 09:09 | PGE_ITS ---
Date of Service Date of service: 04/11/20 Time of Service: 09:09 Assessment and Plan Assessment and plan (1) Hepatic encephalopathy: Status: Acute Assessment and plan: improved significantly since admissions 2 BM on nights, 1 was hem positive, 1 negative. H&H is stable. now having bloody stools. will decrease lactulose, recheck H&H at 1800 continue safety precautions, consider CT, consider diagnostic paracentesis, no evidence of SBP at this time. continue lactulose 30 gm now BID (2) Alcoholic cirrhosis: Status: Acute Assessment and plan: continue spironalactone, lasix and lactulose at increased dosing. add rifaxamin. avoid hepatotoxic drugs data recovery planner consulted. (3) Alcohol dependence: Status: Acute Assessment and plan: ciwa protocol (4) Hypomagnesemia: Status: Acute Assessment and plan: replete and follow (5) Thrombocytopenia: Status: Chronic Assessment and plan: hold dvt prophylaxis, no active bleeding noted. ch ronic from ETOH/liver dysfunction (6) DVT prophylaxis: Status: Acute Assessment and plan: no pharmacologic in setting of thromcytopenia (7) Discharge planning issues: Status: Acute Assessment and plan: case management following. discussed with Dr Whitaker who is in agreement Subjective Subjective Patient reports: afebrile Interval history since last seen: reports vomiting lactulose, scoring 4 on CIWA last night. no other c/o. no abdominal pain Objective Last Vital Signs Temp 37.1 C 04/11/20 08:10 Pulse 108 H 04/11/20 08:10 Resp 19 04/11/20 08:10 BP 155/75 H 04/11/20 08:10 Pulse Ox 96 04/11/20 08:20 Laboratory Results - last 24 hr 04/10/20 04/10/20 04/10/20 13:10 13:10 13:10 WBC 6.54 RBC 3.47 L Hgb 12.2 Hct 34.4 L MCV 99.1 H MCH 35.2 H MCHC 35.5 RDW 16.7 H Plt Count MPV 10.7 Immature Gran % 0.9 Neutrophils % 62.2 Lymphocytes % 8.3 Monocytes % 26.9 Eosinophils % 0.3 Basophils % 1.4 Nucleated RBC % 0 Absolute Neutrophils 4.07 Absolute Lymphocytes 0.54 L Absolute Monocytes 1.76 H Absolute Eosinophils 0.02 Absolute Basophils 0.09 RBC Morphology See below Polychromasia Poikilocytosis 2+ Anisocytosis 1+ VBG Lactate 7.6 H* Sodium 137 Potassium 3.6 Chloride 100 Carbon Dioxide 20.2 L Anion Gap 16.8 H BUN 16 Creatinine 0.62 Estimated GFR/1.73 m2 >= 60.00 Glucose 123 H Calcium 8.9 Magnesium 1.2 L Total Bilirubin 6.0 H AST 205 H ALT 59 Alkaline Phosphatase 154 H Ammonia Troponin I < 0.05 NT-Pro-B Natriuret Pep 109 Total Protein 7.4 Albumin 2.6 L TSH Urine Color Urine Clarity Urine pH Ur Specific [place] Urine Protein Urine Ketones Urine Blood Urine Nitrite Urine Bilirubin Urine Urobilinogen Ur Leukocyte Esterase Urine RBC Urine WBC Ur Epithelial Cells Urine Crystals Urine Bacteria Urine Casts Urine Mucus Urine Other Ur Culture Indicated? Urine Glucose 04/10/20 04/10/20 04/10/20 13:10 13:35 13:45 WBC RBC Hgb Hct MCV MCH MCHC RDW Plt Count MPV Immature Gran % Neutrophils % Lymphocytes % Monocytes % Eosinophils % Basophils % Nucleated RBC % Absolute Neutrophils Absolute Lymphocytes Absolute Monocytes Absolute Eosinophils Absolute Basophils RBC Morphology Polychromasia Poikilocytosis Anisocytosis VBG Lactate Sodium Potassium Chloride Carbon Dioxide Anion Gap BUN Creatinine Estimated GFR/1.73 m2 Glucose Calcium Magnesium Total Bilirubin AST ALT Alkaline Phosphatase Ammonia 55 H Troponin I NT-Pro-B Natriuret Pep Total Protein Albumin TSH 3.52 Urine Color Moni Urine Clarity Clear Urine pH 6.5 Ur Specific [place] 1.025 Urine Protein Negative Urine Ketones Negative Urine Blood Trace-intact H Urine Nitrite Negative Urine Bilirubin Negative Urine Urobilinogen 2.0 H Ur Leukocyte Esterase Negative Urine RBC 0-2 Urine WBC 0-2 Ur Epithelial Cells Few Urine Crystals Rare calcium oxalate Urine Bacteria Rare Urine Casts 5-10 hyaline Urine Mucus Moderate Urine Other Few renal Ur Culture Indicated? No Urine Glucose Negative 04/10/20 04/10/20 04/11/20 13:52 16:12 06:17 WBC RBC Hgb Hct MCV MCH MCHC RDW Plt Count MPV Immature Gran % Neutrophils % Lymphocytes % Monocytes % Eosinophils % Basophils % Nucleated RBC % Absolute Neutrophils Absolute Lymphocytes Absolute Monocytes Absolute Eosinophils Absolute Basophils RBC Morphology Polychromasia Poikilocytosis Anisocytosis VBG Lactate Sodium 137 Potassium 3.4 L Chloride 102 Carbon Dioxide 25.8 Anion Gap 9.2 BUN 14 Creatinine 0.67 Estimated GFR/1.73 m2 >= 60.00 Glucose 138 H Calcium 8.7 Magnesium 1.4 L Total Bilirubin 7.1 H AST 163 H ALT 57 Alkaline Phosphatase 154 H Ammonia Troponin I < 0.05 NT-Pro-B Natriuret Pep Total Protein 7.0 Albumin 2.4 L TSH Urine Color Cancelled Urine Clarity Cancelled Urine pH Cancelled Ur Specific [place] Cancelled Urine Protein Cancelled Urine Ketones Cancelled Urine Blood Cancelled Urine Nitrite Cancelled Urine Bilirubin Cancelled Urine Urobilinogen Cancelled Ur Leukocyte Esterase Cancelled Urine RBC Urine WBC Ur Epithelial Cells Urine Crystals Urine Bacteria Urine Casts Urine Mucus Urine Other Ur Culture Indicated? Urine Glucose Cancelled 04/11/20 04/11/20 06:17 06:17 WBC 7.03 RBC 3.41 L Hgb 12.2 Hct 33.8 L MCV 99.1 H MCH 35.8 H MCHC 36.1 H RDW 16.7 H Plt Count 50 L MPV 11.7 H Immature Gran % 0.6 Neutrophils % 60.5 Lymphocytes % 9.1 Monocytes % 28.4 Eosinophils % 0.4 Basophils % 1.0 Nucleated RBC % 0 Absolute Neutrophils 4.25 Absolute Lymphocytes 0.64 L Absolute Monocytes 2.00 H Absolute Eosinophils 0.03 Absolute Basophils 0.07 RBC Morphology See below Polychromasia Present Poikilocytosis 2+ Anisocytosis VBG Lactate Sodium Potassium Chloride Carbon Dioxide Anion Gap BUN Creatinine Estimated GFR/1.73 m2 Glucose Calcium Magnesium Total Bilirubin AST ALT Alkaline Phosphatase Ammonia 55 H Troponin I NT-Pro-B Natriuret Pep Total Protein Albumin TSH Urine Color Urine Clarity Urine pH Ur Specific [place] Urine Protein Urine Ketones Urine Blood Urine Nitrite Urine Bilirubin Urine Urobilinogen Ur Leukocyte Esterase Urine RBC Urine WBC Ur Epithelial Cells Urine Crystals Urine Bacteria Urine Casts Urine Mucus Urine Other Ur Culture Indicated? Urine Glucose
[2020-04-11] MEDS: POTASSIUM CHLORIDE 10 MEQ/100 ML BAG 100 MEQ IVPB ×2 (09:50→12:26)
[2020-04-11] MEDS: MAGNESIUM SULFATE 4 GM/100 ML BAG IVPB (09:50)
--- NOTE | 2020-04-11 15:22 | INITIAL_ITS ---
- If Service Date Differs Date of service: 04/11/20 Time of Service: 15:22 Care Management Initial Assess REASON FOR HOSPITALIZATION:: Hepatic Enecephalopathy PAST MEDICAL HISTORY/PAST SURGICAL HISTORY:: Seizure disorder, cholecytitis, CHF, alcoholic cirrhosis, alcohol dependency, thrombocytopenia. PREVIOUS FUNCTIONAL STATUS/SOCIAL/FAMILY SUPPORTS:: Meredith lives with her Tyree in [place], [place]. She is independent at baseline her spouse is present and appears supportive. She states she uses alcohol and is aware that she is dependent. Her spouse also uses alcohol and admits that he has been cutting back as well from 6 drinks a day down to two or three. CURRENT FUNCTIONAL STATUS:: Meredith is sitting up in the chair she is alert and engaged during assessment. CM offered a elementary instructional coach. ADVANCE DIRECTIVES:: On file per the patient CM Has patient been provided with info about the portal/API?: Yes Did the patient sign up for the portal?: No CODE STATUS:: Full Code INSURANCE COVERAGE / FINANCIAL ISSUES:: Medicare and [employer] CURRENT HOME/COMMUNITY SERVICES/EQUIPMENT:: Meredith does not currently have services she is willing to talk with a elementary instructional coach. She states she has met with them in the past and once COVID precautions started she was unable to continue to meet with them. She tried over the phone however she was unable to understand the person over the phone. PRIMARY CARE PHYSICIAN:: Nohemy Raines [facility] POTENTIAL DISCHARGE NEEDS:: Follow up with pcp, ongoing substance dependency services. PATIENT/FAMILY EDUCATION NEEDS:: Discharge education, limitations and follow up plan of care including ask me three and self management ANTICIPATED BARRIERS TO DISCHARGE:: None TRANSPORTATION:: Via private car with spouse at time of discharge PLAN:: Meredith is currently acute awaiting for her mentation to clear. She is having heme positive stools, provider continues to closely monitor her Hgb and Hct. She will be discharged when medically ready per provider. CM to offer community referrals to assist with sobriety. She is agreeable to elementary instructional coach. CM paged elementary instructional coach at [phone] and spoke with Juanjose who will contact patient directly to provide support.
--- NOTE | 2020-04-11 15:27 | CHAPLAIN ---
Meredith was sitting up in her chair when I visited, and she had a visitor (?) with her. 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 I explained my role and offered support.
[2020-04-11 15:44] VITALS: BP 125/67; PULSE 104; RESP 17; TEMP 36.8; O2SAT 96
[2020-04-11] MEDS: Normal Saline Flush 10 ML SYR IVP (19:15)
[2020-04-11] MEDS: Pantoprazole 40 MG VIAL IVP (19:15)
[2020-04-11 20:13] LABS: HCT 32.1 % (36.0-46.0); HGB 11.4 g/dL (11.2-15.7)
[2020-04-11 23:30] VITALS: BP 122/66; PULSE 100; RESP 18; TEMP 37.4; O2SAT 95
[2020-04-12 03:42] VITALS: BP 128/70; PULSE 97; RESP 16; TEMP 36.8; O2SAT 94
[2020-04-12 06:34] LABS: Abs Immature Grans 0.03 10^3/uL (0.0-0.06); Absolute Basophil Count 0.07 10^3/uL (0.0-0.2); Absolute Eosinophil Count 0.19 10^3/uL (0.0-0.7); Absolute Lymphocyte Count 1.17 10^3/uL (1.2-3.4); Absolute Monocyte Count 1.75 10^3/uL (0.1-0.8); Eosinophils % 2.7; HCT 32.8 % (36.0-46.0); HGB 11.7 g/dL (11.2-15.7); Immature Grans % 0.4; Lymphocytes % 16.5; MCH 35.7 pg (27.0-33.0); MCHC 35.7 % (32.0-36.0); MPV 12.5 fL (8.0-11.0); Monocytes % 24.6; Neutrophils % 54.8; Nucleated RBC 0 %; RBC 3.28 10^6/uL (3.93-5.22); RDW-SD 61.3 fL; WBC 7.11 10^3/uL (4.4-10.8)
[2020-04-12 06:44] LABS: Ammonia 63 umol/L (11-32)
[2020-04-12 06:47] LABS: ALT 43 U/L (14-59); AST 109 U/L (15-37); Albumin 2.1 g/dL (3.4-5.0); Alkaline Phosphatase 136 U/L (46-116); Anion Gap 5.5 mmol/L (3-11); BUN 15 mg/dL (7-18); Bilirubin, Total 6.7 mg/dL (0.2-1.0); CO2 27.5 mmol/L (21.0-32.0); CREATININE 0.78 mg/dL (0.55-1.02); Calcium 8.4 mg/dL (8.5-10.1); Chloride 102 mmol/L (98-107); Glucose 110 mg/dL (74-106); Potassium 3.5 mmol/L (3.5-5.1); Sodium 135 mmol/L (136-145); Total Protein 6.1 g/dL (6.4-8.2)
[2020-04-12 07:03] LABS: Anisocytosis 1+; Diff Comment Agrees w/ Instrument; Platelet Count 51 10^3/uL (130-400); Polychromasia Present
[2020-04-12 07:05] LABS: Poikilocytes 2+
[2020-04-12] MEDS: Normal Saline Flush 10 ML SYR IVP (07:32)
[2020-04-12] MEDS: Lactulose 20 GM/30 ML CUP 30 GM PO (07:32)
[2020-04-12] MEDS: Pantoprazole 40 MG VIAL IVP (07:32)
[2020-04-12] MEDS: Magnesium Oxide 400 MG TAB PO (07:33)
[2020-04-12] MEDS: Rifaximin 550 MG TAB PO (07:33)
[2020-04-12] MEDS: Multivitamin TAB 1 TAB PO (07:33)
[2020-04-12] MEDS: Cholecalciferol (Vitamin D3) 1,000 UNIT TAB 1000 UNITS PO (07:34)
[2020-04-12] MEDS: Calcium Carbonate 1.25 GM TAB 2.5 GM PO (07:35)
[2020-04-12] MEDS: Ascorbic Acid 500 MG TAB PO (07:35)
[2020-04-12] MEDS: Furosemide 20 MG TAB PO (07:35)
[2020-04-12] MEDS: Spironolactone 50 MG TAB PO (07:36)
[2020-04-12] MEDS: Lisinopril 10 MG TAB PO (07:43)
[2020-04-12 07:45] VITALS: O2SAT 94
[2020-04-12 08:10] VITALS: BP 143/71; PULSE 109; RESP 16; TEMP 37.8; O2SAT 95
--- NOTE | 2020-04-12 12:00 | DSE_ITS ---
Date of service: 04/12/20 Time of Service: 12:00 DS: Diagnosis Discharge Diagnosis (1) Hepatic encephalopathy: Status: Acute (2) Alcoholic cirrhosis: Status: Acute (3) Alcohol dependence: Status: Acute (4) Hypomagnesemia: Status: Acute (5) Thrombocytopenia: Status: Chronic Discharge Plan Disposition Patient Disposition: HOME Condition: Improving Discharge Details Reason For Visit: HEPATIC ENCEPHALOPATHY Admit Date/Time: 04/10/20 14:52 Admit Provider: Gab Whitaker Attending Provider: Gab Whitaker Primary Care Provider: Anna Marie Kaplan Hospital Course Hospital Course: This is a 70 year old female with past medical history of alcoholic cirrhosis who was referred to the ED from [facility] for altered mental status. Work up in the ED most consistent with hepatic encephalopathy. No identified source of infection identified, reports she's been alcohol free for 3 weeks until today when she drank some rum. she was admitted to hospitalist services for further management and monitoring. while on Med surg she remained medically stable. she received increased dosing of lactulose with increased stooling. she did have some bloody diarrhea intermittently. H&H was monitored and remained stable. some stool was negative for OB, some positive. she was monitored on ciwa and had minimal symtpoms. her tremors resolved. she remained afebrile and hemo dynamically stable. She remained painfree with no confusion while hospitalized. liver functions improving, ammonia level remains stable. she will be discharged home with outpatient referral to GI for further management. discharge plan discussed with Dr Whitaker who is in agreement. Home Meds and New Rx's Prescriptions: Continued niacin 250 MG capsule, extended release 500 mg PO Q OTHER DAY RF: 0 calcium carbonate [Calcium 500] 500 MG tablet 500 mg PO 2 tabs daily RF: 0 epinephrine 0.3 MG/0.3 ML auto-injector 0.3 mg IM PRN RF: 0 cholecalciferol (vitamin D3) 1,000 UNIT capsule 1,000 unit PO DAILY RF: 0 multivitamin [Multi-Day] 1 EACH tablet 1 ea PO DAILY RF: 0 magnesium oxide 400 MG tablet 400 mg PO DAILY RF: 0 VITAMIN C 500 mg PO DAILY RF: 0 lidocaine 15 GM cream 15 gm Topical Q4H PRN Qty: 1 RF: 1 lisinopril 10 MG tablet 10 mg PO DAILY RF: 0 hydroxyzine HCl 25 mg tablet 25 mg PO .QHS PRNRF: 0 furosemide 20 mg tablet 20 mg PO DAILY RF: 0 spironolactone 50 mg tablet 50 mg PO DAILY RF: 0 Changed lactulose 10 gram/15 mL solution 20 g PO TID Qty: 0 RF: 0 Discharge Instructions Instructions: Cirrhosis (DC) Additional Instructions: Continue increased lactulose for now until instructed by primary care or gastroenterology Resume other usual medications as directed Avoid all alcohol. Stand Alone Forms: Nursing Discharge Form [place] [place] - ( Please call to schedule follow up with hepatology. [phone]) Anna Marie Kaplan [Primary Care Provider] - 04/16/20 8:45 am Activity:: Activity as Tolerated Equipment/Supplies:: No Equipment Needed Diet:: Low Sodium Discharge Orders Discharge Orders: Discharge Order (Routine); Ordered 04/12/20 Ordered By: Elisa Bhagat Discharge Data Discharge Date/Time-TO BE ENTERED AT DEPARTURE: 04/12/20 13:56 DS: Summary Status at Discharge Functional status at discharge: independent ambulation Overall status at discharge: patient is back to baseline Mental Status: mental status grossly normal Speech and Movement: speech and movement normal Mood: congruent mood Affect: normal affect Exam Const General: disheveled, frail appearing and ill appearing chronically Nutritional Appearance: thin Orientation: alert, awake and oriented x3 HENMT Head: normal to inspection, normocephalic and atraumatic Mouth: moist mucous membranes abnormal (dry) Eyes Sclera: scleral abnormality bilaterally other (icteric) Resp Effort & Inspection: normal respiratory effort Auscultation: clear to auscultation bilaterally Cardio Rate: regular rate Rhythm: regular rhythm GI Inspection: distended Palpation: soft, not firm, no guarding, no masses, not rigid, nontender and ascites Auscultation: normal bowel sounds Skin General skin exam: jaundice Neuro General: patient alert, patient awake and moves all extremities Extrem General: no pedal edema and other (upper extremity tremors) Psych Appearance: grossly normal (older than stated age,) Mental Status: mental status grossly normal Speech and Movement: speech and movement normal Mood: congruent mood Affect: normal affect Attitude: cooperative DS: Data Vitals/I&O Vitals and I&O: Vital Signs Temperature 36.8 C 04/12/20 03:42 Temperature Source Tympanic 04/12/20 03:42 Pulse 97 H 04/12/20 03:42 Pulse Rhythm Regular 04/12/20 07:45 Pulse 116 H 04/10/20 16:10 Respiratory Rate 16 04/12/20 03:42 Respiratory Effort Non-Labored 04/12/20 07:45 Respiratory Depth Normal 04/12/20 07:45 Respiratory Pattern Normal 04/12/20 07:45 Blood Pressure 128/70 04/12/20 03:42 Blood Pressure Mean 88 04/10/20 16:00 Blood Pressure Position Sitting 04/10/20 12:31 Pulse Oximetry 94 04/12/20 07:45 Oxygen Delivery Method Room Air 04/12/20 07:45 Oxygen Flow Rate 0 04/12/20 07:45 Pain Level 0 04/12/20 03:42 Intake & Output 04/11/20 04/12/20 04/12/20 23:59 11:59 23:59 Intake Total 620 / 720 770 / 770 Output Total 600 / 1550 500 / 500 Balance 20 / 830 270 / 270 Intake: IV 20 / 120 Oral 600 / 600 750 / 750 Output: Urine 200 / 450 500 / 500 Stool 400 / 1100 Other: Urine Color [place] Urine Appearance Clear Urine Odor Normal Stool Occult Blood Positive Negative Stool Size Small Large Stool Characteristics Liquid Liquid Brown Voiding Methods Toilet Toilet Data Completed and Pending Labs on day of discharge: Labs from last 24 hours 04/12/20 04/12/20 04/12/20 06:15 06:15 06:15 WBC 7.11 RBC 3.28 L Hgb 11.7 Hct 32.8 L MCV 100.0 H MCH 35.7 H MCHC 35.7 RDW 17.0 H Plt Count 51 L MPV 12.5 H Immature Gran % 0.4 Neutrophils % 54.8 Lymphocytes % 16.5 Monocytes % 24.6 Eosinophils % 2.7 Basophils % 1.0 Nucleated RBC % 0 Absolute Neutrophils 3.90 Absolute Lymphocytes 1.17 L Absolute Monocytes 1.75 H Absolute Eosinophils 0.19 Absolute Basophils 0.07 RBC Morphology See below Polychromasia Present Poikilocytosis 2+ Anisocytosis 1+ Sodium 135 L Potassium 3.5 Chloride 102 Carbon Dioxide 27.5 Anion Gap 5.5 BUN 15 Creatinine 0.78 Estimated GFR/1.73 m2 >= 60.00 Glucose 110 H Calcium 8.4 L Total Bilirubin 6.7 H AST 109 H ALT 43 Alkaline Phosphatase 136 H Ammonia 63 H Total Protein 6.1 L Albumin 2.1 L 04/11/20 20:00 WBC RBC Hgb 11.4 Hct 32.1 L MCV MCH MCHC RDW Plt Count MPV Immature Gran % Neutrophils % Lymphocytes % Monocytes % Eosinophils % Basophils % Nucleated RBC % Absolute Neutrophils Absolute Lymphocytes Absolute Monocytes Absolute Eosinophils Absolute Basophils RBC Morphology Polychromasia Poikilocytosis Anisocytosis Sodium Potassium Chloride Carbon Dioxide Anion Gap BUN Creatinine Estimated GFR/1.73 m2 Glucose Calcium Total Bilirubin AST ALT Alkaline Phosphatase Ammonia Total Protein Albumin [facility] Medical History (Updated 04/11/20 @ 09:31 by Elisa Bhagat NP) Alcohol dependence Alcoholic cirrhosis CHF (congestive heart failure) Hepatic encephalopathy Hyperlipidemia Surgical History Colonoscopy - [facility] (09/29/16) Social History Smoking/Tobacco Use Status: Former Tobacco Use Smoking risk assessment performed?: Yes Alcohol Intake: former Drug use: Never Substance use type: does not use Do you feel safe at home: Yes Do you feel safe in your relationship?: Yes
--- NOTE | 2020-04-12 12:34 | PDOC.CMDIS ---
LACE Index Scoring Tool - Questions: Length of Stay (in days): 2 Acuity (Admit via E.D.?): Yes Comorbidities: Congestive Heart Failure, Liver or Renal Disease E.D. Visits: 2 - Answers: Total Score: 12 Risk of Readmission: High Risk Care Management Discharge Reason for Hospitalization: Hepatic Enecephalopathy Discharge Plan: Meredith will be discharged to home when medically ready per provider. She will follow up with her PCP and plan of care as prescribed. CM connected Meredith to [facility]: Yeni for further support as well. Meredith will transport via private vehicle with her , Tyree. Patient/Family Education Needs: Review discharge instructions, discuss Ask Me Three.
--- NOTE | 2020-04-12 13:25 | W.NUTCONSULT ---
Date of service: 04/12/20 Time of Service: 13:25 Nutritional Consult ASSESSMENT: Meredith is 70 year old female admitted iwth hepatic encephalopathy with alcoholic cirrohosis. Medical chart indicates 17 lbs weight loss in last year (-15%) of concern. Met with Meredith today. She states that she lost weight on purpose and has had good appetite prior to admission. In view of hx of alcohol dependence and significant weight loss in last year, at high nutritional risk. Estimated needs: 4085-0537 kcal, 51-61 g protein. Following Low sodium diet with > 75% meal completion. Currently meeting nutrient needs for weight maintenance. NUTRITIONAL DIAGNOSIS: Impaired nutrient utilization in view of liver cirrohosis INTERVENTION: Low sodium diet MONITORING AND EVALUATION: weight, po intake, labs Time Spent in Nutritional Counseling and Treatment: 10 min spent face to face
[2020-04-14 13:35] LABS: COVID-19 RT-PCR UVMMC Result NEGATIVE (Negative)
== END 2020-04-12 13:56 | disposition home or self-care (01) | DRG 434 ==
LOC: ER 15:48 → MS 16:34
PROVIDERS: Nurse Practitioner Acute Care; Admitting Provider Family Medicine; Emergency Provider Student in an Organized Health Care Education/Training Program; PCP Nurse Practitioner Family; Visit Provider Family Medicine
DX: K70.40 Alcoholic hepatic failure without coma (principal); K70.30 Alcoholic cirrhosis of liver without ascites; F10.20 Alcohol dependence, uncomplicated; D69.6 Thrombocytopenia, unspecified; E83.42 Hypomagnesemia; I50.9 Heart failure, unspecified; E78.5 Hyperlipidemia, unspecified; Z87.891 Personal history of nicotine dependence
CPT/HCPCS: 36415; 80053; 90662; 93005; 96361; 96365; 96366; 99223; 99233; 99239; 99285; U0003; 70450; 81003; 81015; 82140; 83605; 83735; 83880; 84443; 84484; 85014; 85018; 85025; 93010; J3475; J3480

== ENCOUNTER 2020-04-27 01:50 | Outpatient (CLI) | payer MEDICARE, OTHER, SELFPAY ==
[2020-04-27 12:13] LABS: Abs Immature Grans 0.02 10^3/uL (0.0-0.06); Absolute Basophil Count 0.12 10^3/uL (0.0-0.2); Absolute Eosinophil Count 0.22 10^3/uL (0.0-0.7); Absolute Lymphocyte Count 1.14 10^3/uL (1.2-3.4); Absolute Monocyte Count 1.43 10^3/uL (0.1-0.8); Basophils % 1.6; HCT 35.5 % (36.0-46.0); HGB 12.1 g/dL (11.2-15.7); Immature Grans % 0.3; Lymphocytes % 15.3; MCH 35.4 pg (27.0-33.0); MCHC 34.1 % (32.0-36.0); MCV 103.8 fL (80-95); MPV 10.8 fL (8.0-11.0); Monocytes % 19.2; Neutrophils % 60.6; Nucleated RBC 0 %; Platelet Count 146 10^3/uL (130-400); RBC 3.42 10^6/uL (3.93-5.22); RDW 17.6 % (11.7-14.6); RDW-SD 67.5 fL; WBC 7.43 10^3/uL (4.4-10.8)
[2020-04-27 12:19] LABS: Ammonia 35 umol/L (11-32)
[2020-04-27 12:31] LABS: Magnesium 1.7 mg/dL (1.8-2.4)
== END 2020-04-27 02:10 ==
PROVIDERS: PCP Nurse Practitioner Family; Visit Provider Nurse Practitioner Family
DX: K92.1 Melena (principal); E83.42 Hypomagnesemia; K74.60 Unspecified cirrhosis of liver; D69.6 Thrombocytopenia, unspecified; F10.10 Alcohol abuse, uncomplicated
CPT/HCPCS: 36415; 82140; 83735; 85025

== ENCOUNTER 2020-07-27 16:01 | Emergency (ER) | payer MEDICARE, OTHER, SELFPAY ==
[2020-07-27] VITALS (37 sets, daily range): BP systolic 118–143; BP diastolic 48–71; PULSE 74–96; RESP 11–23; TEMP 36.6; O2SAT 91–97
--- NOTE | 2020-07-27 16:47 | ED.GENADUL_ITS ---
Discharge Plan Disposition Patient Disposition: HOME Condition: Improving Discharge Details Clinical Impression: Acute hypokalemia, Hypomagnesemia Primary Care Provider: Anna Marie Kaplan ED Provider: Harshil Trejo Home Meds and New Rx's Prescriptions: Continued niacin 250 MG capsule, extended release 500 mg PO Q OTHER DAY RF: 0 calcium carbonate [Calcium 500] 500 MG tablet 500 mg PO 2 tabs daily RF: 0 epinephrine 0.3 MG/0.3 ML auto-injector 0.3 mg IM PRN RF: 0 cholecalciferol (vitamin D3) 1,000 UNIT capsule 1,000 unit PO DAILY RF: 0 multivitamin [Multi-Day] 1 EACH tablet 1 ea PO DAILY RF: 0 magnesium oxide 400 MG tablet 400 mg PO DAILY RF: 0 VITAMIN C 500 mg PO DAILY RF: 0 lidocaine 15 GM cream 15 gm Topical Q4H PRN Qty: 1 RF: 1 lactulose 10 gram/15 mL solution 20 g PO BID RF: 0 hydroxyzine HCl 25 mg tablet 25 mg PO .QHS PRNRF: 0 furosemide 20 mg tablet 20 mg PO DAILY RF: 0 spironolactone 50 mg tablet 50 mg PO DAILY RF: 0 Discharge Instructions Instructions: Hypokalemia (ED), Hypomagnesemia (ED) Additional Instructions: Increase your daily consumption of fresh fruits and leafy green vegetables. Please follow-up with Dr. Schaffer in clinic for recheck. I recommend you increase your lactulose to twice daily. Return to the ER for any acute concerns. Medical Decision Making 70-year-old female presents from home. She has a history of alcoholic cirrhosis for which she is followed by gastroenterology at [facility]. She reports she does have intermittent episodes of lightheadedness that she states feels woozy. Is not a motion sensation and she has not had any syncope. She denies a headache. She states that recently her lactulose was reduced from 3 times daily daily to twice daily, to recently 1 time per day. Her exam is reassuring. Differential diagnosis includes recidivistic alcohol use, dehydration, electrolyte abnormalities, hyperammonemia. Patient had IV access established and laboratories were obtained. Ammonia was 34, AST 139, ALT 47, total bili 4.4 which is at the lower end of her recent range. Electrolyte abnormalities include a magnesium of 1.2 and potassium of 2.9. Additionally, her ethyl alcohol level was 304 which she states to me she would attribute to using cooking wine last night. Patient had magnesium and potassium supplemented in the emergency department. She has had decreased bowel movements and I do feel she would benefit from increasing her lactulose to twice daily as she currently is only taking once daily. I admonished her to avoid alcohol at all costs. She will follow-up with [facility] for recheck. Lab Data Lab results reviewed: Yes I reviewed the patient's lab results. Labs: Laboratory Results - last 24 hr 07/27/20 07/27/20 07/27/20 17:40 17:40 17:40 WBC 5.74 RBC 3.13 L Hgb 11.3 Hct 32.0 L MCV 102.2 H MCH 36.1 H MCHC 35.3 RDW 16.1 H Plt Count 60 L MPV 11.5 H Immature Gran % 0.0 Neutrophils % 47.0 Band Neutrophils % 3 Lymphocytes % 24.0 Monocytes % 23.0 Eosinophils % 3.0 Basophils % 0.0 Nucleated RBC % 0 Absolute Neutrophils 2.87 Absolute Lymphocytes 1.38 Absolute Monocytes 1.32 H Absolute Eosinophils 0.17 Absolute Basophils 0.00 RBC Morphology See below Polychromasia Present Poikilocytosis 1+ Sodium 142 Potassium 2.9 L Chloride 104 Carbon Dioxide 27.5 Anion Gap 10.5 BUN 12 Creatinine 0.7 Estimated GFR/1.73 m2 >= 60.00 Glucose 117 H Calcium 8.1 L Magnesium 1.2 L Total Bilirubin 4.4 H AST 139 H ALT 47 Alkaline Phosphatase 120 H Ammonia Total Protein 7.3 Albumin 2.3 L Ethyl Alcohol 304.4 07/27/20 17:40 WBC RBC Hgb Hct MCV MCH MCHC RDW Plt Count MPV Immature Gran % Neutrophils % Band Neutrophils % Lymphocytes % Monocytes % Eosinophils % Basophils % Nucleated RBC % Absolute Neutrophils Absolute Lymphocytes Absolute Monocytes Absolute Eosinophils Absolute Basophils RBC Morphology Polychromasia Poikilocytosis Sodium Potassium Chloride Carbon Dioxide Anion Gap BUN Creatinine Estimated GFR/1.73 m2 Glucose Calcium Magnesium Total Bilirubin AST ALT Alkaline Phosphatase Ammonia 34 H Total Protein Albumin Ethyl Alcohol HPI General Mode of arrival: ambulatory . Date/Time Provider Initiated Documentation: 07/27/20 16:04 . Limitations to Documentation: no limitations . Information obtained by: patient . History of Present Illness 70 year old F presents to the emergency department with the chief complaint of Lightheaded, described as moderate, Quality is described as dull, and is localized to the head. Patient reports no radiation. Patient started experiencing this day(s) and it has been intermittent. No relieving factors improve symptom(s), No exacerbating factors reported . Patient notes denies fever/chills, headaches, loss of appetite and nausea/vomiting. Patient did receive the following treatments prior to arrival, none Related Data Home Medications Medication Instructions Recorded Confirmed calcium carbonate [Calcium 500] 500 mg PO 2 tabs daily 09/01/13 07/27/20 cholecalciferol (vitamin D3) 1,000 unit PO DAILY 09/01/13 07/27/20 epinephrine 0.3 mg IM PRN 09/01/13 07/27/20 multivitamin [Multi-Day] 1 ea PO DAILY 09/01/13 07/27/20 niacin 500 mg PO Q OTHER DAY 09/01/13 07/27/20 magnesium oxide 400 mg PO DAILY 10/26/15 07/27/20 Vitamin C 500 mg PO DAILY 08/27/16 07/27/20 lidocaine 15 gm TOPICAL Q4H PRN #1 tube 09/24/16 07/27/20 furosemide 20 mg PO DAILY 04/10/20 07/27/20 hydroxyzine HCl 25 mg PO .QHS PRN 04/10/20 07/27/20 spironolactone 50 mg PO DAILY 04/10/20 07/27/20 lactulose 20 g PO BID 07/27/20 07/27/20 Allergies Allergy/AdvReac Type Severity Reaction Status Date / Time hydrochlorothiazide Allergy Severe Unverified 04/10/20 12:42 simvastatin Allergy Severe Kidney Unverified 04/10/20 12:42 failure venom-honey bee Allergy Severe Unverified 04/10/20 12:42 General Stated Complaint: Dizzy/Sync KARTHIK: 2 Review of Systems Narrative: No recent fever, no vomiting, as he been able to eat. No change to stool color. Has had less stool output. Recently had decreased of lactulose to once daily. [facility] Medical History (Updated 07/27/20 @ 18:49 by Harshil Trejo MD) Alcohol dependence Alcoholic cirrhosis CHF (congestive heart failure) Hepatic encephalopathy Hyperlipidemia Surgical History Colonoscopy - MAC (09/29/16) Social History Smoking/Tobacco Use Status: Former Tobacco Use Smoking risk assessment performed?: Yes Alcohol Intake: former Drug use: Never Substance use type: does not use Do you feel safe at home: Yes Do you feel safe in your relationship?: Yes Exam Narrative Exam Narrative: GEN: awake, alert, oriented 3. Pleasant, well groomed, interactive. HEAD: Normocephalic, atraumatic ENT: Mucous membranes moist, oropharynx unremarkable, External ear exam unremarkable EYES: PERRL, EOMI NECK: Full ROM, no PERRY, no menigismus CHEST/RESP: Nontender, clear to auscultation bilateral, no wheeze/rhonchi/rales CARDIOVASCULAR: RRR, no murmur, rub jacob. 2+ Rad pulse bilateral ABDOMEN: Soft, nontender, no mass. +Bowel sounds EXT: Full ROM, no edema, no rash Neuro: Grossly normal neurologic exam, conversant, interactive. Psych: Speech fluent, thoughts congruent, affect normal Course Vital Signs Vital signs: Vital Signs Temperature 36.6 C 07/27/20 16:14 Pulse 80 07/27/20 16:14 Respiratory Rate 18 07/27/20 16:14 Blood Pressure 143/63 H 07/27/20 16:14 Pulse Oximetry 95 07/27/20 16:14 Temperature 36.6 C 07/27/20 16:14 Temperature Source Tympanic 07/27/20 16:14 Pulse 80 07/27/20 16:14 Respiratory Rate 18 07/27/20 16:14 Respiratory Effort 07/27/20 16:25 Blood Pressure 143/63 H 07/27/20 16:14 Pulse Oximetry 95 07/27/20 16:14 Oxygen Delivery Method Room Air 07/27/20 16:14 Oxygen Flow Rate 0 07/27/20 16:14 Pain Level 0 07/27/20 16:14
[2020-07-27] MEDS: Normal Saline 1,000 ML 1000 ML IV (17:46)
[2020-07-27 17:50] LABS: Abs Immature Grans 0.02 10^3/uL (0.0-0.06); HGB 11.3 g/dL (11.2-15.7); MCH 36.1 pg (27.0-33.0); MCHC 35.3 % (32.0-36.0); MCV 102.2 fL (80-95); MPV 11.5 fL (8.0-11.0); Nucleated RBC 0 %; RBC 3.13 10^6/uL (3.93-5.22); RDW 16.1 % (11.7-14.6); RDW-SD 60.6 fL; WBC 5.74 10^3/uL (4.4-10.8)
[2020-07-27 18:02] LABS: Ammonia 34 umol/L (11-32)
[2020-07-27 18:04] LABS: ALT 47 U/L (14-59); AST 139 U/L (15-37); Albumin 2.3 g/dL (3.4-5.0); Alkaline Phosphatase 120 U/L (46-116); Anion Gap 10.5 mmol/L (3-11); BUN 12 mg/dL (7-18); Bilirubin, Total 4.4 mg/dL (0.2-1.0); CO2 27.5 mmol/L (21.0-32.0); CREATININE 0.7 mg/dL (0.55-1.02); Calcium 8.1 mg/dL (8.5-10.1); Chloride 104 mmol/L (98-107); Glucose 117 mg/dL (74-106); Magnesium 1.2 mg/dL (1.8-2.4); Sodium 142 mmol/L (136-145); Total Protein 7.3 g/dL (6.4-8.2)
[2020-07-27 18:07] LABS: Potassium 2.9 mmol/L (3.5-5.1)
--- NOTE | 2020-07-27 18:07 | NUR.NOTE ---
CRITICAL K+ 2.9 AT 1808Nursing Note:
[2020-07-27 18:09] LABS: ETHANOL BLOOD 304.4 mg/dL (<3)
[2020-07-27 18:22] LABS: Absolute Eosinophil Count 0.17 10^3/uL (0.0-0.7); Absolute Lymphocyte Count 1.38 10^3/uL (1.2-3.4); Absolute Monocyte Count 1.32 10^3/uL (0.1-0.8); Absolute Neutrophil Count 2.87 10^3/uL (1.2-6.7); Bands % 3; Platelet Count 60 10^3/uL (130-400)
[2020-07-27 18:23] LABS: Diff Comment Manual Differential; Poikilocytes 1+; Polychromasia Present
[2020-07-27] MEDS: MAGNESIUM SULFATE 2 GM/50 ML BAG IVPB (18:46)
[2020-07-27] MEDS: Potassium Chloride 20 MEQ TABCR PO (18:48)
== END 2020-07-27 21:08 | disposition home or self-care (01) ==
PROVIDERS: Emergency Provider Emergency Medicine; PCP Nurse Practitioner Family
DX: E87.6 Hypokalemia (principal); E83.42 Hypomagnesemia
CPT/HCPCS: 36415; 80053; 96361; 96365; 96366; 99284; 80320; 82140; 83735; 85025; 99283

== ENCOUNTER 2020-08-15 15:32 | Outpatient (REF) | payer MEDICARE, OTHER, SELFPAY ==
[2020-08-15 22:10] LABS: HGB 12.1 g/dL (11.2-15.7); MCH 36.8 pg (27.0-33.0); MCHC 36.7 % (32.0-36.0); MCV 100.3 fL (80-95); RBC 3.29 10^6/uL (3.93-5.22); RDW 15.3 % (11.7-14.6); RDW-SD 56.8 fL; WBC 6.24 10^3/uL (4.4-10.8)
[2020-08-15 22:13] LABS: ALT 68 U/L (14-59); AST 83 U/L (15-37); Albumin 2.5 g/dL (3.4-5.0); Alkaline Phosphatase 152 U/L (46-116); Anion Gap 12.8 mmol/L (3-11); BUN 47 mg/dL (7-18); Bilirubin, Total 10.8 mg/dL (0.2-1.0); CO2 22.2 mmol/L (21.0-32.0); CREATININE 1.9 mg/dL (0.55-1.02); Calcium 8.9 mg/dL (8.5-10.1); Chloride 94 mmol/L (98-107); Estimated GFR 26.21 (mL/min/1.73m2); Glucose 105 mg/dL (74-106); Potassium 4.8 mmol/L (3.5-5.1); Sodium 129 mmol/L (136-145); Total Protein 7.5 g/dL (6.4-8.2)
[2020-08-15 22:28] LABS: Platelet Count 80 10^3/uL (130-400)
== END 2020-08-15 15:33 | disposition home or self-care (01) ==
LOC: NCHCN 15:32
PROVIDERS: PCP Nurse Practitioner Family; Visit Provider Nurse Practitioner Family
DX: K70.30 Alcoholic cirrhosis of liver without ascites (principal)
CPT/HCPCS: 80053; 85027; 83735

== ENCOUNTER 2020-08-17 18:40 | Outpatient (REF) | payer MEDICARE, OTHER, SELFPAY ==
[2020-08-17 13:39] LABS: ALT 55 U/L (14-59); AST 67 U/L (15-37); Albumin 2.1 g/dL (3.4-5.0); Alkaline Phosphatase 151 U/L (46-116); Anion Gap 10.4 mmol/L (3-11); BUN 45 mg/dL (7-18); Bilirubin, Total 8.7 mg/dL (0.2-1.0); CO2 24.6 mmol/L (21.0-32.0); CREATININE 1.5 mg/dL (0.55-1.02); Chloride 98 mmol/L (98-107); Estimated GFR 34.43 (mL/min/1.73m2); Glucose 122 mg/dL (74-106); Potassium 5.1 mmol/L (3.5-5.1); Sodium 133 mmol/L (136-145); Total Protein 6.9 g/dL (6.4-8.2)
[2020-08-17 13:43] LABS: HCT 30.4 % (36.0-46.0); MCH 36.8 pg (27.0-33.0); MCHC 36.2 % (32.0-36.0); MCV 101.7 fL (80-95); MPV 14.1 fL (8.0-11.0); RBC 2.99 10^6/uL (3.93-5.22); RDW 15.8 % (11.7-14.6); RDW-SD 58.7 fL; WBC 6.17 10^3/uL (4.4-10.8)
[2020-08-17 14:33] LABS: Platelet Count 64 10^3/uL (130-400)
== END 2020-08-17 18:41 | disposition home or self-care (01) ==
LOC: NCHCN 18:40
PROVIDERS: PCP Nurse Practitioner Family; Visit Provider Nurse Practitioner Family
DX: K70.30 Alcoholic cirrhosis of liver without ascites (principal)
CPT/HCPCS: 80053; 85027

== ENCOUNTER 2020-08-23 03:38 | Outpatient (CLI) | payer MEDICARE, OTHER, SELFPAY ==
[2020-08-23 10:50] LABS: Abs Immature Grans 0.05 10^3/uL (0.0-0.06); Absolute Basophil Count 0.13 10^3/uL (0.0-0.2); Absolute Eosinophil Count 0.36 10^3/uL (0.0-0.7); Absolute Lymphocyte Count 1.41 10^3/uL (1.2-3.4); Absolute Monocyte Count 1.96 10^3/uL (0.1-0.8); Absolute Neutrophil Count 5.03 10^3/uL (1.2-6.7); Basophils % 1.5; HCT 28.7 % (36.0-46.0); HGB 10.2 g/dL (11.2-15.7); Immature Grans % 0.6; Lymphocytes % 15.8; MCH 36.6 pg (27.0-33.0); MCHC 35.5 % (32.0-36.0); MCV 102.9 fL (80-95); MPV 11.9 fL (8.0-11.0); Monocytes % 21.9; Neutrophils % 56.2; Nucleated RBC 0 %; RBC 2.79 10^6/uL (3.93-5.22); RDW 15.4 % (11.7-14.6); RDW-SD 57.9 fL; WBC 8.94 10^3/uL (4.4-10.8)
[2020-08-23 10:56] LABS: Ammonia 33 umol/L (11-32)
[2020-08-23 11:03] LABS: INR 1.3 (0.9-1.1); Prothrombin Time 13.3 sec (9.3-11.0)
[2020-08-23 11:07] LABS: Diff Comment Diff Reviewed; Platelet Count 94 10^3/uL (130-400)
[2020-08-23 11:08] LABS: Basophilic Stippling Present; Macrocytosis 1+; Polychromasia Present
[2020-08-23 11:09] LABS: Target Cells 2+
[2020-08-23 11:36] LABS: ALT 48 U/L (14-59); AST 70 U/L (15-37); Albumin 2.1 g/dL (3.4-5.0); Alkaline Phosphatase 143 U/L (46-116); Anion Gap 8.1 mmol/L (3-11); BUN 37 mg/dL (7-18); Bilirubin, Total 6.5 mg/dL (0.2-1.0); CO2 23.9 mmol/L (21.0-32.0); CREATININE 1.3 mg/dL (0.55-1.02); Calcium 8.7 mg/dL (8.5-10.1); Chloride 102 mmol/L (98-107); Estimated GFR 40.61 (mL/min/1.73m2); Glucose 137 mg/dL (74-106); Potassium 4.7 mmol/L (3.5-5.1); Sodium 134 mmol/L (136-145); Total Protein 6.8 g/dL (6.4-8.2)
== END 2020-08-23 03:39 | disposition home or self-care (01) ==
LOC: LBO 03:38
PROVIDERS: PCP Nurse Practitioner Family; Visit Provider Nurse Practitioner Family
DX: K70.30 Alcoholic cirrhosis of liver without ascites (principal)
CPT/HCPCS: 36415; 80053; 82140; 85025; 85610

== ENCOUNTER 2020-09-04 12:28 | Outpatient (REF) | payer MEDICARE, SELFPAY ==
[2020-09-04 13:06] LABS: INR 1.2 (0.9-1.1); Prothrombin Time 12.1 sec (9.3-11.0)
[2020-09-04 13:21] LABS: Abs Immature Grans 0.05 10^3/uL (0.0-0.06); Absolute Basophil Count 0.13 10^3/uL (0.0-0.2); Absolute Eosinophil Count 0.47 10^3/uL (0.0-0.7); Absolute Lymphocyte Count 1.59 10^3/uL (1.2-3.4); Absolute Monocyte Count 1.26 10^3/uL (0.1-0.8); Absolute Neutrophil Count 5.17 10^3/uL (1.2-6.7); Basophils % 1.5; Eosinophils % 5.4; HCT 31.6 % (36.0-46.0); HGB 10.9 g/dL (11.2-15.7); Immature Grans % 0.6; Lymphocytes % 18.3; MCH 36.1 pg (27.0-33.0); MCHC 34.5 % (32.0-36.0); MCV 104.6 fL (80-95); MPV 12.1 fL (8.0-11.0); Monocytes % 14.5; Neutrophils % 59.7; Nucleated RBC 0 %; Platelet Count 119 10^3/uL (130-400); RBC 3.02 10^6/uL (3.93-5.22); RDW 15.9 % (11.7-14.6); RDW-SD 60.9 fL; WBC 8.67 10^3/uL (4.4-10.8)
[2020-09-04 13:56] LABS: ALT 52 U/L (14-59); AST 66 U/L (15-37); Albumin 2.3 g/dL (3.4-5.0); Alkaline Phosphatase 118 U/L (46-116); Anion Gap 7.7 mmol/L (3-11); BUN 29 mg/dL (7-18); Bilirubin, Total 5.9 mg/dL (0.2-1.0); CO2 25.3 mmol/L (21.0-32.0); CREATININE 1.1 mg/dL (0.55-1.02); Calcium 9.8 mg/dL (8.5-10.1); Chloride 105 mmol/L (98-107); Estimated GFR 49.25 (mL/min/1.73m2); Glucose 131 mg/dL (74-106); Sodium 138 mmol/L (136-145); Total Protein 7.4 g/dL (6.4-8.2)
[2020-09-04 13:59] LABS: Potassium 6.1 mmol/L (3.5-5.1)
== END 2020-09-04 12:29 | disposition home or self-care (01) ==
LOC: NCHCN 12:28
PROVIDERS: PCP Nurse Practitioner Family; Visit Provider Nurse Practitioner Family
DX: K70.30 Alcoholic cirrhosis of liver without ascites (principal); G93.49 Other encephalopathy
CPT/HCPCS: 80053; 85025; 85610

== ENCOUNTER 2020-09-04 17:42 | Emergency (ER) | payer MEDICARE, OTHER, SELFPAY ==
[2020-09-04] VITALS (11 sets, daily range): BP systolic 117–133; BP diastolic 52–56; PULSE 52–61; RESP 9–20; TEMP 36.7; O2SAT 99
--- NOTE | 2020-09-04 17:45 | RT.EKG_ITS ---
APPROVED REPORT Exam: Resting ECG Patient Location: E HR:59 bpm ECG Measurements Heart Rate 59 AXIS WA 141 P 61 QRSd 89 QRS -13 QT 430 T 25 QTc 427 Conclusion Sinus bradycardia, rate 59
--- NOTE | 2020-09-04 17:56 | ED.GENADUL_ITS ---
Discharge Plan Disposition Patient Disposition: HOME Condition: Stable Discharge Details Clinical Impression: Hyperkalemia Primary Care Provider: Anna Marie Kaplan ED Provider: Jossy Koenig Home Meds and New Rx's Prescriptions: Continued niacin 250 MG capsule, extended release 500 mg PO Q OTHER DAY RF: 0 calcium carbonate [Calcium 500] 500 MG tablet 500 mg PO 2 tabs daily RF: 0 epinephrine 0.3 MG/0.3 ML auto-injector 0.3 mg IM PRN RF: 0 cholecalciferol (vitamin D3) 1,000 UNIT capsule 1,000 unit PO DAILY RF: 0 multivitamin [Multi-Day] 1 EACH tablet 1 ea PO DAILY RF: 0 VITAMIN C 500 mg PO DAILY RF: 0 lactulose 10 gram/15 mL solution 20 g PO TID RF: 0 hydroxyzine HCl 25 mg tablet 25 - 50 mg PO .QHS PRNRF: 0 furosemide 20 mg tablet 20 mg PO DAILY RF: 0 spironolactone 50 mg tablet 50 mg PO DAILY RF: 0 nadolol 40 mg tablet 40 mg PO DAILY RF: 0 magnesium L-lactate [Magtab] 84 mg tablet extended release 84 mg PO TID RF: 0 Discharge Instructions Instructions: Hyperkalemia (ED) Additional Instructions: As we discussed, your potassium was found to be just slightly elevated. I do not feel that you need to have an emergent intervention for the potassium at this level. Rather, please hold your spironolactone in the morning as previously discussed by your primary care and contact them for further guidance. Please avoid potassium-containing foods as much as possible. Encourage water intake. If you develop any new or worsening symptoms please seek care urgently once again. Referrals: Anna Marie Kaplan [Primary Care Provider] - Medical Decision Making The patient is a pleasant 70-year-old female presenting today with chief complaint of hyperkalemia. We were contacted by her primary care prior to her arrival. Patient has been on spironolactone chronically per patient report but states that she did recently have an increase in her dosing. She had routine labs completed today and was found to have a K of 6.1. primary care contacted the patient and advised that she be evaluated here as they are having difficulty obtaining correct medication to help her with her hyperkalemia. Patient reports that she is asymptomatic and feels fine. She denies palpitations, chest pain, shortness of breath, GI upset. EKG was obtained and reviewed by Dr. Trejo. Patient is normal sinus rhythm rate of 69. No acute ischemic changes, no peaked T waves or evidence of hyperkalemia. Patient appears nontoxic and in no acute EKG findings are noted, plan to repeat labs. Repeat labs, patient is noted to be anemic which is baseline for the patient. Platelets are baseline for the patient was before. Her potassium was 5.3. Creatinine 1.5. Patient has been elevated historically. Please see bili is 5.7 glucose again is baseline for the patient. AST 59, baseline for patient. I discussed the findings with the patient. At this point, with a potassium of 5.3, I do not feel that immediate intervention is needed. She was already advised by her primary care to hold the spironolactone which she will do tomorrow morning. I did advise that she contact her primary care tomorrow morning to discuss further dosing of spironolactone and ensure that she has prompt recheck of her labs. Return precautions were discussed. All the questions and concerns were addressed and she is in agreement with this plan. HPI General Mode of arrival: ambulatory . Date/Time Provider Initiated Documentation: 09/04/20 17:45 . Limitations to Documentation: no limitations . Information obtained by: patient, RN/MD (PCP called and advised she was coming in for hyperkalemia), RN notes reviewed and old records reviewed . HPI Narrative: Patient sent in by PCP for hyperkalemia. Was having routine labs and found K+ of 6.1. Patient is chronically on spironolactone, patient reports recent increase in dosing. Patient reports that she is feeling well with no acute symptoms. She denies fevers/chills, CP, palpitations, GI upset, change in urinary habits. Related Data Home Medications Medication Instructions Recorded Confirmed calcium carbonate [Calcium 500] 500 mg PO 2 tabs daily 09/01/13 09/04/20 cholecalciferol (vitamin D3) 1,000 unit PO DAILY 09/01/13 09/04/20 epinephrine 0.3 mg IM PRN 09/01/13 09/04/20 multivitamin [Multi-Day] 1 ea PO DAILY 09/01/13 09/04/20 niacin 500 mg PO Q OTHER DAY 09/01/13 09/04/20 Vitamin C 500 mg PO DAILY 08/27/16 09/04/20 furosemide 20 mg PO DAILY 04/10/20 09/04/20 hydroxyzine HCl 25 - 50 mg PO .QHS PRN 04/10/20 09/04/20 spironolactone 50 mg PO DAILY 04/10/20 07/27/20 lactulose 20 g PO TID 07/27/20 09/04/20 magnesium L-lactate [Magtab] 84 mg PO TID 09/04/20 09/04/20 nadolol 40 mg PO DAILY 09/04/20 09/04/20 Allergies Allergy/AdvReac Type Severity Reaction Status Date / Time hydrochlorothiazide Allergy Severe Unverified 09/04/20 17:48 simvastatin Allergy Severe Kidney Unverified 09/04/20 17:48 failure venom-honey bee Allergy Severe Unverified 09/04/20 17:48 General Stated Complaint: GenMedical KARTHIK: 3 Review of Systems Constitutional Constitutional: Reports as per HPI, Denies chills, Denies fever(s) and Denies headache(s) ENT Ears, Nose, Mouth, and Throat: Denies headache(s) Cardiovascular Cardiovascular: Reports as per HPI, Denies chest pain, Denies irregular heart rhythm, Denies leg edema and Denies dyspnea Respiratory Respiratory: Reports as per HPI, Denies cough and Denies dyspnea Gastrointestinal Gastrointestinal: Reports as per HPI, Denies abdominal pain, Denies change in stool character, Denies nausea and Denies vomiting Neurologic Neurologic: Denies headache(s) [facility] Medical History (Updated 09/04/20 @ 18:59 by ROLF Yates) Alcohol dependence Alcoholic cirrhosis CHF (congestive heart failure) Hepatic encephalopathy Hyperlipidemia Surgical History Colonoscopy - MAC (09/29/16) Social History Smoking/Tobacco Use Status: Former Tobacco Use Smoking risk assessment performed?: Yes Alcohol Intake: former Drug use: Never Substance use type: does not use Do you feel safe at home: Yes Do you feel safe in your relationship?: Yes Exam Const General: cooperative, healthy appearing, comfortable and no acute distress Nutritional Appearance: average body habitus and well nourished Orientation: alert and awake Resp Effort & Inspection: normal respiratory effort, able to speak in complete sentences and no respiratory distress Auscultation: clear to auscultation bilaterally Cardio Rate: regular rate Rhythm: regular rhythm Heart Sounds: S1 normal and S2 normal Skin General skin exam: no rashes or lesions noted Neuro General: patient alert and patient awake Cognition: normal cognition Speech: speech normal Gait: normal gait Psych Appearance: grossly normal and well kempt Mental Status: mental status grossly normal Speech and Movement: speech and movement normal Course Vital Signs Vital signs: Vital Signs Temperature 36.7 C 09/04/20 17:45 Pulse 61 09/04/20 17:45 Respiratory Rate 20 09/04/20 17:45 Blood Pressure 133/52 L 09/04/20 17:45 Pulse Oximetry 99 09/04/20 17:45 Temperature 36.7 C 09/04/20 17:45 Temperature Source Skin 09/04/20 17:45 Pulse 61 09/04/20 17:45 Respiratory Rate 20 09/04/20 17:45 Respiratory Effort Non-Labored 09/04/20 17:53 Blood Pressure 133/52 L 09/04/20 17:45 Blood Pressure Position Sitting 09/04/20 17:45 Pulse Oximetry 99 09/04/20 17:45 Oxygen Delivery Method Room Air 09/04/20 17:45 Oxygen Flow Rate 0 09/04/20 17:45 Pain Level 0 09/04/20 17:45
[2020-09-04 18:25] LABS: Abs Immature Grans 0.04 10^3/uL (0.0-0.06); Absolute Eosinophil Count 0.34 10^3/uL (0.0-0.7); Absolute Lymphocyte Count 1.24 10^3/uL (1.2-3.4); Absolute Neutrophil Count 4.76 10^3/uL (1.2-6.7); Basophils % 1.3; Eosinophils % 4.4; HGB 10.7 g/dL (11.2-15.7); Immature Grans % 0.5; Lymphocytes % 16.1; MCH 36.5 pg (27.0-33.0); MCHC 34.5 % (32.0-36.0); MCV 105.8 fL (80-95); MPV 11.3 fL (8.0-11.0); Monocytes % 15.6; Neutrophils % 62.1; Nucleated RBC 0 %; Platelet Count 124 10^3/uL (130-400); RBC 2.93 10^6/uL (3.93-5.22); RDW 15.8 % (11.7-14.6); RDW-SD 61.1 fL; WBC 7.68 10^3/uL (4.4-10.8)
[2020-09-04 18:36] LABS: Diff Comment RBC Morph Reviewed
[2020-09-04 18:39] LABS: ALT 49 U/L (14-59); AST 59 U/L (15-37); Albumin 2.2 g/dL (3.4-5.0); Alkaline Phosphatase 114 U/L (46-116); Anion Gap 9.2 mmol/L (3-11); BUN 33 mg/dL (7-18); Bilirubin, Total 5.7 mg/dL (0.2-1.0); CO2 25.8 mmol/L (21.0-32.0); CREATININE 1.5 mg/dL (0.55-1.02); Chloride 104 mmol/L (98-107); Estimated GFR 34.43 (mL/min/1.73m2); Glucose 169 mg/dL (74-106); Magnesium 2.1 mg/dL (1.8-2.4); Potassium 5.3 mmol/L (3.5-5.1); Sodium 139 mmol/L (136-145); Total Protein 7.6 g/dL (6.4-8.2)
[2020-09-04 18:40] LABS: Macrocytosis 3+; Target Cells 2+
== END 2020-09-04 19:28 | disposition home or self-care (01) ==
PROVIDERS: Emergency Provider Physician Assistant; PCP Nurse Practitioner Family
DX: E87.5 Hyperkalemia (principal)
CPT/HCPCS: 36415; 80053; 93005; 99284; 83735; 85025; 93010

== ENCOUNTER 2020-09-10 04:23 | Outpatient (CLI) | payer MEDICARE, OTHER, SELFPAY ==
[2020-09-10 11:19] LABS: Abs Immature Grans 0.01 10^3/uL (0.0-0.06); Absolute Basophil Count 0.12 10^3/uL (0.0-0.2); Absolute Lymphocyte Count 1.39 10^3/uL (1.2-3.4); Absolute Monocyte Count 1.67 10^3/uL (0.1-0.8); Absolute Neutrophil Count 3.34 10^3/uL (1.2-6.7); Basophils % 1.7; Eosinophils % 7.1; HCT 29.4 % (36.0-46.0); HGB 10.2 g/dL (11.2-15.7); Immature Grans % 0.1; Lymphocytes % 19.8; MCH 36.3 pg (27.0-33.0); MCHC 34.7 % (32.0-36.0); MCV 104.6 fL (80-95); MPV 11.1 fL (8.0-11.0); Monocytes % 23.8; Nucleated RBC 0 %; Platelet Count 125 10^3/uL (130-400); RBC 2.81 10^6/uL (3.93-5.22); RDW-SD 58.4 fL; WBC 7.03 10^3/uL (4.4-10.8)
[2020-09-10 11:26] LABS: Prothrombin Time 12.5 sec (9.3-11.0)
[2020-09-10 11:28] LABS: INR 1.2 (0.9-1.1)
[2020-09-10 11:51] LABS: ALT 48 U/L (14-59); AST 62 U/L (15-37); Albumin 2.2 g/dL (3.4-5.0); Alkaline Phosphatase 115 U/L (46-116); Anion Gap 4.9 mmol/L (3-11); BUN 30 mg/dL (7-18); Bilirubin, Total 5.6 mg/dL (0.2-1.0); CO2 26.1 mmol/L (21.0-32.0); Calcium 8.5 mg/dL (8.5-10.1); Chloride 103 mmol/L (98-107); Estimated GFR 54.97 (mL/min/1.73m2); Glucose 70 mg/dL (74-106); Sodium 134 mmol/L (136-145)
[2020-09-10 12:44] LABS: Diff Comment Agrees w/ Instrument; Neutrophils % 47.5; Polychromasia Present
== END 2020-09-10 04:24 | disposition home or self-care (01) ==
LOC: LBO 04:23
PROVIDERS: PCP Nurse Practitioner Family; Visit Provider Nurse Practitioner Family
DX: K70.31 Alcoholic cirrhosis of liver with ascites (principal)
CPT/HCPCS: 36415; 80053; 85025; 85610

== ENCOUNTER 2020-09-13 01:46 | Outpatient (CLI) | payer MEDICARE, OTHER, SELFPAY ==
--- NOTE | 2020-09-13 | DI.CT_ITS ---
EXAM: CT ABDOMEN W CLINICAL HISTORY: ALCOHOLIC CIRRHOSIS OF LIVER,K70.30 TECHNIQUE: IV contrast administered 100 cc No oral contrast COMPARISON: CT CT ABDOMEN WO from 05/27/2019 FINDINGS: This study is limited to the abdomen, as per request. The pelvis was not scanned. Compared to prior CT scan May 27, 2019 The amount of ascites has decreased. There is an overall haziness of the mesentery but no prominent ascites at this time. However, there is advanced collateralization from portal hypertension with rec analization of the umbilical vein. Prominent subcutaneous collaterals in the anterior abdominal wall . There are no obvious esophageal varices. Liver appearance is cirrhotic. There is a cyst in the medial aspect of the liver but no discrete ofx nous solid mass evident. Cholelithiasis is again noted. There is also some gallbladder wall edema. The common bile duct is d ilated throughout its entire length with a diameter of 13 millimeter. There are no calculi seen in t he lower CBD nor mass at the pancreatic head level nor significant dilatation of the pancreatic duct. No obvious mass at the duodenal wall level. The spleen size is normal. There are no intrasplenic lesions. No evidence of splenic artery aneurys m. Splenic vein is thin. Patent. Cannot assess the directional flow within this vessel on a CT sca n. Pancreas duct diameter is upper normal. There is no distinct pancreatic mass evident. No peripancre atic fluid collection. There are no significant adrenal masses and there are no significant focal findings in either kidney. There is no hydronephrosis nor hydroureter. Abdominal aorta is not enlarged. There is no para-aortic adenopathy. There is no adenopathy around the aortic bifurcation nor along the visualized common iliac arteries no obvious bowel obstruction, r ealizing that the pelvis was not scanned. Osseous: No significant osseous lesions. Chronic multilevel degenerative disc disease. Visualized sacroiliac joints appear unremarkable. IMPRESSION: 1. Compared to the prior CT scan of May 2019 there is again noted a cirrhotic liver and findings consistent with portal venous hypertension/recanalized umbilical vein. There has been significant d ecrease in the amount of ascites. There is no evidence of obvious hepatoma. 2. Cholelithiasis again noted. Mild gallbladder wall edema noted. CBD diameter is now prominent exh ibiting diameter 12-13 millimeters without evidence of an obvious calculus nor mass in the lower CBD nor pancreatic head mass. Correlation with appropriate blood work recommended. 3. No significant renal findings.
[2020-09-13] MEDS: Normal Saline - Diluent 50 ML VIAL IV (09:06)
[2020-09-13] MEDS: Omnipaque 350 MG/ML 100 ML BTL IJ (09:06)
[2020-09-13] MEDS: Normal Saline Flush 10 ML SYR IVP (09:07)
== END 2020-09-13 02:06 ==
PROVIDERS: PCP Nurse Practitioner Family; Visit Provider Nurse Practitioner Family
DX: K70.30 Alcoholic cirrhosis of liver without ascites (principal); K80.20 Calculus of gallbladder without cholecystitis without obstruction; K76.6 Portal hypertension
CPT/HCPCS: 74160; J3490

== ENCOUNTER 2020-09-17 04:34 | Outpatient (CLI) | payer MEDICARE, OTHER, SELFPAY ==
[2020-09-17 11:37] LABS: Abs Immature Grans 0.02 10^3/uL (0.0-0.06); Absolute Basophil Count 0.08 10^3/uL (0.0-0.2); Absolute Eosinophil Count 0.48 10^3/uL (0.0-0.7); Absolute Lymphocyte Count 1.42 10^3/uL (1.2-3.4); Absolute Monocyte Count 1.64 10^3/uL (0.1-0.8); Absolute Neutrophil Count 3.89 10^3/uL (1.2-6.7); Basophils % 1.1; Eosinophils % 6.4; HGB 9.9 g/dL (11.2-15.7); Immature Grans % 0.3; Lymphocytes % 18.9; MCH 35.9 pg (27.0-33.0); MCHC 34.1 % (32.0-36.0); MCV 105.1 fL (80-95); Monocytes % 21.8; Neutrophils % 51.5; Nucleated RBC 0 %; RBC 2.76 10^6/uL (3.93-5.22); RDW 15.1 % (11.7-14.6); RDW-SD 58.2 fL; WBC 7.53 10^3/uL (4.4-10.8)
[2020-09-17 12:01] LABS: ALT 39 U/L (14-59); AST 63 U/L (15-37); Alkaline Phosphatase 131 U/L (46-116); Anion Gap 9.5 mmol/L (3-11); BUN 33 mg/dL (7-18); Bilirubin, Total 4.3 mg/dL (0.2-1.0); CO2 22.5 mmol/L (21.0-32.0); CREATININE 1.2 mg/dL (0.55-1.02); Calcium 8.9 mg/dL (8.5-10.1); Chloride 104 mmol/L (98-107); Estimated GFR 44.54 (mL/min/1.73m2); Glucose 82 mg/dL (74-106); Potassium 4.5 mmol/L (3.5-5.1); Sodium 136 mmol/L (136-145); Total Protein 6.9 g/dL (6.4-8.2)
[2020-09-17 12:12] LABS: Diff Comment Diff Reviewed; Macrocytosis 1+; Target Cells 2+
[2020-09-17 13:54] LABS: INR 1.3 (0.9-1.1); Prothrombin Time 12.6 sec (9.3-11.0)
== END 2020-09-17 04:35 | disposition home or self-care (01) ==
LOC: LBO 04:34
PROVIDERS: PCP Nurse Practitioner Family; Visit Provider Nurse Practitioner Family
DX: K70.31 Alcoholic cirrhosis of liver with ascites
CPT/HCPCS: 36415; 80053; 85025; 85610

== ENCOUNTER 2020-09-27 03:15 | Outpatient (CLI) | payer MEDICARE, OTHER, SELFPAY ==
[2020-09-27 07:51] LABS: Abs Immature Grans 0.02 10^3/uL (0.0-0.06); Absolute Eosinophil Count 0.46 10^3/uL (0.0-0.7); Absolute Lymphocyte Count 1.15 10^3/uL (1.2-3.4); Absolute Monocyte Count 1.28 10^3/uL (0.1-0.8); Absolute Neutrophil Count 2.98 10^3/uL (1.2-6.7); Basophils % 1.7; Eosinophils % 7.7; HCT 28.5 % (36.0-46.0); HGB 9.7 g/dL (11.2-15.7); Immature Grans % 0.3; Lymphocytes % 19.2; MCH 35.5 pg (27.0-33.0); MCV 104.4 fL (80-95); MPV 10.7 fL (8.0-11.0); Monocytes % 21.4; Neutrophils % 49.7; Nucleated RBC 0 %; Platelet Count 107 10^3/uL (130-400); RBC 2.73 10^6/uL (3.93-5.22); RDW 15.1 % (11.7-14.6); RDW-SD 56.8 fL; WBC 5.99 10^3/uL (4.4-10.8)
[2020-09-27 08:04] LABS: INR 1.3 (0.9-1.1); Prothrombin Time 12.6 sec (9.3-11.0)
[2020-09-27 09:00] LABS: ALT 35 U/L (14-59); AST 59 U/L (15-37); Albumin 2.2 g/dL (3.4-5.0); Alkaline Phosphatase 108 U/L (46-116); Anion Gap 9.2 mmol/L (3-11); BUN 26 mg/dL (7-18); Bilirubin, Total 4.8 mg/dL (0.2-1.0); CO2 25.8 mmol/L (21.0-32.0); CREATININE 1.1 mg/dL (0.55-1.02); Chloride 105 mmol/L (98-107); Estimated GFR 49.25 (mL/min/1.73m2); Glucose 109 mg/dL (74-106); Potassium 3.3 mmol/L (3.5-5.1); Sodium 140 mmol/L (136-145); Total Protein 6.8 g/dL (6.4-8.2)
== END 2020-09-27 03:16 | disposition home or self-care (01) ==
LOC: LBO 03:15
PROVIDERS: PCP Nurse Practitioner Family; Visit Provider Nurse Practitioner Family
DX: K70.31 Alcoholic cirrhosis of liver with ascites (principal)
CPT/HCPCS: 36415; 80053; 85025; 85610

== ENCOUNTER 2020-10-02 02:44 | Outpatient (CLI) | payer MEDICARE, OTHER, SELFPAY ==
[2020-10-02 08:05] LABS: Abs Immature Grans 0.02 10^3/uL (0.0-0.06); Absolute Eosinophil Count 0.38 10^3/uL (0.0-0.7); Absolute Lymphocyte Count 1.19 10^3/uL (1.2-3.4); Absolute Monocyte Count 1.23 10^3/uL (0.1-0.8); Basophils % 1.7; Eosinophils % 6.6; HCT 30.6 % (36.0-46.0); HGB 10.2 g/dL (11.2-15.7); Immature Grans % 0.3; Lymphocytes % 20.8; MCH 35.2 pg (27.0-33.0); MCHC 33.3 % (32.0-36.0); MCV 105.5 fL (80-95); MPV 10.8 fL (8.0-11.0); Monocytes % 21.5; Neutrophils % 49.1; Nucleated RBC 0 %; Platelet Count 120 10^3/uL (130-400); RDW 14.7 % (11.7-14.6); RDW-SD 57.1 fL; WBC 5.72 10^3/uL (4.4-10.8)
[2020-10-02 08:14] LABS: INR 1.2 (0.9-1.1); Prothrombin Time 12.4 sec (9.3-11.0)
[2020-10-02 09:03] LABS: ALT 40 U/L (14-59); AST 64 U/L (15-37); Albumin 2.3 g/dL (3.4-5.0); Alkaline Phosphatase 111 U/L (46-116); Anion Gap 7.8 mmol/L (3-11); BUN 20 mg/dL (7-18); Bilirubin, Total 4.7 mg/dL (0.2-1.0); CO2 28.2 mmol/L (21.0-32.0); Chloride 103 mmol/L (98-107); Estimated GFR 54.97 (mL/min/1.73m2); Glucose 126 mg/dL (74-106); Potassium 3.9 mmol/L (3.5-5.1); Sodium 139 mmol/L (136-145); Total Protein 7.1 g/dL (6.4-8.2)
== END 2020-10-02 02:45 | disposition home or self-care (01) ==
LOC: LBO 02:44
PROVIDERS: PCP Nurse Practitioner Family; Visit Provider Physician Assistant Medical
DX: K70.31 Alcoholic cirrhosis of liver with ascites (principal)
CPT/HCPCS: 36415; 80053; 85025; 85610

== ENCOUNTER 2020-10-09 13:13 | Outpatient (REF) | payer MEDICARE, OTHER, SELFPAY ==
[2020-10-09 13:04] LABS: Abs Immature Grans 0.01 10^3/uL (0.0-0.06); Absolute Basophil Count 0.07 10^3/uL (0.0-0.2); Absolute Eosinophil Count 0.25 10^3/uL (0.0-0.7); Absolute Lymphocyte Count 1.18 10^3/uL (1.2-3.4); Absolute Monocyte Count 1.19 10^3/uL (0.1-0.8); Absolute Neutrophil Count 3.18 10^3/uL (1.2-6.7); Basophils % 1.2; Eosinophils % 4.3; HCT 30.5 % (36.0-46.0); HGB 10.1 g/dL (11.2-15.7); Immature Grans % 0.2; Lymphocytes % 20.1; MCH 35.2 pg (27.0-33.0); MCHC 33.1 % (32.0-36.0); MCV 106.3 fL (80-95); MPV 11.8 fL (8.0-11.0); Monocytes % 20.2; Nucleated RBC 0 %; Platelet Count 118 10^3/uL (130-400); RBC 2.87 10^6/uL (3.93-5.22); RDW 14.6 % (11.7-14.6); RDW-SD 58.1 fL; WBC 5.88 10^3/uL (4.4-10.8)
[2020-10-09 13:18] LABS: INR 1.2 (0.9-1.1); Prothrombin Time 12.4 sec (9.3-11.0)
[2020-10-09 14:17] LABS: ALT 33 U/L (14-59); AST 48 U/L (15-37); Albumin 2.3 g/dL (3.4-5.0); Alkaline Phosphatase 120 U/L (46-116); Anion Gap 7.1 mmol/L (3-11); BUN 28 mg/dL (7-18); Bilirubin, Total 3.6 mg/dL (0.2-1.0); CO2 26.9 mmol/L (21.0-32.0); CREATININE 1.4 mg/dL (0.55-1.02); Calcium 9.3 mg/dL (8.5-10.1); Chloride 108 mmol/L (98-107); Estimated GFR 37.28 (mL/min/1.73m2); Glucose 135 mg/dL (74-106); Potassium 4.5 mmol/L (3.5-5.1); Sodium 142 mmol/L (136-145); Total Protein 6.8 g/dL (6.4-8.2)
== END 2020-10-09 13:14 | disposition home or self-care (01) ==
LOC: NCHCN 13:13
PROVIDERS: PCP Nurse Practitioner Family; Visit Provider Nurse Practitioner Family
DX: K70.30 Alcoholic cirrhosis of liver without ascites (principal)
CPT/HCPCS: 80053; 85025; 85610

== ENCOUNTER 2020-11-08 09:34 | Emergency (ER) | payer MEDICARE, OTHER, SELFPAY ==
[2020-11-08 09:38] VITALS: BP 159/74; PULSE 113; RESP 18; TEMP 37.3; O2SAT 96
--- NOTE | 2020-11-08 10:00 | ED.GENADUL_ITS ---
Discharge Plan Disposition Patient Disposition: HOME Condition: Improving Discharge Details Clinical Impression: Hemorrhage of skin lesion Primary Care Provider: Anna Marie Kaplan ED Provider: Marlen Watkins Home Meds and New Rx's Prescriptions: Continued niacin 250 MG capsule, extended release 500 mg PO Q OTHER DAY RF: 0 calcium carbonate [Calcium 500] 500 MG tablet 500 mg PO 2 tabs daily RF: 0 epinephrine 0.3 MG/0.3 ML auto-injector 0.3 mg IM PRN RF: 0 cholecalciferol (vitamin D3) 1,000 UNIT capsule 1,000 unit PO DAILY RF: 0 multivitamin [Multi-Day] 1 EACH tablet 1 ea PO DAILY RF: 0 VITAMIN C 500 mg PO DAILY RF: 0 lactulose 10 gram/15 mL solution 20 g PO TID RF: 0 hydroxyzine HCl 25 mg tablet 25 - 50 mg PO .QHS PRNRF: 0 furosemide 20 mg tablet 20 mg PO DAILY RF: 0 spironolactone 50 mg tablet 50 mg PO DAILY RF: 0 magnesium L-lactate [Magtab] 84 mg tablet extended release 84 mg PO TID RF: 0 Discharge Instructions Instructions: Potassium Nitrate/Silver Nitrate (On the skin), Acute Wounds (ED) Additional Instructions: Please follow-up with your waste minimization technician Dr. Fleming in the next 1 to 2 weeks. Leave the area alone for the next 3 to 5 days. The area was cauterized with a silver nitrate stick. It may turn white and be a scar to the area. Please return to the ED for any bleeding not controlled with 15 min of direct pressure, dizziness lightheadedness or any other concerns. Do not pick at or touch the area if possible. Follow up with primary care provider in 3-5 days. Return to ED sooner if any worsening or concerns. Increase oral fluids. Referrals: Cristino Fleming MD [MD CONSULTING PHYSICIAN] - 2 weeks Anna Marie Kaplan [Primary Care Provider] - Medical Decision Making 70-year-old female presents to the ER with a chief complaint of a lesion that which began bleeding approximately 1 hour prior to arrival. She did apply pressure. Upon initial presentation she does have what appears to be a arterial bleed to the left lower lip. She is not on any blood thinners currently. She has been seeing a waste minimization technician at [facility] for this previously. She has had another biopsy on another lesion on her face. She does not complains of dizziness or lightheadedness. She is mildly hypertensive upon initial exam. 1000: TXA and gauze was applied by staff counsel unsuccessful. Bleeding was stopped with silver nitrate stick for approximately 5 to 10 seconds. Patient is alert and oriented hemodynamically stable at this time. 1045: No further bleeding noted at the time. Patient is hemodynamically stable. Discussed return instructions and home care patient verbalized understanding. Patient's blood pressure and heart rate improved prior to discharge. No further bleeding noted. Patient discharged from the department. This text was generated using fivesquids.co.ukation system, please disregard any oddities of phrase or misspellings. HPI General Mode of arrival: ambulatory . Date/Time Provider Initiated Documentation: 11/08/20 10:00 . Limitations to Documentation: no limitations . Information obtained by: patient . HPI Narrative: 70-year-old female presents to the ER with a chief complaint of a lesion that which began bleeding approxima tely 1 hour prior to arrival. She did apply pressure. Upon initial presentation she does have what appears to be a arterial bleed to the left lower lip. She is not on any blood thinners currently. She has been seeing a waste minimization technician at [facility] for this previously. She has had another biopsy on another lesion on her face. She does not complains of dizziness or lightheadedness. She is mildly hypertensive upon initial exam. Related Data Home Medications Medication Instructions Recorded Confirmed calcium carbonate [Calcium 500] 500 mg PO 2 tabs daily 09/01/13 11/08/20 cholecalciferol (vitamin D3) 1,000 unit PO DAILY 09/01/13 11/08/20 epinephrine 0.3 mg IM PRN 09/01/13 11/08/20 multivitamin [Multi-Day] 1 ea PO DAILY 09/01/13 11/08/20 niacin 500 mg PO Q OTHER DAY 09/01/13 11/08/20 Vitamin C 500 mg PO DAILY 08/27/16 11/08/20 furosemide 20 mg PO DAILY 04/10/20 11/08/20 hydroxyzine HCl 25 - 50 mg PO .QHS PRN 04/10/20 11/08/20 spironolactone 50 mg PO DAILY 04/10/20 11/08/20 lactulose 20 g PO TID 02/12/21 05/27/21 magnesium L-lactate [Magtab] 84 mg PO TID 09/04/20 11/08/20 Allergies Allergy/AdvReac Type Severity Reaction Status Date / Time hydrochlorothiazide Allergy Severe Unverified 11/08/20 09:41 simvastatin Allergy Severe Kidney Unverified 11/08/20 09:41 failure venom-honey bee Allergy Severe Unverified 11/08/20 09:41 General Stated Complaint: Laceration KARTHIK: 4 Review of Systems All systems reviewed & are unremarkable except as noted in HPI and below ENT Ears, Nose, Mouth, and Throat: Denies vertigo, Denies dizziness, Reports lip swelling, Denies epistaxis, Reports mouth lesions (External lower lip skin lesion history of face lesions removed with biopsy), Denies tinnitus, Denies sore throat, Denies throat swelling and Denies tongue swelling Neurologic Neurologic: Denies vertigo and Denies dizziness Allergic/Immunologic Allergic/Immunologic: Reports lip swelling, Denies throat swelling and Denies tongue swelling [facility] Medical History (Updated 11/08/20 @ 10:50 by Marlen Watkins) Alcohol dependence Alcoholic cirrhosis CHF (congestive heart failure) Hepatic encephalopathy Hyperlipidemia Surgical History Colonoscopy - MAC (09/29/16) Social History Smoking/Tobacco Use Status: Former Tobacco Use Smoking risk assessment performed?: Yes Alcohol Intake: former Drug use: Never Substance use type: does not use Do you feel safe at home: Yes Do you feel safe in your relationship?: Yes Exam [facility] Head: laceration Head images: 1. Small bright red appears to be arterial bleed lesion to the left lower lip there is surrounding swelling mild ecchymosis. Mouth: lip abnormal left lower swelling (Mild left lower lip), laceration (Small pinpoint arterial/high-pressure capillary bright red bleed) and lesion Course Vital Signs Vital signs: Vital Signs Temperature 37.3 C 11/08/20 09:38 Pulse 113 H 11/08/20 09:38 Respiratory Rate 18 11/08/20 09:38 Blood Pressure 159/74 H 11/08/20 09:38 Pulse Oximetry 96 11/08/20 09:38 Temperature 37.3 C 11/08/20 09:38 Temperature Source Skin 11/08/20 09:38 Pulse 113 H 11/08/20 09:38 Respiratory Rate 18 11/08/20 09:38 Respiratory Effort Non-Labored 11/08/20 09:43 Blood Pressure 159/74 H 11/08/20 09:38 Blood Pressure Position Sitting 11/08/20 09:38 Pulse Oximetry 96 11/08/20 09:38 Oxygen Delivery Method Room Air 11/08/20 09:38 Oxygen Flow Rate 0 11/08/20 09:38 Pain Level 0 11/08/20 09:38 Procedures Other Description: Bleeding cessation, cauterization with silver nitrate stick applied. Hemostasis occurred. We will continue to observe for approximately 20 to 30 minutes.
[2020-11-08 10:47] VITALS: BP 123/54; PULSE 90; RESP 18; TEMP 37.1; O2SAT 94
== END 2020-11-08 10:58 | disposition home or self-care (01) ==
PROVIDERS: Emergency Provider Registered Nurse Emergency; PCP Nurse Practitioner Family
DX: L98.8 Other specified disorders of the skin and subcutaneous tissue (principal); S01.511A Laceration without foreign body of lip, initial encounter; X58.XXXA Exposure to other specified factors, initial encounter; Y84.8 Other medical procedures as the cause of abnormal reaction of the patient, or of later complication, without mention of misadventure at the time of the procedure
CPT/HCPCS: 12011

== ENCOUNTER 2020-12-05 06:41 | Emergency (ER) | payer MEDICARE, OTHER, SELFPAY ==
[2020-12-05] VITALS (54 sets, daily range): BP systolic 69–133; BP diastolic 22–47; PULSE 95–122; RESP 9–27; TEMP 36–36.6; O2SAT 96–100
[2020-12-05] MEDS: Normal Saline 1,000 ML 1000 ML IV (06:53)
--- NOTE | 2020-12-05 06:54 | ED.GENADUL_ITS ---
Discharge Plan Disposition Patient Disposition: [facility] Condition: Critical Discharge Details Clinical Impression: Acute upper GI bleed, Acute anemia, Acute hypotension, Acute kidney injury, Thrombocytopenia Primary Care Provider: Anna Marie Kaplan ED Provider: Karolina Vyas Home Meds and New Rx's Prescriptions: No Action niacin 250 MG capsule, extended release 500 mg PO Q OTHER DAY RF: 0 calcium carbonate [Calcium 500] 500 MG tablet 500 mg PO 2 tabs daily RF: 0 epinephrine 0.3 MG/0.3 ML auto-injector 0.3 mg IM PRN RF: 0 cholecalciferol (vitamin D3) 1,000 UNIT capsule 1,000 unit PO DAILY RF: 0 multivitamin [Multi-Day] 1 EACH tablet 1 ea PO DAILY RF: 0 VITAMIN C 500 mg PO DAILY RF: 0 lactulose 10 gram/15 mL solution 20 g PO TID RF: 0 flaxseed oil 1,000 mg Capsule 1,000 mg PO DAILY RF: 0 hydroxyzine HCl 25 mg tablet 25 - 50 mg PO .QHS PRNRF: 0 furosemide 20 mg tablet 20 mg PO DAILY RF: 0 spironolactone 50 mg tablet 50 mg PO DAILY RF: 0 magnesium L-lactate [Magtab] 84 mg tablet extended release 84 mg PO TID RF: 0 Medical Decision Making <Dillan Davis MD - Last Filed: 12/05/20 07:11> 70 yo female with hx of alcoholic cirrhosis with prior hepatic encephalopathy, chf, who comes in with vomit of blood. She states last night she was laying in bed then felt nausea and went to the bathroom and had one episode of vomit, unsure if it was blood as she has no lights on. She went back to bed and wasn't able to sleep all night due to nausea then this morning had two episodes of bright red blood vomit. Denies having this in the past. She denies abdominal pain, dyspnea, chest pain. She is caox4, has no tenderness on abdomen exam. Arrives with hypotension and tachycardia, and given her history suspect variceal bleed. Will obtain labs, initiate blood transfusion and administer protonix, ceftriaxone and octreotide pt signed out to Dr. Vyas pending response to therapies, labs and likely transfer Differential Diagnosis Differential Diagnosis: varices, ulcer Medical Records Medical records reviewed: Yes I reviewed the patient's medical records. <Karolina Vyas DO - Last Filed: 12/05/20 11:57> 0730 --please see Dr. Davis's note for initial presentation, exam and plan. Case endorsed to follow-up on labs and likely transfer for acute upper GI bleed. Shortly after my arrival to the ED, nurse noted that patient's map is 38. Within a few minutes, patient vomited a large amount of ioana blood, approximately 200 cc. [facility] called stat for emergent transfer. 2 units of PRBC transfusion initiated. Another 2 units ordered. Protonix infusion ordered. Abdomen is soft nontender. Patient is awake and alert. 0745 --BP 110/34. 0800 --labs resulting. Hemoglobin 6.9. Hematocrit 20. Platelets 74. Lactate 13.4. Alcohol 29. Pt states her last drink was 1 glass of wine 2 days ago. Case discussed with [facility] critical care Dr. Grier and accepts patient for transfer. Accepting physician Dr. Loaiza. They recommend FFP if INR greater than 1.5. [facility] --INR 2. 2 units of FFP ordered. Magnesium 1.5, will replete. Patient just vomited 700 cc of ioana blood. Dose of Compazine ordered. Blood pressure 126/41. Patient remains awake and alert and is protecting her airway. Waiting to hear if [facility] has a crew available. 0835 --discussed with [facility]. They were attempting to locate a helicopter as there apparently limited to 1. Discussed with [facility] and they will be able to transfer patient. Patient has received a total of 4 units of PRBCs. Will order an additional 2 units for transport. BP 109/39 0840 --patient vomited another 175 cc of blood. Dose of Zofran ordered. Awaiting FFP and 2 additional PRBC units. 0858 --BP 82/32. 0920 --[facility] here. BP 87/33. Pt receiving 6th unit of PRBC now. Will order an additional unit for transfer. 0950 --BP 98/39 prior to transfer. Medical Records Medical records reviewed: Yes I reviewed the patient's medical records. Lab Data Lab results reviewed: Yes I reviewed the patient's lab results. Labs: Laboratory Tests Range/Units 06/12/05/20 12/05/20 07:25 07:25 07:25 WBC (4.4-10.8) 10^3/uL 9.04 RBC (3.93-5.22) 10^6/uL 1.94 L Hgb (11.2-15.7) g/dL 6.9 L* Hct (36.0-46.0) % 20.1 L* MCV (80-95) fL 103.6 H MCH (27.0-33.0) pg 35.6 H MCHC (32.0-36.0) % 34.3 RDW (11.7-14.6) % 21.4 H Plt Count (130-400) 10^3/uL 74 L MPV (8.0-11.0) fL 12.5 H Immature Gran % 1.7 Neutrophils % 72.2 Lymphocytes % 5.5 Monocytes % 19.7 Eosinophils % 0.3 Basophils % 0.6 Nucleated RBC % % 0 Absolute Neutrophils (1.2-6.7) 10^3/uL 6.53 Absolute Lymphocytes (1.2-3.4) 10^3/uL 0.50 L Absolute Monocytes (0.1-0.8) 10^3/uL 1.78 H Absolute Eosinophils (0.0-0.7) 10^3/uL 0.03 Absolute Basophils (0.0-0.2) 10^3/uL 0.05 RBC Morphology See Below Polychromasia Present Hypochromasia 3+ Poikilocytosis 1+ Anisocytosis 2+ PT (9.3-11.0) sec INR (0.9-1.1) APTT (21.0-27.5) sec VBG Lactate (0.6-1.4) mmol/L 13.4 H* Sodium (136-145) mmol/L 146 H Potassium (3.5-5.1) mmol/L 3.7 Chloride (98-107) mmol/L 107 Carbon Dioxide (21.0-32.0) mmol/L 17.9 L Anion Gap (3-11) mmol/L 21.1 H BUN (7-18) mg/dL 35 H Creatinine (0.55-1.02) mg/dL 2.1 H Estimated GFR/1.73 m2 (mL/min/1.73m2) 23.35 Glucose (74-106) mg/dL 154 H Calcium (8.5-10.1) mg/dL 8.3 L Magnesium (1.8-2.4) mg/dL 1.5 L Total Bilirubin (0.2-1.0) mg/dL 4.3 H Conjugated Bilirubin (0.0-0.2) mg/dL 2.9 H AST (15-37) U/L 79 H ALT (14-59) U/L 33 Alkaline Phosphatase (46-116) U/L 78 Total Protein (6.4-8.2) g/dL 4.5 L Albumin (3.4-5.0) g/dL 1.4 L TSH (0.36-3.74) uIU/mL 3.48 Ethyl Alcohol (<3) mg/dL 29.3 Patient ABO/Rh Crossmatch Range/Units 12/05/20 12/05/20 07:25 07:25 WBC (4.4-10.8) 10^3/uL RBC (3.93-5.22) 10^6/uL Hgb (11.2-15.7) g/dL Hct (36.0-46.0) % MCV (80-95) fL MCH (27.0-33.0) pg MCHC (32.0-36.0) % RDW (11.7-14.6) % Plt Count (130-400) 10^3/uL MPV (8.0-11.0) fL Immature Gran % Neutrophils % Lymphocytes % Monocytes % Eosinophils % Basophils % Nucleated RBC % % Absolute Neutrophils (1.2-6.7) 10^3/uL Absolute Lymphocytes (1.2-3.4) 10^3/uL Absolute Monocytes (0.1-0.8) 10^3/uL Absolute Eosinophils (0.0-0.7) 10^3/uL Absolute Basophils (0.0-0.2) 10^3/uL RBC Morphology Polychromasia Hypochromasia Poikilocytosis Anisocytosis PT (9.3-11.0) sec 19.4 H INR (0.9-1.1) 2.0 H APTT (21.0-27.5) sec 33.7 H VBG Lactate (0.6-1.4) mmol/L Sodium (136-145) mmol/L Potassium (3.5-5.1) mmol/L Chloride (98-107) mmol/L Carbon Dioxide (21.0-32.0) mmol/L Anion Gap (3-11) mmol/L BUN (7-18) mg/dL Creatinine (0.55-1.02) mg/dL Estimated GFR/1.73 m2 (mL/min/1.73m2) Glucose (74-106) mg/dL Calcium (8.5-10.1) mg/dL Magnesium (1.8-2.4) mg/dL Total Bilirubin (0.2-1.0) mg/dL Conjugated Bilirubin (0.0-0.2) mg/dL AST (15-37) U/L ALT (14-59) U/L Alkaline Phosphatase (46-116) U/L Total Protein (6.4-8.2) g/dL Albumin (3.4-5.0) g/dL TSH (0.36-3.74) uIU/mL Ethyl Alcohol (<3) mg/dL Patient ABO/Rh A Positive Crossmatch See Detail HPI <Dillan Davis MD - Last Filed: 12/05/20 07:11> General Mode of arrival: EMS . Date/Time Provider Initiated Documentation: 12/05/20 06:46 . Limitations to Documentation: no limitations . Information obtained by: patient . History of Present Illness 70 year old F presents to the emergency department with the chief complaint of vomit blood, described as moderate, Patient started experiencing this hour(s) (3) and it has been intermittent. No relieving factors improve symptom(s), No exacerbating factors reported . Patient did receive the following treatments prior to arrival, none Related Data Home Medications Medication Instructions Recorded Confirmed calcium carbonate [Calcium 500] 500 mg PO 2 tabs daily 09/01/13 12/05/20 cholecalciferol (vitamin D3) 1,000 unit PO DAILY 09/01/13 12/05/20 epinephrine 0.3 mg IM PRN 09/01/13 12/05/20 multivitamin [Multi-Day] 1 ea PO DAILY 09/01/13 12/05/20 niacin 500 mg PO Q OTHER DAY 09/01/13 12/05/20 Vitamin C 500 mg PO DAILY 08/27/16 12/05/20 furosemide 20 mg PO DAILY 04/10/20 12/05/20 hydroxyzine HCl 25 - 50 mg PO .QHS PRN 04/10/20 12/05/20 spironolactone 50 mg PO DAILY 04/10/20 12/05/20 lactulose 20 g PO TID 07/27/20 12/05/20 magnesium L-lactate [Magtab] 84 mg PO TID 09/04/20 12/05/20 flaxseed oil 1,000 mg PO DAILY 12/05/20 12/05/20 Allergies Allergy/AdvReac Type Severity Reaction Status Date / Time hydrochlorothiazide Allergy Severe Unverified 12/05/20 08:24 simvastatin Allergy Severe Kidney Unverified 12/05/20 08:24 failure venom-honey bee Allergy Severe Unverified 12/05/20 08:24 General Stated Complaint: GI Bleed KARTHIK: 2 Review of Systems <Dillan Davis MD - Last Filed: 12/05/20 07:11> All systems reviewed & are unremarkable except as noted in HPI and below Constitutional Constitutional: Denies chills and Denies fever(s) Cardiovascular Cardiovascular: Denies chest pain and Denies dyspnea Respiratory Respiratory: Denies cough and Denies dyspnea Gastrointestinal Gastrointestinal: Denies abdominal pain PFSH <Dillan Davis MD - Last Filed: 12/05/20 07:11> Medical History (Updated 12/05/20 @ 08:14 by Karolina Vyas DO) Alcohol dependence Alcoholic cirrhosis CHF (congestive heart failure) Hepatic encephalopathy Hyperlipidemia Surgical History Colonoscopy - MAC (09/29/16) Social History Smoking/Tobacco Use Status: Former Tobacco Use Smoking risk assessment performed?: Yes Alcohol Intake: former Drug use: Never Substance use type: does not use Do you feel safe at home: Yes Do you feel safe in your relationship?: Yes Exam <Dillan Davis MD - Last Filed: 12/05/20 07:11> Const General: ill appearing Orientation: alert HENMT Head: normal to inspection Ears: external ears normal General nose exam: external nose normal Mouth: moist mucous membranes Eyes General: appearance normal, both eyes and all related structures Neck Neck: normal visual inspection Resp Effort & Inspection: normal respiratory effort and able to speak in complete sentences Cardio Rate: tachycardic GI Palpation: soft and nontender Skin General skin exam: other (jaundice) Neuro General: patient alert and patient oriented x3 Extrem General: normal to inspection Psych Mental Status: mental status grossly normal Course <Dillan Davis MD - Last Filed: 12/05/20 07:11> Vital Signs Vital signs: Vital Signs Temperature 36.4 C L 12/05/20 06:44 Pulse 107 H 12/05/20 06:44 Respiratory Rate 16 12/05/20 06:44 Blood Pressure 95/30 L 12/05/20 06:44 Pulse Oximetry 100 12/05/20 06:44 Temperature 36.4 C L 12/05/20 06:44 Temperature Source Temporal Artery Scan 12/05/20 06:44 Pulse 107 H 12/05/20 06:44 Respiratory Rate 16 12/05/20 06:44 Respiratory Effort Non-Labored 12/05/20 06:49 Blood Pressure 95/30 L 12/05/20 06:44 Pulse Oximetry 100 12/05/20 06:44 Oxygen Delivery Method Room Air 12/05/20 06:44 Oxygen Flow Rate 0 12/05/20 06:44 Pain Level 5 12/05/20 06:50 <Karolina Vyas DO - Last Filed: 12/05/20 11:57> Critical Care Time Critical Care Time: Yes Total Critical Care Time: 90 Attestation: I spent 120 minutes of critical care time with this patient. This does not include time spent on separately reported billable procedures. Sign Out <Dillan Davis MD - Last Filed: 12/05/20 07:11> Sign Out Data: Sign Out Comment: hx of alcohol cirrhosis, having bright red vomit this morning. Hypotensive on arrival, protonix, ceftriaxone octreotide as well as blood transfusion ordered, labs pending will likely need transfer based on history Last updated by Dillan Davis MD at 12/05/20 07:12
[2020-12-05] MEDS: Pantoprazole 40 MG VIAL IVP (07:03)
[2020-12-05] MEDS: Ondansetron 4 MG/2 ML VIAL IVP ×2 (07:32→09:00)
[2020-12-05 07:38] LABS: Abs Immature Grans 0.15 10^3/uL (0.0-0.06); Absolute Basophil Count 0.05 10^3/uL (0.0-0.2); Absolute Eosinophil Count 0.03 10^3/uL (0.0-0.7); Absolute Monocyte Count 1.78 10^3/uL (0.1-0.8); Absolute Neutrophil Count 6.53 10^3/uL (1.2-6.7); Basophils % 0.6; Eosinophils % 0.3; Immature Grans % 1.7; Lymphocytes % 5.5; MCH 35.6 pg (27.0-33.0); MCHC 34.3 % (32.0-36.0); MCV 103.6 fL (80-95); MPV 12.5 fL (8.0-11.0); Monocytes % 19.7; Neutrophils % 72.2; Nucleated RBC 0 %; RBC 1.94 10^6/uL (3.93-5.22); RDW 21.4 % (11.7-14.6); RDW-SD 79.5 fL; WBC 9.04 10^3/uL (4.4-10.8)
[2020-12-05] MEDS: PANTOPRAZOLE 80 MG in Normal Saline 100 ML 10 MG IV (07:42)
[2020-12-05 07:43] LABS: Lactate 13.4 mmol/L (0.6-1.4)
[2020-12-05 07:45] LABS: HCT 20.1 % (36.0-46.0); HGB 6.9 g/dL (11.2-15.7)
[2020-12-05] MEDS: Normal Saline 1,000 ML 150 ML IV (07:51)
[2020-12-05 07:54] LABS: PTT Activated 33.7 sec (21.0-27.5)
[2020-12-05 07:58] LABS: Anisocytosis 2+; Diff Comment Agrees w/ Instrument; Hypochromasia 3+; Platelet Count 74 10^3/uL (130-400); Polychromasia Present
[2020-12-05 07:59] LABS: Poikilocytes 1+
[2020-12-05 08:10] LABS: ALT 33 U/L (14-59); AST 79 U/L (15-37); Albumin 1.4 g/dL (3.4-5.0); Alkaline Phosphatase 78 U/L (46-116); Anion Gap 21.1 mmol/L (3-11); BUN 35 mg/dL (7-18); Bilirubin, Direct 2.9 mg/dL (0.0-0.2); Bilirubin, Total 4.3 mg/dL (0.2-1.0); CO2 17.9 mmol/L (21.0-32.0); CREATININE 2.1 mg/dL (0.55-1.02); Calcium 8.3 mg/dL (8.5-10.1); Chloride 107 mmol/L (98-107); ETHANOL BLOOD 29.3 mg/dL (<3); Estimated GFR 23.35 (mL/min/1.73m2); Glucose 154 mg/dL (74-106); Magnesium 1.5 mg/dL (1.8-2.4); Potassium 3.7 mmol/L (3.5-5.1); Sodium 146 mmol/L (136-145); TSH (W/Ref FT4) 3.48 uIU/mL (0.36-3.74); Total Protein 4.5 g/dL (6.4-8.2)
[2020-12-05 08:17] LABS: Prothrombin Time 19.4 sec (9.3-11.0)
[2020-12-05] MEDS: cefTRIAXone 2 GM/50 ML BAG IVPB (08:17)
[2020-12-05] MEDS: MAGNESIUM SULFATE 1 GM/100 ML BAG IVPB (08:35)
[2020-12-05] MEDS: Prochlorperazine 10 MG/2 ML VIAL IVP (08:43)
== END 2020-12-05 10:08 | disposition short-term general hospital (02) ==
PROVIDERS: Emergency Medicine; Emergency Provider Physician Assistant; PCP Nurse Practitioner Family
DX: K92.2 Gastrointestinal hemorrhage, unspecified (principal); I95.89 Other hypotension; N17.9 Acute kidney failure, unspecified; D62 Acute posthemorrhagic anemia; R79.1 Abnormal coagulation profile; E83.42 Hypomagnesemia; F10.288 Alcohol dependence with other alcohol-induced disorder; Y90.1 Blood alcohol level of 20-39 mg/100 ml
CPT/HCPCS: 36415; 36430; 51702; 80053; 86850; 86900; 86901; 86920; 96361; 96365; 96375; 96376; 99291; 99292; 80320; 82248; 83605; 83735; 84443; 85025; 85610; 85730; J0780; J2354; J2405; J3475; P9016; P9059